=== PATIENT | male | born 1945 | race Caucasian/White ===

== ENCOUNTER 2018-07-07 09:39 | Inpatient (IN) | payer OTHER, BC ==
[2018-07-07] MEDS ORDERED: ACETAMINOPHEN 325 MG TABLET (FP) PO ONE (10:02)
[2018-07-07] MEDS ORDERED: ACETAMINOPHEN 325 MG TABLET (FP) ONE (10:20)
[2018-07-07] MEDS ORDERED: CLINDAMYCIN 600MG PREMIX IVPB 600 MG/50 ML BAG IVPB ONE ×2 (10:22→10:31)
[2018-07-07] MEDS ORDERED: PIPERACILLIN/TAZOB 4.5 GM 4.5 GM in DEXTROSE 5%-WATER 100 ML IVPB ONE (10:22)
[2018-07-07] MEDS ORDERED: morphine CARPU-JECT 4 MG/1 ML DISP.SYRIN IVPUSH ONE (10:22)
[2018-07-07] MEDS ORDERED: VANCOMYCIN 1 GM in D5W (PRE-DOCKED) 1,000 MG/250 ML IVPB ONE (10:22)
--- NOTE | 2018-07-07 10:24 | PDOC ---
Attending Attestation - Resident Resident Name: Cici Mcbride - ED Attending Attestation I have performed the following: I have examined & evaluated the patient, The case was reviewed & discussed with the resident, I agree w/resident's findings & plan - HPI HPI: 07/07/18 10:38 Александрandera 73 YOM with h/o peripheral arterial occlusive disease, Stage 3 CKD secondary to focal segmental glomerulosclerosis, CHF (EF 41%, on spirinolactone) , CAD s/p stents on ASA, HTN, HLD, Type 2 non insulin dependent diabetes mellitus, BPH presenting with progressively worsening left buttock and scrotal pain and swelling since yesterday, which started off as a boil on his buttock, today noted increasing burning pain and bruising to his scrotal sac. +fever and malaise, Tmax >100 in the ED. +constipation and SOB +smoking currently. prior PSH arthroscopy, inguinal hernia repair ~15 years ago and PCI cards: Dr Molina PMD Dr Heard 07/07/18 10:46 07/07/18 10:47 07/07/18 12:20 - Physicial Exam PE: 07/07/18 10:38 General: Ill appearing, moderate distress 2/2 fever. HEENT: NCAT, PERRL, EOMI, clear conjunctiva, anicteric, very dry mucus membranes Neck: neck supple, FROM Resp: poor inspiratory effort, mildly tachypneic CVS: RRR, no murmurs, 2+ peripheral pulses throughout, Abdomen: soft, protuberant, no rebound or guarding. : left buttock, perineum and scrotal erythema, firmness and tenderness; large edematous scrotal sac with +ecchymosis and tenderness along the underside Back: nontender, normal inspection and ROM MSK: no edema, SMALLS x4, ROM intact. No clubbing or cyanosis. normal bulk and tone. Neuro: alert Skin: warm and well perfused, cap refill <2 sec, very dry skin 07/07/18 12:10 - Critical Care Time Total Critical Care Time: 60 (severe sepsis/shock) Critical Care Statement: The care of this patient involved high complexity decision making to prevent further life threatening deterioration of the patient 's condition and/or to evaluate & treat vital organ system(s) failure or risk of failure. - Medical Decision Making 07/07/18 10:43 See HPI for details Vital signs reviewed, +febrile orally, moderate tachypnea 2/2 fevers. hemodynamically appropriate. DDx. nec fasciitis, fournieres gangrene, cellulitis, abscess, intra abdominal infection. Osteomyelitis, acute abdomen. Prior notes reviewed, including admissions, discharges and consultations. ED course: Highly suspicious for nec fasciitis/Fournieres gangrene with medical comorbidities and clinical presentation. Preop labs, TxS - sent Analgesia and antipyretics administered, broad spec abx. Surg cs with Dr Schmidt 1030am for evaluation and operative exploration/ evaluation. IV abx zosyn, vancomycin and clindamycin to cover for GN/GPs, anaerobes, mrsa and toxins if Clostridium, IVF, blood cultures drawn Npo since ~8am, no ASA today, took his usual meds today. - during ED stay, evolving ecchymosis/scrotal discoloration, and increased malodor. BP soft 90s/60s, being given IVF. continued to be monitored, on mainetnance fluids and s/p 2 L NSS for now. given low dose morphine for his weight, low suspicion for contribution to hypotension. 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 - lactic acidosis, likely from tissue ischemia/hypoperfusion and infection - given IVF, will need repeat. - labs and lytes with acidosis, leukocytosis 15K, c/w infection, acute on chronic kidney disease with Cr 1.1 --> 5, and mild K elevation with out acute EKG changes. old LBBB no anemia. lytes otherwise unremarkable. +ESR and CRP elevated as well. bedside limited soft tissue US: A lines diffusely c/w necrotizing fasciitis. not stable for imaging. planning for OR emergently with respective surgery team Dr Schmidt and Dr Olsen with urology ID consulted, broad spec abx administered spoke with cards Dr Slade, prior echo reviewed, requested per request of Dr Molina primary mutuel cashier. resident spoke with Dr Molina, pt's mutuel cashier. PMD noted LBBB in 2013, sent for additional testing. Had stenosis of LAD, prox and mid LAD stents placed. Most recent echo in May 2016 with EF 41% , moderately enlarged LV, mod-severe LV dysfunction, akinesis of septum w/ abnormal motion, moderately dilated b/l atrium, no valvular disease. ICU for higher level of care for septic shock 2/2 [address] CS with Dr Daigle and resident there notified.. admit for continued medical/surgical management. s/o RESIN COATER Ramirez, admitting to Dr Neumann 07/07/18 12:18 07/07/18 12:21 07/07/18 12:32 Heart Score/ECG Review #1 ECG reviewed & interpreted by me at: 10:00 General ECG Interpretation: Sinus Rhythm Compared to previous ECG there are: No significant change 07/07/18 11:57 EKG normal sinus rhythm at 95 bpm, no interval abnormalities, wide QRS, LBBB, ST and T wave segments and morphology normal. Nonspecific T wave abnormalities, LBBB noted similar to prior EKGs and mutuel cashier Procedures - Bedside Ultrasound Bedside Ultrasound: Skin Remarks: 07/07/18 11:39 POCUS soft tissue performed at bedside for perineum/scrotal swelling/erythema, eval for infection. views obtained: TV and sagittal of perineum and scrotal sac. findings include A line shadowing diffusely in all planes, small fluid collection. Impression: soft tissue fluid collection with A line/air artifacts c /w necrotizing fasciitis.
[2018-07-07] MEDS ORDERED: CLINDAMYCIN 900 MG PREMIX IVPB 900 MG/50 ML BAG IVPB ONE (10:28)
--- NOTE | 2018-07-07 10:28 | PDOC ---
History of Present Illness - History of Present Illness Initial Comments: Bam Carroll is a 73yo man with a PMH of DM, CAD s/p stents, HTN, HLD, COPD, RACHELE, PVD, BPH, h/o disk herniation who presents with 3 days of right buttock induration, now with scrotal swelling and discoloration, shortness of breath, constipation, urinary retention, and general malaise. He is most concerned about the constipation and "boil' on his buttock. He reports that he has been feeling very weak, and his notes that he fell 3 days ago and refused to go to the hospital when EMS was called. Since then, he has been unable to bear weight. He also notes constipation during the same time period, with his last BM 3 days ago. He has had a poor appetite and feels dehydrated. His urine has been dark with decreased output and some urgency, and he reports lower abdominal pain. He has had some shortness of breath worsening over the past few days as well. He also reports having a very painful "boil" on his right buttock, starting similar to a pimple, which he has had in the past. Previously, the boils resolved with warm compresses, but the area appears to be getting worse this time. His also reports that she noticed a bruise on his scrotum last night. She is very concerned that he looks generally ill. Neither of them has noted any fever recently. Mr Carroll reports smoking 2 PPD for many years, including the past few days, and drinks 6 beers per night. He takes Percocet 5/ 325 for chronic back pain approximately 3 times per day but this has not been helping with the recent buttock pain. He took all of his medications today other than his ASA. <Cici Mcbride - Last Filed: 07/07/18 19:39> <Hannah Boggs - Last Filed: 07/08/18 18:42> - General Chief Complaint: Weakness Stated Complaint: FEVER, WEAKNESS Time Seen by Provider: 07/07/18 10:22 Past History - Past Medical History Anemia: No Asthma: No Cancer: No Cardiac Disorders: Yes CVA: No COPD: No CHF: No Dementia: No Diabetes: Yes GI Disorders: No Disorders: Yes (uti) HTN: Yes Hypercholesterolemia: No Liver Disease: No Seizures: No Thyroid Disease: No - Surgical History Abdominal Surgery: Yes (hernia) Appendectomy: No Cardiac Surgery: Yes (stent) Cholecystectomy: No Lung Surgery: No Neurologic Surgery: No Orthopedic Surgery: Yes (left shoulder arthroscopy) - Suicide/Smoking/Psychosocial Hx Smoking History: Current every day smoker Have you smoked in the past 12 months: Yes Number of Cigarettes Smoked Daily: 40 If you are a former smoker, when did you quit?: NOVEMBER 2011 Information on smoking cessation initiated: Yes 'Breaking Loose' booklet given: 06/09/15 Hx Alcohol Use: Yes (beer every day) Drug/Substance Use Hx: No Substance Use Type: Alcohol Hx Substance Use Treatment: No <Cici Mcbride - Last Filed: 07/07/18 19:39> <Hannah Boggs - Last Filed: 07/08/18 18:42> - Past Medical History Allergies/Adverse Reactions: Allergies Allergy/AdvReac Type Severity Reaction Status Date / Time No Known Drug Allergies Allergy Verified 07/07/18 09:45 Home Medications: Ambulatory Orders Carvedilol [Coreg -] 25 mg PO BID 06/09/15 Cyanocobalamin (Vitamin B-12) [Vitamin B-12] 1,000 mcg PO DAILY 06/09/15 Folic Acid - 1 mg PO DAILY 06/09/15 Glyburide [Diabeta] 1.25 mg PO HS 06/09/15 Methyl-B12/l-Mefolate/B6 Phos [Metanx Tablet] 1 each PO BID 06/09/15 Multivit-Min/FA/Lycopen/Lutein [Centrum Silver Tablet] 1 each PO DAILY 06/09/15 [place]-3 Fatty Acids [Fish Oil] 1,200 mg PO BID 06/09/15 Rosuvastatin Calcium [Crestor] 40 mg PO DAILY 06/09/15 Silodosin [Rapaflo] 8 mg PO DAILY 06/09/15 Spironolactone [Aldactone] 25 mg PO DAILY 06/09/15 Glyburide [Diabeta -] 2.5 mg PO AM 07/07/18 Review of Systems - Review of Systems Comments:: General: No known fever, +malaise, +poor appetite HEENT: No changes in vision, no changes in hearing, no congestion, no sore throat CV: No chest pain, no palpitation Pulm: +increased SOB GI: No nausea or vomiting, +constipation, no melena : +dark urine, +scrotal swelling and "bruise" - See HPI Musc: +back pain, +BLE weakness (new) Skin: Erythema on R buttock, scrotum Endo: No excessive thirst, no heat/cold intolerance Heme: No unusual bruising or bleeding, no swollen glands Neuro: No syncope, no numbness/tingling, +BLE weakness Vasc: No claudication. h/o PVD Psych: No recent change in mood, no SI or HI <Cici Mcbride - Last Filed: 07/07/18 19:39> *Physical Exam - Vital Signs Last Vital Signs Temp Pulse Resp BP Pulse Ox 100.8 F H 93 H 22 H 119/54 L 97 07/07/18 09:40 07/07/18 09:40 07/07/18 09:40 07/07/18 09:40 07/07/18 09:59 - Physical Exam Comments: General: Appears ill. In moderate distress HEENT: . R eyelid does not open fully, injected sclera. EOMI. Dry mouth and lips. Cards: RRR, no murmur appreciated Pulm: Tachypnic. Loud expiratory wheeze. Abd: Protuberant. TTP in lower abd and suprapubic area /Vitals: Edematous, enlarged scrotum, TTP, indurated, erythematous. Inferior/ posterior scrotum with necrotic tissue visible. R buttock erythematous, indurated, no focal fluctuance or crepitus appreciated. Scrotum and R buttock TTP. Small amount of white crusting at urethral meatus. Ext: Atraumatic. Trace B/L pitting edema. ROM intact. b/l feet with white crusting/flaking between toes, possibly c/w fungal infection Vasc: Extremities WWP Neuro: Awake, oriented, CN grossly intact, normal speech, motor/sensory grossly intact and symmetric Psych: Mood appropriate to situation <Cici Mcbride - Last Filed: 07/07/18 19:39> - Vital Signs Last Vital Signs Temp Pulse Resp BP Pulse Ox 98.7 F 83 24 H 128/50 L 98 07/08/18 18:00 07/08/18 18:00 07/08/18 18:00 07/08/18 18:00 07/08/18 18:39 <Hannah Boggs - Last Filed: 07/08/18 18:42> Moderate Sedation - Procedure Monitoring Vital Signs: Procedure Monitoring Vital Signs Temperature 100.8 F H 07/07/18 09:40 Pulse Rate 93 H 07/07/18 09:40 Respiratory Rate 22 H 07/07/18 09:40 Blood Pressure 119/54 L 07/07/18 09:40 O2 Sat by Pulse Oximetry (%) 97 07/07/18 09:59 <Cici Mcbride - Last Filed: 07/07/18 19:39> - Procedure Monitoring Vital Signs: Procedure Monitoring Vital Signs Temperature 98.7 F 07/08/18 18:00 Pulse Rate 83 07/08/18 18:00 Respiratory Rate 24 H 07/08/18 18:00 Blood Pressure 128/50 L 07/08/18 18:00 O2 Sat by Pulse Oximetry (%) 98 07/08/18 18:39 <Hannah Boggs - Last Filed: 07/08/18 18:42> ED Treatment Course - LABORATORY CBC & Chemistry Diagram: 07/07/18 17:10 07/07/18 17:18 - RADIOLOGY Radiology Studies Ordered: Category Date Time Status CHEST X-RAY PORTABLE* [RAD] Stat Radiology 07/07/18 10:21 Ordered <iCci Mcbride - Last Filed: 07/07/18 19:39> - LABORATORY CBC & Chemistry Diagram: 07/08/18 05:30 07/08/18 05:30 - ADDITIONAL ORDERS Additional order review: 07/07/18 09:30 Blood Culture - Preliminary Blood - Peripheral Venous NO GROWTH OBTAINED AFTER 24 HOURS, INCUBATION TO CONTINUE FOR 4 DAYS. 07/07/18 09:20 Blood Culture - Preliminary Blood - Peripheral Venous NO GROWTH OBTAINED AFTER 24 HOURS, INCUBATION TO CONTINUE FOR 4 DAYS. 07/07/18 07/07/18 10:54 09:30 RBC 4.75 MCV 92.9 MCHC 34.6 RDW 14.4 MPV 9.0 Neutrophils % 89.9 H D Lymphocytes % 3.9 L D Monocytes % 5.8 Eosinophils % 0.1 D Basophils % 0.3 POC Glucometer 280 - Medications Given in the ED: ED Medications Discontinued Medications Generic Name Dose Route Start Last Admin Trade Name Freq PRN Reason Stop Dose Admin Acetaminophen 975 mg 07/07/18 10:02 07/07/18 10:23 Tylenol - PO 07/07/18 10:03 975 mg ONCE ONE Administration Albuterol Sulfate 1 amp 07/08/18 09:02 07/08/18 09:28 Ventolin 0.083% Nebulizer Soln - NEB 07/08/18 09:03 1 amp ONCE ONE Administration Albuterol Sulfate 1 amp 07/08/18 09:02 07/08/18 09:29 Ventolin 0.083% Nebulizer Soln - NEB 07/08/18 09:03 1 amp ONCE STA Administration Albuterol/Ipratropium 1 amp 07/08/18 06:13 07/08/18 07:10 Duoneb - NEB 07/08/18 06:14 1 amp ONCE ONE Administration Fentanyl 50 mcg 07/07/18 16:29 07/07/18 18:40 Sublimaze Injection - IVPUSH 07/08/18 06:00 50 mcg [id number] PRN Administration PAIN-PACU ORDER X 4 DOSES ONLY Heparin Sodium (Porcine) 5,000 unit 07/07/18 14:00 07/07/18 18:31 Heparin - SQ Not Given TID MIMI Clindamycin Phosphate 600 mg in 50 mls @ 100 mls/hr 07/07/18 10:22 07/07/18 11:02 Cleocin 600 Mg Premix Ivpb - IVPB 07/07/18 10:51 Not Given ONCE ONE Piperacillin Sod/Tazobactam 100 mls @ 200 mls/hr 07/07/18 10:22 07/07/18 11: 01 Sod 4.5 gm/ Dextrose IVPB 07/07/18 10:51 200 mls/hr ONCE ONE Administration Protocol Sodium Chloride 1,000 mls @ 150 mls/hr 07/07/18 10:30 07/07/18 11:16 Normal Saline - IV 150 mls/hr ASDIR MIMI Administration Sodium Chloride 1,000 mls @ 1,000 mls/hr 07/07/18 10:29 07/07/18 11:00 Normal Saline - IV 07/07/18 11:28 1,000 mls/hr ASDIR STA Administration Clindamycin Phosphate 900 mg in 50 mls @ 100 mls/hr 07/07/18 10:28 07/07/18 11:02 Cleocin 900 Mg Premix Ivpb - IVPB 07/07/18 10:57 100 mls/hr ONCE ONE Administration Vancomycin HCl 1,500 mg/ 500 mls @ 250 mls/hr 07/07/18 10:30 07/07/18 11:15 Dextrose IVPB 07/07/18 12:29 250 mls/hr ONCE ONE Administration Clindamycin Phosphate 600 mg in 50 mls @ 100 mls/hr 07/07/18 18:00 07/07/18 18:15 Cleocin 600 Mg Premix Ivpb - IVPB 100 mls/hr Q8H-IV MIMI Administration Protocol Sodium Chloride 1,000 mls @ 125 mls/hr 07/07/18 17:13 07/07/18 18:31 Normal Saline - IV 125 mls/hr ASDIR MIMI Administration Sodium Chloride 500 mls @ 500 mls/hr 07/08/18 02:56 07/08/18 04:45 Normal Saline - IV 07/08/18 03:55 500 mls/hr ASDIR STA Administration Lactated Ringer's 1,000 ml in 1,000 mls @ 1,000 mls/hr 07/08/18 11:13 11:20 Lactated Ringers Solution IV 07/08/18 12:12 1,000 mls/hr ONCE STA Administration Morphine Sulfate 4 mg 07/07/18 10:22 07/07/18 11:00 Morphine Injection - IVPUSH 07/07/18 10:23 4 mg ONCE ONE Administration Ondansetron HCl 4 mg 07/08/18 06:13 07/08/18 06:48 Zofran Injection IVPUSH 07/08/18 06:14 4 mg ONCE ONE Administration Sodium Chloride 1,000 ml 07/07/18 11:50 07/07/18 11:58 Normal Saline - IV 07/07/18 11:51 1,000 ml ONCE ONE Administration Sodium Chloride 1,000 ml 07/08/18 13:23 07/08/18 13:40 Normal Saline - IV 07/08/18 13:24 1,000 ml ONCE STA Administration Vancomycin HCl 1,000 mg 07/07/18 10:22 07/07/18 11:02 Vancomycin (Pre-Docked) IVPB 07/07/18 10:23 Not Given ONCE ONE Protocol Hannah Montoyadonato - Last Filed: 07/08/18 18:42> Medical Decision Making - Medical Decision Making 07/07/18 10:23 Bam Carroll is a 73yo man with a PMH of DM, CAD s/p stents, HTN, HLD, COPD, RACHELE, PVD, BPH, h/o disk herniation who presents with 3 days of right buttock induration, now with scrotal swelling and discoloration, shortness of breath, constipation, urinary retention, and general malaise. Infection in buttock, scrotum with necrotic tissue and malodor strongly suggesting raul's gangrene. - Surgery called - Sepsis workup ordered. CBC, CMP, cultures, lactate, trop, EKG, CXR, UA, urine culture. Adding ESR, CRP - 1L NS - Clindamycin, vanc, zosyn for suspected raul's - 4mg IV morphine for pain - Acetaminophen for fever 07/07/18 11:20 - Dr Schmidt to bedside. 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 PMD noted LBBB in 2013, sent for additional testing. Had stenosis of LAD, prox and mid LAD stents placed. Most recent echo in May 2016 with EF 41%, moderately enlarged LV, mod-severe LV dysfunction, akinesis of septum w/ abnormal motion, moderately dilated b/l atrium, no valvular disease. Recommending Dr Jeffery for cardiology consult. - Call placed to Dr Jeffery - Seen by Dr Huston, industrial refrigeration mechanic for Dr Vogel - Waiting for call back from medicine 07/07/18 11:54 - Dr Boggs spoke to admitting team, will come to see Mr Carroll - ICU called for consult - Chemistry resulted. Cr 5.0, most recent in system is 1.1. Potassium over 5 w/ o EKG changes. Lactate pending. - Will continue IV fluids - Bedside US completed w/ Dr Boggs. Indicates air in tissues, suggestive of gas- producing infection 07/07/18 12:14 - Necrotic tissue on scrotum now weeping - BP 90's/30's, continuing IVF - Called ICU a second time, spoke to Dr Boggs and will come to evaluate - Calling OR to see if they are ready for Mr Carroll to be brought up Seen and discussed with Dr Boggs. 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
[2018-07-07] MEDS ORDERED: SODIUM CHLORIDE 1,000 ML IV STA (10:29)
[2018-07-07] MEDS ORDERED: morphine SULFATE 4 MG/ML VIAL ONE (10:29)
[2018-07-07] MEDS ORDERED: VANCOMYCIN HCL 1,500 MG in DEXTROSE 5%-WATER - 500 ML IVPB ONE (10:30)
[2018-07-07] MEDS ORDERED: SODIUM CHLORIDE 1,000 ML IV SCH ×4 (10:30→20:35)
[2018-07-07] MEDS ORDERED: PIPERACILLIN/TAZOB 4.5 GM 4.5 GM/100 ML BAG IVPB ONE (10:30)
[2018-07-07] MEDS ORDERED: VANCOMYCIN 1 GRAM (PRE-DOCKED) 1,000 MG/250 ML BAG IVPB ONE (10:30)
[2018-07-07 11:00] LABS: BASO % 0.3 % (0-2.0); EOS % 0.1 % (0-4.5); HEMATOCRIT 44.1 % (35.4-49); HEMOGLOBIN 15.3 GM/dL (11.7-16.9); LYMPH % 3.9 % (8-40); MCH 32.1 pg (25.7-33.7); MCHC 34.6 g/dl (32.0-35.9); MEAN CELL VOLUME 92.9 fl (80-96); MONO % 5.8 % (3.8-10.2); NEUT % 89.9 % (42.8-82.8); PLATELET COUNT 228 K/MM3 (134-434); RBC 4.75 M/mm3 (4.00-5.60); RDW 14.4 % (11.9-15.9); WHITE BLOOD COUNT 15.5 K/mm3 (4.0-10.0)
[2018-07-07 11:04] LABS: VENOUS PC02 50.2 mmHg (41-51); VENOUS PH 7.22 (7.31-7.41); VENOUS PO2 30.8 mmHg (30-40)
[2018-07-07 11:09] LABS: INR 1.13 (0.83-1.09); PROTHROMBIN TIME (PATIENT) 13.3 SEC (9.7-13.0)
[2018-07-07 11:11] LABS: ACTIVATED PTT 32.2 SECONDS (25.2-36.5)
[2018-07-07 11:43] LABS: ALBUMIN 2.5 g/dl (3.4-5.0); ALK PHOS 91 U/L (45-117); ANION GAP 12 MMOL/L (8-16); BILIRUBIN,TOTAL 0.4 mg/dL (0.2-1); BLOOD UREA NITROGEN 75 mg/dL (7-18); CALCIUM 8.9 mg/dL (8.5-10.1); CHLORIDE 100 mmol/L (98-107); CO2 21 mmol/L (21-32); GLUCOSE,RANDOM 273 mg/dL (74-106); POTASSIUM 5.3 mmol/L (3.5-5.1); SGOT/AST 55 U/L (15-37); SGPT/ALT 53 U/L (13-61); SODIUM 133 mmol/L (136-145); TOT PROT 6.2 g/dl (6.4-8.2)
[2018-07-07] MEDS ORDERED: SODIUM CHLORIDE 0.9% 500 ML INFUS.BAG IV ONE (11:50)
--- NOTE | 2018-07-07 11:52 | CONSULT ---
Consult Consult Specialty:: General Surgery Referred by:: Hannah Boggs Reason for Consultation:: Nika's gangrene - History of Present Illness Chief Complaint: perirectal pain, redness, constipation History of Present Illness: 73yo M with HTN, HLD, CAD, afib, BPH, DM, PVD, CKD s/p bilateral hip replacement , inguinal hernia repair, cardiac stents, presents with perirectal pain for 3-4 days at home and no BM for 3 days (unusual per pt). He had associated sweats and chills but denies fever, has not eaten much in last few days but has not had N/V. He fell from bed to floor Tuesday and EMS was called to help him up, but he refused to go to hospital per sister. He states he only bumped his right leg a little, no sig trauma. He was feeling weak though, per family, legs not holding him up. He took all meds this morning except baby asa, last the day before. Had coffee this am with a little milk, but nothing to eat today. Has not checked sugars at home for a few days. Smokes 2ppd last cig this morning, drinks about a 6pk of beer daily but not for a few days. Denies tremors, shakes , blackouts if not drinking. Takes Percocet 5/325 up to tid at home for chronic back pain. Also on aldactone, had this morning. 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 Labs are partially back showing wbc 15, Hb 15, fingerstick was 280. Clinda, Zosyn and Vanco are being given with saline. Temp was 100.8. BP running a bit low in 90s systolic. He had a dose of morphine 4mg. He admits to some lower abdominal/pelvic pain, related to this complaint. Urology Dr. Huston came to evaluate him with me as well. Pt's doctors include Dr. Feldman, nephrology, Dr. Medeiros, urology, Dr. Molina, cardiology, and a pain management doctor. - History Source History Provided By: Patient, Family Member (sister) Limitations to Obtaining History: No Limitations - Past Medical History Cardio/Vascular: Yes: CAD, HTN, Hyperlipdemia Pulmonary: Yes: Sleep Apnea Renal/: Yes: Renal Inusuff, BPH Musculoskeletal: Yes: Chronic low back pain, Osteoarthritis Endocrine: Yes: Diabetes Mellitus - Past Surgical History Past Surgical History: Yes: Cataract Removal (bilateral), Hernia Repair ( inguinal), Joint Replacement (bilateral hips), Stent (coronary x 3) - Alcohol/Substance Use Hx Alcohol Use: Yes (beer 6pk daily) History of Substance Use: reports: None (no illicits), Prescription (Percocet 5/ 325 up to tid) - Smoking History Smoking history: Current every day smoker Have you smoked in the past 12 months: Yes Aproximately how many cigarettes per day: 40 - Social History ADL: Independent History of Recent Travel: No Home Medications - Allergies Allergies/Adverse Reactions: Allergies Allergy/AdvReac Type Severity Reaction Status Date / Time No Known Drug Allergies Allergy Verified 07/07/18 09:45 - Home Medications Home Medications: Ambulatory Orders Carvedilol [Coreg -] 25 mg PO BID 06/09/15 Cyanocobalamin (Vitamin B-12) [Vitamin B-12] 1,000 mcg PO DAILY 06/09/15 Folic Acid - 1 mg PO DAILY 06/09/15 Glyburide [Diabeta] 1.25 mg PO HS 06/09/15 Methyl-B12/l-Mefolate/B6 Phos [Metanx Tablet] 1 each PO BID 06/09/15 Multivit-Min/FA/Lycopen/Lutein [Centrum Silver Tablet] 1 each PO DAILY 06/09/15 [place]-3 Fatty Acids [Fish Oil] 1,200 mg PO BID 06/09/15 Rosuvastatin Calcium [Crestor] 40 mg PO DAILY 06/09/15 Silodosin [Rapaflo] 8 mg PO DAILY 06/09/15 Spironolactone [Aldactone] 25 mg PO DAILY 06/09/15 Glyburide [Diabeta -] 2.5 mg PO AM 07/07/18 Home Medications (free text): asa 81mg daily - last 2d ago Family Disease History - Family Disease History Family History: Unable to Obtain (noncontributory) Review of Systems - Review of Systems Constitutional: reports: Chills, Diaphoresis, Loss of Appetite. denies: Fever Eyes: denies: Blurred Vision, Recent Change in Vision HENT: denies: Difficult Swallowing, Nasal Congestion, Throat Pain Neck: denies: Swollen Glands, Tenderness Cardiovascular: denies: Chest Pain, Palpitations Respiratory: reports: Wheezing (occasionally). denies: Cough, SOB Gastrointestinal: reports: Abdominal Pain (lower/pelvic), Constipation (with hpi ). denies: Diarrhea, Nausea, Vomiting Genitourinary: reports: Testicular Pain, Testicular Swelling (scrotal swelling) Musculoskeletal: reports: Back Pain. denies: Joint Pain, Muscle Pain Integumentary: reports: Change in Color, Erythema (perirectal/perineal/scrotal) Neurological: denies: Dizziness, Headache Psychiatric: denies: Anxiety, Depression Physical Exam Vital Signs: Vital Signs Temperature 100.8 F H 07/07/18 09:40 Pulse Rate 78 07/07/18 11:05 Respiratory Rate 24 H 07/07/18 11:05 Blood Pressure 90/45 L 07/07/18 11:05 O2 Sat by Pulse Oximetry (%) 94 L 07/07/18 11:05 Constitutional: Yes: Calm, Diaphoresis, Mild Distress (secondary to pain), Obese Eyes: Yes: Conjunctiva Clear, EOM Intact, Ptosis (right eye lids partially closed - pt did not notice) HENT: Yes: Atraumatic, Normocephalic Neck: Yes: Supple, Trachea Midline Cardiovascular: Yes: Regular Rate and Rhythm (distant heart sounds) Respiratory: Yes: Regular, Wheezes (faint expiratory wheezing bilaterally, breath sounds hard to hear posteriorly) Gastrointestinal: Yes: Normal Bowel Sounds, Soft, Abdomen, Obese, Tenderness ( mild low/pelvic no R/G) ...Rectal Exam: Yes: Erythema (right perineum and gluteal fold erythematous, indurated, tender, + gas in tissues on bedside US), Induration, Inflammation, Sphincter Tone Normal, Other (large prostate, little yellow liquid stool on glove tip) Renal/: Yes: Scrotal Edema (with erythema, posterior bruising with expanding area of purple/black skin). No: Urethral Discharge Musculoskeletal: No: Joint Stiffness, Joint Swelling Extremities: No: Cool, Cyanosis Edema: No Peripheral Pulses WNL: Yes (difficult to palpate but present) Integumentary: Yes: Erythema (see above - perineally). No: Jaundice, Rash Neurological: Yes: Alert, Oriented Psychiatric: Yes: Alert, Oriented Labs: CBC, BMP 07/07/18 09:30 CMP Sodium 133 mmol/L (136-145) L 07/07/18 09:30 Potassium 5.3 mmol/L (3.5-5.1) H 07/07/18 09:30 Chloride 100 mmol/L (98-107) 07/07/18 09:30 Carbon Dioxide 21 mmol/L (21-32) 07/07/18 09:30 Anion Gap 12 MMOL/L (8-16) 07/07/18 09:30 BUN 75 mg/dL (7-18) H 07/07/18 09:30 Creatinine 5.0 mg/dL (0.55-1.3) H 07/07/18 09:30 Creat Clearance w eGFR 11.50 (>60) 07/07/18 09:30 POC Glucometer 280 UNITS (80-120) 07/07/18 10:54 Random Glucose 273 mg/dL (74-106) H 07/07/18 09:30 Lactic Acid 3.4 mmol/L (0.4-2.0) H* 07/07/18 09:39 Calcium 8.9 mg/dL (8.5-10.1) 07/07/18 09:30 Total Bilirubin 0.4 mg/dL (0.2-1) 07/07/18 09:30 AST 55 U/L (15-37) H 07/07/18 09:30 ALT 53 U/L (13-61) 07/07/18 09:30 Alkaline Phosphatase 91 U/L (45-117) 07/07/18 09:30 Troponin I 0.04 ng/ml (0.00-0.05) 07/07/18 09:30 C-Reactive Protein 44.6 MG/DL (0.00-0.3) H 07/07/18 09:30 Total Protein 6.2 g/dl (6.4-8.2) L 07/07/18 09:30 Albumin 2.5 g/dl (3.4-5.0) L 07/07/18 09:30 INR, PTT INR 1.13 (0.83-1.09) H 07/07/18 09:30 Imaging - Results Ultrasound: Other (bedside done by ER shows some gas in tissue planes at scrotum and right perineum) Problem List - Problems (1) Nika's gangrene Assessment/Plan: admit to medicine, may need ICU NPO/generous IV hydration - very dry by labs IV antibiotics including Clinda started - ID consultation, Dr. Perry aware seen and discussed with Dr. Huston of Urology - Dr. Olsen to assist in OR cardiology consult Discussed with patient risks, benefits and alternatives of local possible wide debridement of Nika's gangrene, including but not limited to bleeding, infection, injury to adjacent structures, loss of testicle(s), need for further procedures, ; alternatives include antibiotics, delayed or no surgery - risks of this include progression of necrosis, sepsis, need for more extensive debridement/procedures, . Patient desires to proceed with operation - will take to OR emergently with Urology for above. Informed consent signed for same. Anesthesia plans spinal anesthetic possible ICU postop Parson to be placed intraoperatively GI/DVT prophylaxis glucose control This patient is critically ill. Time spent reviewing chart, examining patient, talking with providers and/or family and documentation is 60 minutes. Code(s): N49.3 - NIKA GANGRENE (2) Perineal pain Code(s): R10.2 - PELVIC AND PERINEAL PAIN (3) Scrotal pain Code(s): N50.82 - SCROTAL PAIN (4) CKD (chronic kidney disease) stage 3, GFR 30-59 ml/min Code(s): N18.3 - CHRONIC KIDNEY DISEASE, STAGE 3 (MODERATE) (5) BPH (benign prostatic hyperplasia) Code(s): N40.0 - BENIGN PROSTATIC HYPERPLASIA WITHOUT LOWER URINRY TRACT SYMP Qualifiers: Lower urinary tract symptom presence: unspecified whether lower urinary tract symptoms present Qualified Code(s): N40.0 - Benign prostatic hyperplasia without lower urinary tract symptoms (6) Coronary artery disease Code(s): I25.10 - ATHSCL HEART DISEASE OF [place] CORONARY ARTERY W/O ANG PCTRS Qualifiers: Coronary Disease-Associated Artery/Lesion type: [place] artery [place] vs. transplanted heart: [place] heart Associated angina: without angina Qualified Code(s): I25.10 - Atherosclerotic heart disease of [place] coronary artery without angina pectoris (7) Hyperlipidemia Code(s): E78.5 - HYPERLIPIDEMIA, UNSPECIFIED Qualifiers: Hyperlipidemia type: unspecified Qualified Code(s): E78.5 - Hyperlipidemia , unspecified (8) Hypertension Code(s): I10 - ESSENTIAL (PRIMARY) HYPERTENSION Qualifiers: Hypertension type: essential hypertension Qualified Code(s): I10 - Essential (primary) hypertension (9) Diabetes mellitus type 2 in obese Code(s): E11.69 - TYPE 2 DIABETES MELLITUS WITH OTHER SPECIFIED COMPLICATION; E66.9 - OBESITY, UNSPECIFIED (10) Tobacco dependence due to cigarettes Code(s): F17.210 - NICOTINE DEPENDENCE, CIGARETTES, UNCOMPLICATED
--- NOTE | 2018-07-07 12:13 | HP ---
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 He comes to the ED today with c/o of progressive pain and tenderness of his right scrotal region and left buttock region and swelling that started 4 days ago that worsened yesterday. The wound area started as a boil on this left buttocks yesterday and he noted to gradually decrease in size and today noted some burning pain and bruising and dark wound on his right scrotal sac. He had chills and diaphoresis at home. Did not take his temperature but felt as though he had a fever. He reports constipation and some shortness of breath with physical exertion. He reports poor PO intake and weakness for last few days. He usually drinks 6 pack of beer daily, but has not done so in last 2 days since he has not been feeling well. Did not take ASA this morning, took his Aldactone. In the ER labs revealed: fever of 100.8, leukocytosis 15, dyspnea, PIYUSH and hypotension. He was given Clindamycin, Zosyn and Vancomycin with fluid boluses. Blood cultures drawn. 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 ER course was notable for: (1) severe sepsis, necrotic tissue of right scrotum with weeping and foul odor. given clindamycin, vanco and zosyn. 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 CAD, history of stents Hypertension Hyperlipidemia Type 2 diabetes mellitus BPH PAST SURGICAL HISTORY: SH arthroscopy, inguinal hernia repair ~15 years ago and PCI Social History: Smokin packs per day, everyday Alcohol: 6 pack of beer every day, sometimes less Drugs: on oxycodone for chronic back pain Family History: Allergies No Known Drug Allergies Allergy (Verified 03/22/19 09:45) HOME MEDICATIONS: Home Medications Medication Instructions Recorded Carvedilol [Coreg -] 25 mg PO BID 06/09/15 Cyanocobalamin (Vitamin B-12) 1,000 mcg PO DAILY 06/09/15 [Vitamin B-12] Folic Acid - 1 mg PO DAILY 06/09/15 Glyburide [Diabeta] 1.25 mg PO HS 06/09/15 Methyl-B12/l-Mefolate/B6 Phos 1 each PO BID 06/09/15 [Metanx Tablet] Multivit-Min/FA/Lycopen/Lutein 1 each PO DAILY 06/09/15 [Centrum Silver Tablet] [place]-3 Fatty Acids [Fish Oil] 1,200 mg PO BID 06/09/15 Rosuvastatin Calcium [Crestor] 40 mg PO DAILY 06/09/15 Silodosin [Rapaflo] 8 mg PO DAILY 06/09/15 Spironolactone [Aldactone] 25 mg PO DAILY 06/09/15 Glyburide [Diabeta -] 2.5 mg PO AM 07/07/18 REVIEW OF SYSTEMS CONSTITUTIONAL: PRESENT: fever, chills, diaphoresis, generalized weakness, malaise, loss of appetite HEENT: Absent: rhinorrhea, nasal congestion, throat pain, throat swelling, difficulty swallowing, mouth swelling, ear pain, eye pain, visual changes CARDIOVASCULAR: Absent: chest pain, syncope, palpitations, irregular heart rate, lightheadedness , peripheral edema RESPIRATORY: Absent: cough, shortness of breath, dyspnea with exertion, orthopnea, wheezing, stridor, hemoptysis GASTROINTESTINAL: Absent: abdominal pain, abdominal distension, nausea, vomiting, diarrhea, constipation, melena, hematochezia GENITOURINARY: PRESENT: dysuria, genital pain MUSCULOSKELETAL: Absent: myalgia, arthralgia, joint swelling, back pain, neck pain SKIN: PRESENT: rash, itching HEMATOLOGIC/IMMUNOLOGIC: Absent: easy bleeding, easy bruising, lymphadenopathy, frequent infections ENDOCRINE: Absent: unexplained weight gain, unexplained weight loss, heat intolerance, cold intolerance NEUROLOGIC: Absent: headache, focal weakness or paresthesias, dizziness, unsteady gait, seizure, mental status changes, bladder or bowel incontinence PSYCHIATRIC: Absent: anxiety, depression, suicidal or homicidal ideation, hallucinations. PHYSICAL EXAMINATION Vital Signs - 24 hr 07/07/18 07/07/18 07/07/18 09:40 09:59 10:30 Temperature 100.8 F H Pulse Rate 93 H Pulse Rate [ 81 Apical] Respiratory 22 H 26 H Rate Blood Pressure 119/54 L Blood Pressure 98/47 L [Right Arm] O2 Sat by Pulse 97 97 94 L Oximetry (%) 07/07/18 07/07/18 07/07/18 11:05 11:15 11:30 Temperature Pulse Rate Pulse Rate [ 78 79 77 Apical] Respiratory 24 H 24 H 30 H Rate Blood Pressure Blood Pressure 90/45 L 87/55 L 99/46 L [Right Arm] O2 Sat by Pulse 94 L 92 L 93 L Oximetry (%) 07/07/18 07/07/18 11:45 12:01 Temperature Pulse Rate Pulse Rate [ 75 74 Apical] Respiratory 23 H 24 H Rate Blood Pressure Blood Pressure 88/41 L 99/34 L [Right Arm] O2 Sat by Pulse 93 L 94 L Oximetry (%) GENERAL: Awake, alert, and fully oriented, having pain and tenderness to right scrotum - pallorous and diaphoretic HEAD: Normal with no signs of trauma. EYES: Pupils equal, round and reactive to light, extraocular movements intact, sclera anicteric, conjunctiva clear. No lid lag. EARS, NOSE, THROAT: Ears normal, nares patent, oropharynx clear without exudates. moist mucous membranes. NECK: Normal range of motion, supple without lymphadenopathy, JVD, or masses. LUNGS: wheezing bilaterally HEART: Regular rate and rhythm, hypotensive on monitor ABDOMEN: obese soft abdomen MUSCULOSKELETAL: Normal range of motion at all joints. No bony deformities or tenderness. No CVA tenderness. UPPER EXTREMITIES: No peripheral edema. LOWER EXTREMITIES: trace peripheral edema. NEUROLOGICAL: Normal speech. Normal gait. PSYCHIATRIC: Cooperative. Good eye contact. Appropriate mood and affect. SKIN: left buttock, perineum and scrotal erythema, firmness and tenderness, foul odor, large edematous scrotal sac with +ecchymosis and tenderness along the underside, clear drainage. SKIN: , Laboratory Results - last 24 hr 07/07/18 07/07/18 07/07/18 09:30 09:30 09:30 WBC 15.5 H RBC 4.75 Hgb 15.3 Hct 44.1 MCV 92.9 MCH 32.1 MCHC 34.6 RDW 14.4 Plt Count 228 MPV 9.0 Absolute Neuts (auto) 14.0 H Neutrophils % 89.9 H D Lymphocytes % 3.9 L D Monocytes % 5.8 Eosinophils % 0.1 D Basophils % 0.3 Nucleated RBC % 0 ESR PT with INR 13.30 H INR 1.13 H PTT (Actin FS) 32.2 VBG pH 7.22 L POC VBG pCO2 50.2 POC VBG pO2 30.8 VBG HCO3 19.7 L VBG O2 Sat ([place]) 47.2 L VBG Base Excess -8.1 L Sodium Potassium Chloride Carbon Dioxide Anion Gap BUN Creatinine Creat Clearance w eGFR POC Glucometer Random Glucose Lactic Acid Calcium Total Bilirubin AST ALT Alkaline Phosphatase Troponin I C-Reactive Protein Total Protein Albumin 07/07/18 07/07/18 07/07/18 09:30 09:30 09:30 WBC RBC Hgb Hct MCV MCH MCHC RDW Plt Count MPV Absolute Neuts (auto) Neutrophils % Lymphocytes % Monocytes % Eosinophils % Basophils % Nucleated RBC % ESR 63 H PT with INR INR PTT (Actin FS) VBG pH POC VBG pCO2 POC VBG pO2 VBG HCO3 VBG O2 Sat (Elizabeth) VBG Base Excess Sodium 133 L Potassium 5.3 H Chloride 100 Carbon Dioxide 21 Anion Gap 12 BUN 75 H Creatinine 5.0 H Creat Clearance w eGFR 11.50 POC Glucometer Random Glucose 273 H Lactic Acid Calcium 8.9 Total Bilirubin 0.4 AST 55 H ALT 53 Alkaline Phosphatase 91 Troponin I 0.04 C-Reactive Protein 44.6 H Total Protein 6.2 L Albumin 2.5 L 07/07/18 07/07/18 09:39 10:54 WBC RBC Hgb Hct MCV MCH MCHC RDW Plt Count MPV Absolute Neuts (auto) Neutrophils % Lymphocytes % Monocytes % Eosinophils % Basophils % Nucleated RBC % ESR PT with INR INR PTT (Actin FS) VBG pH POC VBG pCO2 POC VBG pO2 VBG HCO3 VBG O2 Sat (Elizabeth) VBG Base Excess Sodium Potassium Chloride Carbon Dioxide Anion Gap BUN Creatinine Creat Clearance w eGFR POC Glucometer 280 Random Glucose Lactic Acid 3.4 H* Calcium Total Bilirubin AST ALT Alkaline Phosphatase Troponin I C-Reactive Protein Total Protein Albumin ASSESSMENT/PLAN: Patient is a 73 year old male with a significant past medical history of Ischemic right first toe with peripheral arterial occlusive disease, Stage 3 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 He comes to the ED today with c/o of progressive pain and tenderness of his right scrotal region and left buttock region and swelling that started 4 days ago that worsened yesterday. The wound area started as a boil on this left buttocks yesterday and he noted to gradually decrease in size and today noted some burning pain and bruising and dark wound on his right scrotal sac. He had chills and diaphoresis at home. Did not take his temperature but felt as though he had a fever. He reports constipation and some shortness of breath with physical exertion. In the ER labs revealed: fever of 100.8, leukocytosis 15, dyspnea, PIYUSH and hypotension. He was given Clindamycin, Zosyn and Vancomycin with fluid boluses. Blood cultures drawn. 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 ID/: Severe sepsis. 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 severe sepsis secondary to necrotic tissue of right scrotum with weeping and foul odor. given clindamycin, vanco and zosyn. blood cultures pending (wbc, tachycardia, hypotension, dyspena, lactic acidosis) stat to the OR today ekg: NSR LBBB, qtc 485 ID consulted by the ED ICU monitoring Renal Stage 3 CKD, baseline creat 1.1 PIYUSH in the setting of severe sepsis and scrotal abscess/infection Parson to be placed in surgery Monitor output Endocrine: Diabetes/type II DM novolog ss, bgms Card: Hypertension, now hypotensive severe sepsis fluid bolus lactic acid 3.4 repeat lactic acid ICU monitoring CAD, history of stents, Hyperlipidemia continue statin therapy lipid panel in a.m. cardiology following fen npo for or monitor electrolytes prophy full code Visit type - Emergency Visit Emergency Visit: Yes Care time: The patient presented to the Emergency Department on the above date and was hospitalized for further evaluation of their emergent condition. - New Patient This patient is new to me today: Yes Date on this admission: 07/07/18 - Critical Care Critical Care patient: No
[2018-07-07] MEDS ORDERED: BUPIVACAINE HCL/PF 0.5% (5MG/ML) 10 ML VIAL ONE (12:37)
[2018-07-07] MEDS ORDERED: morphine SULFATE 4 MG/ML VIAL IVPUSH PRN ×3 (12:52→20:35)
[2018-07-07] MEDS ORDERED: MIDAZOLAM HCL 2 MG/2 ML SINGLE DOSE VIAL ONE ×2 (13:18→13:19)
--- NOTE | 2018-07-07 13:28 | CONSULT ---
Consult Consult Specialty:: ICU Referred by:: Emergency Med/Surgery Reason for Consultation:: Postop care for fourniere's gangrene - History of Present Illness Chief Complaint: Scrotal swelling x1 week. 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 Pt has had night sweats and chills over the past week intermittently, and today was unable to walk for severe pain. Pt has not used any antibiotic or got any scrotal drainage prior to presentation and in the past, he has had numerous boils in the scrotal area that have resolved spontaneously without drainage or antibiotic use. Patient was septic- with WBC-15.5, BUN/Cr-75/5 VBG-7.22/50.2/30.8 EKG-Vent rate 95bpm, LBBB (unchanged from prior) with afib - History Source History Provided By: Patient, Family Member, Significant Other, Medical Record Limitations to Obtaining History: No Limitations - Past Medical History Cardio/Vascular: Yes: CAD, HTN, Hyperlipdemia Pulmonary: Yes: Sleep Apnea Renal/: Yes: Renal Inusuff, BPH Musculoskeletal: Yes: Chronic low back pain, Osteoarthritis Endocrine: Yes: Diabetes Mellitus - Past Surgical History Past Surgical History: Yes: Cataract Removal (bilateral), Hernia Repair ( inguinal), Joint Replacement (bilateral hips), Stent (coronary x 3) - Alcohol/Substance Use Hx Alcohol Use: Yes (beer every day) History of Substance Use: reports: None (no illicits), Prescription (Percocet 5/ 325 up to tid) - Smoking History Smoking history: Current every day smoker Have you smoked in the past 12 months: Yes Aproximately how many cigarettes per day: 40 If you are a former smoker, when did you quit?: NOVEMBER 2011 - Social History ADL: Independent History of Recent Travel: No Home Medications - Allergies Allergies/Adverse Reactions: Allergies Allergy/AdvReac Type Severity Reaction Status Date / Time No Known Drug Allergies Allergy Verified 07/07/18 09:45 - Home Medications Home Medications: Ambulatory Orders Carvedilol [Coreg -] 25 mg PO BID 06/09/15 Cyanocobalamin (Vitamin B-12) [Vitamin B-12] 1,000 mcg PO DAILY 06/09/15 Folic Acid - 1 mg PO DAILY 06/09/15 Glyburide [Diabeta] 1.25 mg PO HS 06/09/15 Methyl-B12/l-Mefolate/B6 Phos [Metanx Tablet] 1 each PO BID 06/09/15 Multivit-Min/FA/Lycopen/Lutein [Centrum Silver Tablet] 1 each PO DAILY 06/09/15 [place]-3 Fatty Acids [Fish Oil] 1,200 mg PO BID 06/09/15 Rosuvastatin Calcium [Crestor] 40 mg PO DAILY 06/09/15 Silodosin [Rapaflo] 8 mg PO DAILY 06/09/15 Spironolactone [Aldactone] 25 mg PO DAILY 06/09/15 Glyburide [Diabeta -] 2.5 mg PO AM 07/07/18 Review of Systems - Review of Systems Constitutional: reports: Chills, Fever, Malaise, Night Sweats Cardiovascular: denies: Chest Pain, Palpitations, Shortness of Breath Respiratory: denies: Cough Gastrointestinal: denies: Abdominal Pain Genitourinary: reports: Testicular Pain, Testicular Swelling Neurological: denies: Change in LOC, Confusion, Numbness Physical Exam Vital Signs: Vital Signs Temperature 100.8 F H 07/07/18 09:40 Pulse Rate 76 07/07/18 12:30 Respiratory Rate 26 H 07/07/18 12:30 Blood Pressure 106/41 L 07/07/18 12:30 O2 Sat by Pulse Oximetry (%) 95 07/07/18 12:30 Constitutional: Yes: Obese Eyes: Yes: Conjunctiva Clear HENT: Yes: Other (Dry mucous membranes) Neck: Yes: Supple Cardiovascular: Yes: S1, S2 Respiratory: Yes: CTA Bilaterally Gastrointestinal: Yes: Normal Bowel Sounds, Abdomen, Obese ...Rectal Exam: Yes: Deferred Renal/: Yes: Scrotal Edema (Hyperemic and markedly swollen tender bilateral scrotum. With 5x 5cm eschar more over posterior scrotum. No visible pus, markedly tender on mild palpation, firm. R inguinal tenderness, testes present in scrotum b/l.) Edema: No Peripheral Pulses WNL: Yes Neurological: Yes: Alert, Oriented ...Motor Strength: WNL Psychiatric: Yes: Alert, Oriented Labs: CBC, BMP 07/07/18 09:30 07/07/18 09:30 Assessment/Plan Ambulatory Orders Carvedilol [Coreg -] 25 mg PO BID 06/09/15 Cyanocobalamin (Vitamin B-12) [Vitamin B-12] 1,000 mcg PO DAILY 06/09/15 Folic Acid - 1 mg PO DAILY 06/09/15 Glyburide [Diabeta] 1.25 mg PO HS 06/09/15 Methyl-B12/l-Mefolate/B6 Phos [Metanx Tablet] 1 each PO BID 06/09/15 Multivit-Min/FA/Lycopen/Lutein [Centrum Silver Tablet] 1 each PO DAILY 06/09/15 [place]-3 Fatty Acids [Fish Oil] 1,200 mg PO BID 06/09/15 Rosuvastatin Calcium [Crestor] 40 mg PO DAILY 06/09/15 Silodosin [Rapaflo] 8 mg PO DAILY 06/09/15 Spironolactone [Aldactone] 25 mg PO DAILY 06/09/15 Glyburide [Diabeta -] 2.5 mg PO AM 07/07/18 Current Medications Acetaminophen (Tylenol -) 650 mg PO Q6H PRN PRN Reason: Pain Level 4-10 Carvedilol (Coreg -) 25 mg PO BID [facility] Chlorhexidine Gluconate (Hibiclens For Decolonization -) 1 applic TP HS [facility] Fentanyl (Sublimaze Injection -) 50 mcg IVPUSH [id number] PRN PRN Reason: PAIN-PACU ORDER X 4 DOSES ONLY Stop: 07/08/18 06:00 Folic Acid (Folic Acid -) 1 mg PO DAILY [facility] Heparin Sodium (Porcine) (Heparin -) 5,000 unit SQ TID [facility] Clindamycin Phosphate (Cleocin 600 Mg Premix Ivpb -) 600 mg in 50 mls @ 100 mls /hr IVPB Q8H-IV [facility]; Protocol Piperacillin Sod/Tazobactam (Sod 2.25 gm/ Dextrose) 50 mls @ 100 mls/hr IVPB Q6H-IV [facility]; Protocol Lactated Ringer's (Lactated Ringers Solution) 1,000 mls @ 125 mls/hr IV ASDIR [facility] Sodium Chloride (Normal Saline -) 1,000 mls @ 125 mls/hr IV ASDIR [facility] Insulin Aspart (Novolog Vial Sliding Scale -) 1 vial SQ ACHS [facility]; Protocol Morphine Sulfate (Morphine Sulfate) 4 mg IVPUSH Q4H PRN PRN Reason: PAIN 4-6 Mupirocin (Bactroban Ointment (For Decolonization) -) 1 applic NS BID [facility] Stop: 07/12/18 21:59 Nicotine (Nicoderm Patch -) 14 mg TD DAILY [facility] Ondansetron HCl (Zofran Injection) 4 mg IVPUSH Q6H PRN PRN Reason: NAUSEA AND/OR VOMITING Stop: 07/08/18 06:00 Oxycodone HCl (Roxicodone -) 5 mg PO Q6H PRN PRN Reason: Pain Level 7 - 10 BREAKTHROUGH Promethazine HCl (Phenergan Injection -) 12.5 mg IVPUSH Q6H PRN PRN Reason: NAUSEA-FOR RESCUE AFTER 15 MIN Stop: 07/08/18 06:00 Rosuvastatin Calcium (Crestor -) 40 mg PO [facility] Pt is a 73 yo M with a significant PMHx of Ischemic right first toe, PAD, 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 qsofa-2 (RR-23, 88/41, sats 93%)- High risk SOFA score-7 (<33% mortality) Bcx- pending AB- per ID Pt received -1L NS in ED Pt on zosyn -2.25mg Q6H-07/07/18 On clindamycin 600mg Q8H Cont NS @125/hr Bolus as needed to maintain MAP >65 Surgical debridement stat- Dr Medrano case Pain mx-Morphine 4mg Q4H, Oxycodone 5mg Q6H #Endo DM ISS Q6H BGM Q6H #Renal PIYUSH on CKD Likely prerenal in setting of sepsis Cont hydration CMP #Urology Fourniere's gangrene For Emergent surgical debridement #Cardio CAD Previous cardiac and peripheral stents Hypotensive Aggressive hydration, bolus as needed PAD High risk for VTE Hep sq Cont coreg 25mg bid #Resp Was on room air prior to surgery Supplemental O2 as needed to Maintain sats >92 Pt on CPAP at home- reports PSV of 6 Respiratory therapy order in for CPAP at night #FEN NS Monitor Lytes NPO #PPx Hep sq 5000 Q8h #Dispo ICU level care Visit type - Emergency Visit Emergency Visit: Yes ED Registration Date: 07/07/18 Care time: The patient presented to the Emergency Department on the above date and was hospitalized for further evaluation of their emergent condition. - New Patient This patient is new to me today: Yes Date on this admission: 07/07/18 - Critical Care Critical Care patient: Yes Total Critical Care Time (in minutes): 45 Critical Care Statement: The care of this patient involved high complexity decision making to prevent further life threatening deterioration of the patient 's condition and/or to evaluate & treat vital organ system(s) failure or risk of failure.
[2018-07-07] MEDS ORDERED: HEPARIN NA (PORCINE) 5,000 UNITS/ML 1ML VIAL SQ SCH (14:00)
--- NOTE | 2018-07-07 14:52 | CONSULT ---
Consult Consult Specialty:: Nephrology Reason for Consultation:: PIYUSH - History of Present Illness Chief Complaint: left buttock and scrotal pain History of Present Illness: Pt is a 73 year old male with pmhx of CKD, FSGS, PAD, CHF, CAD, cardiac stents, htn, HLD, bph and DM who presents to the ER with left buttock pain and scrotal edema. He has had the symptoms for the last 5 days but he felt they were worse today. He was found to have a fever in the ER. He is going to the OR and I saw him in OR holding. I was called to evaluate him for PIYUSH. He has been making urine but says that his urine was dark this morning. He did take his spironolactone today as well. He received about 3 liters of saline so far. - History Source History Provided By: Patient, Medical Record - Past Medical History Cardio/Vascular: Yes: CAD, HTN, Hyperlipdemia Pulmonary: Yes: Sleep Apnea Renal/: Yes: Renal Inusuff, BPH Musculoskeletal: Yes: Chronic low back pain, Osteoarthritis Endocrine: Yes: Diabetes Mellitus - Past Surgical History Past Surgical History: Yes: Cataract Removal (bilateral), Hernia Repair ( inguinal), Joint Replacement (bilateral hips), Stent (coronary x 3) - Alcohol/Substance Use Hx Alcohol Use: Yes (beer every day) History of Substance Use: reports: None (no illicits), Prescription (Percocet 5/ 325 up to tid) - Smoking History Smoking history: Current every day smoker Have you smoked in the past 12 months: Yes Aproximately how many cigarettes per day: 40 If you are a former smoker, when did you quit?: NOVEMBER 2011 - Social History ADL: Independent History of Recent Travel: No Home Medications - Allergies Allergies/Adverse Reactions: Allergies Allergy/AdvReac Type Severity Reaction Status Date / Time No Known Drug Allergies Allergy Verified 07/07/18 09:45 - Home Medications Home Medications: Ambulatory Orders Carvedilol [Coreg -] 25 mg PO BID 06/09/15 Cyanocobalamin (Vitamin B-12) [Vitamin B-12] 1,000 mcg PO DAILY 06/09/15 Folic Acid - 1 mg PO DAILY 06/09/15 Glyburide [Diabeta] 1.25 mg PO HS 06/09/15 Methyl-B12/l-Mefolate/B6 Phos [Metanx Tablet] 1 each PO BID 06/09/15 Multivit-Min/FA/Lycopen/Lutein [Centrum Silver Tablet] 1 each PO DAILY 06/09/15 [place]-3 Fatty Acids [Fish Oil] 1,200 mg PO BID 06/09/15 Rosuvastatin Calcium [Crestor] 40 mg PO DAILY 06/09/15 Silodosin [Rapaflo] 8 mg PO DAILY 06/09/15 Spironolactone [Aldactone] 25 mg PO DAILY 06/09/15 Glyburide [Diabeta -] 2.5 mg PO AM 07/07/18 Family Disease History - Family Disease History Family History: Denies Review of Systems - Review of Systems Constitutional: reports: Chills, Malaise Eyes: reports: No Symptoms HENT: reports: No Symptoms Neck: reports: No Symptoms Cardiovascular: reports: No Symptoms Respiratory: reports: No Symptoms Gastrointestinal: reports: No Symptoms Genitourinary: reports: Pain, Testicular Pain Musculoskeletal: reports: No Symptoms Integumentary: reports: No Symptoms Neurological: reports: No Symptoms Endocrine: reports: No Symptoms Hematology/Lymphatic: reports: No Symptoms Psychiatric: reports: No Symptoms Physical Exam Vital Signs: Vital Signs Temperature 100.8 F H 07/07/18 09:40 Pulse Rate 76 07/07/18 12:30 Respiratory Rate 26 H 07/07/18 12:30 Blood Pressure 106/41 L 07/07/18 12:30 O2 Sat by Pulse Oximetry (%) 95 07/07/18 12:30 Constitutional: Yes: Calm Eyes: Yes: Conjunctiva Clear HENT: Yes: Atraumatic Neck: Yes: Supple Cardiovascular: Yes: S1, S2 Respiratory: Yes: On Nasal O2 Gastrointestinal: Yes: Soft, Abdomen, Obese Renal/: Yes: Scrotal Edema Musculoskeletal: Yes: WNL Neurological: Yes: Oriented Psychiatric: Yes: Oriented Labs: CBC, BMP 07/07/18 09:30 07/07/18 09:30 Laboratory Tests 06/09/15 07/07/18 07/07/18 12:41 09:30 09:30 WBC 15.5 H Hgb 15.3 Sodium 133 L Potassium 5.3 H Chloride 100 Carbon Dioxide 21 Anion Gap 12 BUN 75 H Creatinine 5.0 H Random Glucose 273 H Lactic Acid Urine Color Yellow Urine Appearance Clear Urine pH 5.0 Ur Specific [place] 1.020 Urine Protein 3+ H Urine Glucose (UA) Negative Urine Ketones Negative Urine Blood Negative Urine Nitrite Negative Urine Bilirubin Negative Urine Urobilinogen Negative Ur Leukocyte Esterase Negative 07/07/18 07/07/18 09:39 11:30 WBC Hgb Sodium Potassium Chloride Carbon Dioxide Anion Gap BUN Creatinine Random Glucose Lactic Acid 3.4 H* 2.0 Urine Color Urine Appearance Urine pH Ur Specific [place] Urine Protein Urine Glucose (UA) Urine Ketones Urine Blood Urine Nitrite Urine Bilirubin Urine Urobilinogen Ur Leukocyte Esterase Imaging - Results Chest X-ray: Report Reviewed Problem List - Problems (1) Acute kidney injury superimposed on CKD Code(s): N17.9 - ACUTE KIDNEY FAILURE, UNSPECIFIED; N18.9 - CHRONIC KIDNEY DISEASE, UNSPECIFIED (2) Diabetes mellitus type 2 in obese Code(s): E11.69 - TYPE 2 DIABETES MELLITUS WITH OTHER SPECIFIED COMPLICATION; E66.9 - OBESITY, UNSPECIFIED (3) Diabetes Code(s): E11.9 - TYPE 2 DIABETES MELLITUS WITHOUT COMPLICATIONS Qualifiers: Diabetes mellitus type: type 2 Diabetes mellitus complication status: with circulatory complication Diabetes mellitus complication detail: with peripheral angiopathy without gangrene Qualified Code(s): E11.51 - Type 2 diabetes mellitus with diabetic peripheral angiopathy without gangrene (4) FSGS (focal segmental glomerulosclerosis) Code(s): N05.1 - UNSP NEPH SYNDROME W FOCAL AND SEGMENTAL GLOMERULAR LESIONS (5) Hypertension Code(s): I10 - ESSENTIAL (PRIMARY) HYPERTENSION Qualifiers: Hypertension type: essential hypertension Qualified Code(s): I10 - Essential (primary) hypertension Assessment/Plan Current Medications Generic Name Dose Route Start Last Admin Trade Name Freq PRN Reason Stop Dose Admin Chlorhexidine Gluconate 1 applic 07/07/18 22:00 Hibiclens For Decolonization - TP HS [facility] Heparin Sodium (Porcine) 5,000 unit 07/07/18 14:00 Heparin - SQ TID [facility] Sodium Chloride 1,000 mls @ 150 mls/hr 07/07/18 10:30 07/07/18 11:16 Normal Saline - IV 150 mls/hr ASDIR [facility] Administration Insulin Aspart 1 vial 07/07/18 16:30 Novolog Vial Sliding Scale - SQ ACHS [facility] Protocol Morphine Sulfate 4 mg 07/07/18 12:52 Morphine Sulfate IVPUSH Q4H PRN PAIN 4-6 Mupirocin 1 applic 07/07/18 22:00 Bactroban Ointment (For Decolonization) - NS 07/12/18 21:59 BID [facility] Impression 1. CKD with hx of FSGS 2. PVD 3. DM 4. HTN 5. hyperlipidemia 6. BPH 7. CAD 8. fourniers gangrene Plan - repeat bmp - check ua and lytes - pt will get whiting in or - check renal ultrasound - follow prelim renal workup - pt going to ICU for post op care - follow repeat potassium - hold spironolactone
--- NOTE | 2018-07-07 16:09 | CON.ID ---
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 He came to the ED today with c/ o of progressive pain and tenderness of his right scrotal region and left buttock region and swelling that started 4 days ago that worsened yesterday. The wound area started as a boil on this left buttocks yesterday and he noted to gradually decrease in size and today noted some burning pain and bruising and dark wound on his right scrotal sac. surgery has seen the patient and patient being taken immediately to the operating room with surgery and urology operated the patient patient septic scrotum was very tender and wound foul smellin patient has undergone extensive debridement of the wound also patient has gone into renal failure with high creatinine patient now in the icu he got vanco zosyn and clinda had to be operated under spinal because of resp issues - History Source History Provided By: Patient, Medical Record Limitations to Obtaining History: Clinical Condition - Past Medical History Cardio/Vascular: Yes: CAD, HTN, Hyperlipdemia Pulmonary: Yes: Sleep Apnea Renal/: Yes: Renal Inusuff, BPH Musculoskeletal: Yes: Chronic low back pain, Osteoarthritis Endocrine: Yes: Diabetes Mellitus - Past Surgical History Past Surgical History: Yes: Cataract Removal (bilateral), Hernia Repair ( inguinal), Joint Replacement (bilateral hips), Stent (coronary x 3) - Alcohol/Substance Use Hx Alcohol Use: Yes (beer every day) History of Substance Use: reports: None (no illicits), Prescription (Percocet 5/ 325 up to tid) - Smoking History Smoking history: Current every day smoker Have you smoked in the past 12 months: Yes Aproximately how many cigarettes per day: 40 If you are a former smoker, when did you quit?: NOVEMBER 2011 - Social History ADL: Independent History of Recent Travel: No Home Medications - Allergies Allergies/Adverse Reactions: Allergies Allergy/AdvReac Type Severity Reaction Status Date / Time No Known Drug Allergies Allergy Verified 07/07/18 09:45 - Home Medications Home Medications: Ambulatory Orders Carvedilol [Coreg -] 25 mg PO BID 06/09/15 Cyanocobalamin (Vitamin B-12) [Vitamin B-12] 1,000 mcg PO DAILY 06/09/15 Folic Acid - 1 mg PO DAILY 06/09/15 Glyburide [Diabeta] 1.25 mg PO HS 06/09/15 Methyl-B12/l-Mefolate/B6 Phos [Metanx Tablet] 1 each PO BID 06/09/15 Multivit-Min/FA/Lycopen/Lutein [Centrum Silver Tablet] 1 each PO DAILY 06/09/15 [place]-3 Fatty Acids [Fish Oil] 1,200 mg PO BID 06/09/15 Rosuvastatin Calcium [Crestor] 40 mg PO DAILY 06/09/15 Silodosin [Rapaflo] 8 mg PO DAILY 06/09/15 Spironolactone [Aldactone] 25 mg PO DAILY 06/09/15 Glyburide [Diabeta -] 2.5 mg PO AM 07/07/18 Review of Systems - Review of Systems Constitutional: reports: Fever Eyes: reports: No Symptoms HENT: reports: No Symptoms Neck: reports: No Symptoms Cardiovascular: reports: No Symptoms Respiratory: reports: SOB Gastrointestinal: reports: Abdominal Pain, Other Genitourinary: reports: Other (discoloration of the scrotal skin with boils) Musculoskeletal: reports: No Symptoms Neurological: reports: No Symptoms Endocrine: reports: No Symptoms Hematology/Lymphatic: reports: No Symptoms Psychiatric: reports: No Symptoms Physical Exam Vital Signs: Vital Signs Temperature 100.8 F H 07/07/18 09:40 Pulse Rate 76 07/07/18 12:30 Respiratory Rate 26 H 07/07/18 12:30 Blood Pressure 106/41 L 07/07/18 12:30 O2 Sat by Pulse Oximetry (%) 95 07/07/18 12:30 Constitutional: Yes: Well Nourished, Moderate Distress, Obese, Poor Hygeine Eyes: Yes: Conjunctiva Clear HENT: Yes: Atraumatic, Normocephalic Neck: Yes: Supple, Trachea Midline Cardiovascular: Yes: Regular Rate and Rhythm Respiratory: Yes: Regular, Poor Air Entry (bases) Gastrointestinal: Yes: Soft, Other (absent bowel sounds) Renal/: Yes: Scrotal Edema, Other (scrotal skin debridement) Musculoskeletal: Yes: Other Extremities: Yes: Other Wound/Incision: Yes: Other (dressing wet) Neurological: Yes: Alert Psychiatric: Yes: Alert Labs: CBC, BMP 07/07/18 09:30 07/07/18 09:30 Imaging - Results Chest X-ray: Report Reviewed, Image Reviewed X-ray: Report Reviewed, Image Reviewed Assessment/Plan Problem List - Problems (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 (2) Perineal pain Code(s): R10.2 - PELVIC AND PERINEAL PAIN (3) Scrotal pain Code(s): N50.82 - SCROTAL PAIN (4) CKD (chronic kidney disease) stage 3, GFR 30-59 ml/min Code(s): N18.3 - CHRONIC KIDNEY DISEASE, STAGE 3 (MODERATE) (5) BPH (benign prostatic hyperplasia) Code(s): N40.0 - BENIGN PROSTATIC HYPERPLASIA WITHOUT LOWER URINRY TRACT SYMP Qualifiers: Lower urinary tract symptom presence: unspecified whether lower urinary tract symptoms present Qualified Code(s): N40.0 - Benign prostatic hyperplasia without lower urinary tract symptoms (6) Coronary artery disease Code(s): I25.10 - ATHSCL HEART DISEASE OF [place] CORONARY ARTERY W/O ANG PCTRS Qualifiers: Coronary Disease-Associated Artery/Lesion type: [place] artery [place] vs. transplanted heart: [place] heart Associated angina: without angina Qualified Code(s): I25.10 - Atherosclerotic heart disease of [place] coronary artery without angina pectoris (7) Hyperlipidemia Code(s): E78.5 - HYPERLIPIDEMIA, UNSPECIFIED Qualifiers: Hyperlipidemia type: unspecified Qualified Code(s): E78.5 - Hyperlipidemia , unspecified (8) Hypertension Code(s): I10 - ESSENTIAL (PRIMARY) HYPERTENSION Qualifiers: Hypertension type: essential hypertension Qualified Code(s): I10 - Essential (primary) hypertension (9) Diabetes mellitus type 2 in obese Code(s): E11.69 - TYPE 2 DIABETES MELLITUS WITH OTHER SPECIFIED COMPLICATION; E66.9 - OBESITY, UNSPECIFIED (10) Tobacco dependence due to cigarettes Assessment/Plan: nicotine patch in use Code(s): F17.210 - NICOTINE DEPENDENCE, CIGARETTES, UNCOMPLICATED plan will continue abx await for cx reports close watch on the patient resp support wound care rest as per surgery cc 45 min
[2018-07-07] MEDS ORDERED: ONDANSETRON 4 MG/2 ML VIAL IVPUSH PRN (16:29)
[2018-07-07] MEDS ORDERED: PROMETHAZINE HCL 25 MG/1 ML VIAL IVPUSH PRN (16:29)
[2018-07-07] MEDS ORDERED: INSULIN SLIDING SCALE (NOVOLOG) 1 VIAL SQ SCH (16:30)
[2018-07-07] MEDS ORDERED: LACTATED RINGERS SOLUTION 1,000 ML IV SCH (16:30)
--- NOTE | 2018-07-07 16:38 | CON.CARD ---
Consult Consult Specialty:: Cardiology Referred by:: ER Reason for Consultation:: preop cardiac evaluation - History of Present Illness Chief Complaint: scrotal gangrene History of Present Illness: 73 year old man past medical history of Ischemic right first toe with peripheral arterial occlusive disease s/p multiple prior peripheral stents, Stage 3 CKD secondary to focal segmental glomerulosclerosis, CAD history of stent prox and mid LAD stents, moderate to severe LV systolic dysfunction on last echo 2017, chronic systolic CHF, Hypertension, Hyperlipidemia, type 2 diabetes mellitus, BPH. came to ER with c/o of progressive pain and tenderness of his right scrotal region and left buttock region and swelling that started 4 days ago that worsened yesterday. 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 Pt seen and examined in PACU in nad. denies any chest pain, sob, palpitations either now or recently prior to admission. denies LE edema. states he does not take Lasix at home. - History Source History Provided By: Patient, Medical Record Limitations to Obtaining History: No Limitations - Past Medical History Cardio/Vascular: Yes: CAD, CHF, HTN, Hyperlipdemia Pulmonary: Yes: Sleep Apnea Renal/: Yes: Renal Inusuff, BPH Musculoskeletal: Yes: Chronic low back pain, Osteoarthritis Endocrine: Yes: Diabetes Mellitus - Past Surgical History Past Surgical History: Yes: Cataract Removal (bilateral), Hernia Repair ( inguinal), Joint Replacement (bilateral hips), Stent (coronary x 3) - Alcohol/Substance Use Hx Alcohol Use: Yes (beer every day) History of Substance Use: reports: None (no illicits), Prescription (Percocet 5/ 325 up to tid) - Smoking History Smoking history: Current every day smoker Have you smoked in the past 12 months: Yes Aproximately how many cigarettes per day: 40 If you are a former smoker, when did you quit?: NOVEMBER 2011 - Social History ADL: Independent History of Recent Travel: No Home Medications - Allergies Allergies/Adverse Reactions: Allergies Allergy/AdvReac Type Severity Reaction Status Date / Time No Known Drug Allergies Allergy Verified 07/07/18 09:45 - Home Medications Home Medications: Ambulatory Orders Carvedilol [Coreg -] 25 mg PO BID 06/09/15 Cyanocobalamin (Vitamin B-12) [Vitamin B-12] 1,000 mcg PO DAILY 06/09/15 Folic Acid - 1 mg PO DAILY 06/09/15 Glyburide [Diabeta] 1.25 mg PO HS 06/09/15 Methyl-B12/l-Mefolate/B6 Phos [Metanx Tablet] 1 each PO BID 06/09/15 Multivit-Min/FA/Lycopen/Lutein [Centrum Silver Tablet] 1 each PO DAILY 06/09/15 [place]-3 Fatty Acids [Fish Oil] 1,200 mg PO BID 06/09/15 Rosuvastatin Calcium [Crestor] 40 mg PO DAILY 06/09/15 Silodosin [Rapaflo] 8 mg PO DAILY 06/09/15 Spironolactone [Aldactone] 25 mg PO DAILY 06/09/15 Glyburide [Diabeta -] 2.5 mg PO AM 07/07/18 Family Disease History - Family Disease History Family History: Denies Review of Systems - Review of Systems Constitutional: reports: Fever, Malaise, Weakness Eyes: denies: No Symptoms, Blind Spots, Blurred Vision, Double Vision, Eye Pain , Floaters, Photophobia, Recent Change in Vision, Other HENT: denies: No Symptoms, Difficult Swallowing, Ear Discharge, Ear Pain, Epistaxis, Gingival Bleeding, Hearing Loss, Mouth Swelling, Nasal Congestion, Ocular Prosthesis, Throat Pain, Toothache, Ringing in Ears, Other Neck: denies: No Symptoms, Decreased ROM, Lumps, Pain on Movement, Stiffness, Swollen Glands, Tenderness, Other Cardiovascular: denies: No Symptoms, Chest Pain, Edema, Palpitations, Shortness of Breath, Other Respiratory: denies: No Symptoms, Cough, Exercise Intolerance, Hemoptysis, Orthopnea, PND, Snoring, SOB, SOB on Exertion, Wheezing, Other Genitourinary: reports: Lesions, Testicular Mass, Testicular Swelling Musculoskeletal: reports: No Symptoms Integumentary: reports: Lesions, Wound Neurological: reports: No Symptoms Endocrine: denies: No Symptoms, Excessive Sweating, Flushing, Increased Hunger, Increased Thirst, Intolerance to Cold, Intolerance to Heat, Unexplained Weight Gain, Unexplained Weight Loss, Other Hematology/Lymphatic: denies: No Symptoms, Easily Bruised, Excessive Bleeding, Swollen Glands, Other Psychiatric: denies: No Symptoms, Altered Sleep Pattern, Anxiety, Depression, Hallucinations, Panic, Paranoia, Suicidal, Other Vital Signs: Vital Signs Temperature 100.8 F H 07/07/18 09:40 Pulse Rate 76 07/07/18 12:30 Respiratory Rate 26 H 07/07/18 12:30 Blood Pressure 106/41 L 07/07/18 12:30 O2 Sat by Pulse Oximetry (%) 95 07/07/18 12:30 Constitutional: Yes: No Distress, Calm, Obese Eyes: Yes: Conjunctiva Clear, EOM Intact, PERRL HENT: Yes: Atraumatic, Normocephalic Neck: Yes: Supple, Trachea Midline Respiratory: Yes: Regular, Diminished, On Nasal O2. No: Rales, Rhonchi, SOB, Wheezes Gastrointestinal: Yes: Normal Bowel Sounds, Soft. No: Distention, Tenderness Cardiovascular: Yes: Regular Rate and Rhythm. No: Bradycardia, Tachycardia, Pulse Irregular, Gallop, Rub, Varicosities JVD: No Carotid Bruit: No PMI: Non-Displaced Heart Sounds: Yes: S1, S2. No: Split S2, S3, S4, Clicks, Gallop, Rub, Bruit Murmur: No: Systolic Murmur, Diastolic Murmur Edema: No Peripheral Pulses WNL: Yes Neurological: Yes: Alert, Oriented Psychiatric: Yes: Alert, Oriented - Other Data Labs, Other Data: CBC, BMP 07/07/18 09:30 07/07/18 09:30 INR, PTT INR 1.13 (0.83-1.09) H 07/07/18 09:30 Troponin, BNP 07/07/18 09:30 Troponin I 0.04 Troponin, BNP 07/07/18 09:30 Troponin I 0.04 nsr 95bpm lbbb Imaging - Results EKG: Report Reviewed Assessment/Plan 73 year old man past medical history of Ischemic right first toe with peripheral arterial occlusive disease s/p multiple prior peripheral stents, Stage 3 CKD secondary to focal segmental glomerulosclerosis, CAD history of stent prox and mid LAD stents, moderate to severe LV systolic dysfunction on last echo 2016, chronic systolic CHF, Hypertension, Hyperlipidemia, type 2 diabetes mellitus, BPH. came to ER with c/o of progressive pain and tenderness of his right scrotal region and left buttock region and swelling that started 4 days ago that worsened yesterday. 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 Perioperative cardiac risk -now s/p emergent surgery tolerated from a cardiac standpoint -history of CAD and stents and ischemic cardiomyopathy with moderate to severe LV systolic dysfunction -no active cardiac issue currently -when tolerates plan to resume bblocker and statin -do not restart home spironolactone in setting of MEENA -fluid resuscitation as needed for sepsis and MEENA -can use IV Lasix prn -when safe to do so would resume ASA 81mg daily -ekg chronic LBBB -pt has multiple cardiac risk factors including known cardiac disease as above. If further extensive surgical procedures are needed it would be reasonable to be done at a tertiary care center. -remainder of care as per surgery, ICU, ID
--- NOTE | 2018-07-07 17:02 | OP ---
Operative Note - Note: Operative Date: 07/07/18 Pre-Operative Diagnosis: Nika's gangrene, sepsis Operation: debridement of Nika's gangrene/necrotizing infection of perineum , right perirectal area, scrotum (with urology) - skin/subcutaneous tissue/ fascia/muscle 600cm2 Findings: extensive necrotic tissue in scrotum, tunicae, though testicles were intact and viable; perineal area, right perirectal area - likely started as perirectal abscess on right with necrotic tracts into ischiorectal fossa; cultures taken of scrotal tissue, perirectal necrotic pockets/fluid; tissue cultures sent from perineal and perirectal/ischiorectal area; see Dr. Olsen's separate note - testicles tucked under remaining scrotal skin which was tacked to hold/cover them; entire wound bed packed with 3 rolls of Kerlix gauze dampened with betadine and saline Post-Operative Diagnosis: Same as Pre-op (of scrotum, perineum, right perirectal area) Surgeon: Tashi [employer] Op: Nikunj Olsen (co-surgeon) Anesthesiologist/AUTOMATIC SCREWMAKER: Dawson Han (w/AAnne Aye) Anesthesia: Spinal Specimens Removed: cultures taken of scrotal tissue, perirectal necrotic pockets /fluid; tissue cultures sent from perineal and perirectal/ischiorectal area; perineal tissue debrided and sent to pathology in multiple pieces Estimated Blood Loss (mls): 100 Instrument used (Debridements only): cautery, forceps, scissors, clamps Drains & Tubes with Location: 18Fr Parson catheter placed by urologist and left in place Drains, Volume Out (mls): 500 (UOP) Fluid Volume Replaced (mls): 2,000 (crystalloid) Operative Report Dictated: Yes
[2018-07-07] MEDS ORDERED: ACETAMINOPHEN 325 MG TABLET (FP) PO PRN ×2 (17:07→20:35)
[2018-07-07] MEDS ORDERED: oxyCODONE HCL 5 MG TABLET PO PRN ×2 (17:08→20:35)
[2018-07-07 17:44] LABS: BASO % 0.3 % (0-2.0); EOS % 0.1 % (0-4.5); HEMATOCRIT 40.2 % (35.4-49); HEMOGLOBIN 13.6 GM/dL (11.7-16.9); LYMPH % 4.6 % (8-40); MCH 31.8 pg (25.7-33.7); MEAN CELL VOLUME 93.7 fl (80-96); MEAN PLT VOLUME 9.1 fl (7.5-11.1); MONO % 4.1 % (3.8-10.2); NEUT % 90.9 % (42.8-82.8); PLATELET COUNT 205 K/MM3 (134-434); RBC 4.28 M/mm3 (4.00-5.60); WHITE BLOOD COUNT 13.9 K/mm3 (4.0-10.0)
[2018-07-07 17:56] LABS: ALBUMIN 2.1 g/dl (3.4-5.0); ALK PHOS 80 U/L (45-117); ANION GAP 10 MMOL/L (8-16); BILIRUBIN,TOTAL 0.2 mg/dL (0.2-1); BLOOD UREA NITROGEN 71 mg/dL (7-18); CALCIUM 8.4 mg/dL (8.5-10.1); CHLORIDE 102 mmol/L (98-107); CO2 20 mmol/L (21-32); CREATININE 4.8 mg/dL (0.55-1.3); GLUCOSE,RANDOM 246 mg/dL (74-106); MAGNESIUM 2.4 mg/dL (1.8-2.4); PHOSPHOROUS 5.8 mg/dL (2.5-4.9); POTASSIUM 5.1 mmol/L (3.5-5.1); SGOT/AST 42 U/L (15-37); SGPT/ALT 42 U/L (13-61); SODIUM 133 mmol/L (136-145); TOT PROT 5.5 g/dl (6.4-8.2)
[2018-07-07] MEDS ORDERED: CLINDAMYCIN 600MG PREMIX IVPB 600 MG/50 ML BAG IVPB SCH (18:00)
[2018-07-07] MEDS ORDERED: CLINDAMYCIN PHOSPHATE 600 MG/4 ML VIAL ONE (18:23)
[2018-07-07 18:54] LABS: PLATELET ESTIMATE ADEQUATE
[2018-07-07] MEDS ORDERED: PIPERACILLIN/TAZOB 2.25 GM 2.25 GM in DEXTROSE 5%-WATER - 50 ML IVPB SCH (21:00)
[2018-07-07] MEDS ORDERED: CHLORHEXIDINE GLUCONATE 4% CLEANSER FOR DECOLONIZATION TP SCH (22:00)
[2018-07-07] MEDS ORDERED: CARVEDILOL 25 MG TABLET (FP) PO SCH (22:00)
[2018-07-07] MEDS ORDERED: MUPIROCIN 2% TOPICAL OINTMENT FOR DECOLONIZATION NS SCH (22:00)
[2018-07-07] MEDS ORDERED: ROSUVASTATIN CA 20 MG TABLET (FP) PO SCH (22:00)
[2018-07-07] MEDS ORDERED: DEXTROSE 5%-WATER - 50 ML IVPB ONE (22:06)
[2018-07-07] MEDS ORDERED: PIPERACILLIN/TAZOBACTAM 2.25 GM VIAL IVPB ONE (22:06)
[2018-07-07] MEDS: PIPERACILLIN/TAZOB 2.25 GM 2.25 GM in DEXTROSE 5%-WATER - 50 ML IVPB SCH (22:10)
[2018-07-07] MEDS: HEPARIN NA (PORCINE) 5,000 UNITS/ML 1ML VIAL SQ SCH (22:10)
[2018-07-08 00:28] LABS: ARTERIAL BLD GAS O2 SATURATION 96.9 % (95-98); ARTERIAL BLOOD GAS BASE EXCESS -11.7 meq/l (-2-2); ARTERIAL BLOOD GAS PCO2 41.5 mmHg (35-45); ARTERIAL BLOOD GAS PO2 111 mmHg (80-105)
--- NOTE | 2018-07-08 02:34 | PN ---
Progress Note (short form) - Note Progress Note: Called to evaluate pt in pacu. Pt had been placed on bedpan and become less responsive and lethargic. Upon arrival pt with low saturation, which had happened throughout afternoon and resolved with pulse oximetry detector adjustment. Attempted to adjust pulse oximetry monitor without improvement of saturation. Pt appeared clammy and lethargic at that time. During evaluation, pt became unresponsive with asystole on the monitor no pulses were felt on femoral or carotid arteries by multiple providers. Code 99 called at 10:24 pm. ACLS protocol followed and ROSC was achieved. Pt self extubated following ROSC, was following all commands and able to converse and answer questioning, requesting to have a drink of water. Please see code sheet for further details. Etiology of arrest unknown at this time however like patient had mucus plug with significant secretions noted and quick recovery Aspiration precautions Post ROSC labs, EKG CXR, ABG Pt transported from PACU to ICU once bed available
[2018-07-08] MEDS ORDERED: SODIUM CHLORIDE 500 ML IV STA (02:56)
--- NOTE | 2018-07-08 02:59 | RAPID ---
Physical Examination Vital Signs: Vital Signs Temperature 98.7 F 07/08/18 02:39 Pulse Rate 95 H 07/08/18 02:39 Respiratory Rate 33 H 07/08/18 02:39 Blood Pressure 113/65 07/08/18 02:39 O2 Sat by Pulse Oximetry (%) 95 07/08/18 01:04 Findings/Remarks: code 99 called 10:24 pm. ACLS protocol initiated and followed. Multiple rounds of epinephrine and chest compressions were performed. Patient was intubated. ROSC was achieved and patient was transferred to the ICU for further management. Please see code sheet for full details. Labs: CBC, BMP 07/07/18 17:10 07/07/18 17:18 Critical Care Total Critical Care Time (in minutes): 70 Critical Care Statement: The care of this patient involved high complexity decision making to prevent further life threatening deterioration of the patient 's condition and/or to evaluate & treat vital organ system(s) failure or risk of failure.
[2018-07-08] MEDS: MUPIROCIN 2% TOPICAL OINTMENT FOR DECOLONIZATION NS SCH ×3 (04:44→22:00)
[2018-07-08] MEDS: ROSUVASTATIN CA 20 MG TABLET (FP) PO SCH ×2 (04:45→21:09)
[2018-07-08] MEDS: CARVEDILOL 25 MG TABLET (FP) PO SCH ×3 (04:45→21:09)
[2018-07-08] MEDS ORDERED: PIPERACILLIN/TAZOBACTAM 2.25 GM VIAL IVPB ONE ×5 (04:48→21:01)
[2018-07-08] MEDS ORDERED: DEXTROSE 5%-WATER - 50 ML IVPB ONE ×5 (04:48→21:01)
[2018-07-08] MEDS: CLINDAMYCIN 600MG PREMIX IVPB 600 MG/50 ML BAG IVPB SCH ×3 (04:50→17:37)
[2018-07-08] MEDS: PIPERACILLIN/TAZOB 2.25 GM 2.25 GM in DEXTROSE 5%-WATER - 50 ML IVPB SCH ×4 (04:51→21:58)
[2018-07-08] MEDS: HEPARIN NA (PORCINE) 5,000 UNITS/ML 1ML VIAL SQ SCH ×3 (04:59→21:59)
[2018-07-08] MEDS: INSULIN SLIDING SCALE (NOVOLOG) 1 VIAL SQ SCH ×5 (05:00→22:14)
[2018-07-08] MEDS ORDERED: ONDANSETRON 4 MG/2 ML VIAL IVPUSH ONE (06:13)
[2018-07-08] MEDS ORDERED: ALBUTEROL SO4 2.5/IPRATROPIUM 0.5 INH SOL 3 ML VIAL.NEB. NEB ONE (06:13)
[2018-07-08 06:39] LABS: BASO % 0.1 % (0-2.0); EOS % 0.3 % (0-4.5); HEMATOCRIT 37.7 % (35.4-49); HEMOGLOBIN 12.7 GM/dL (11.7-16.9); MCH 31.4 pg (25.7-33.7); MCHC 33.7 g/dl (32.0-35.9); MEAN CELL VOLUME 93.3 fl (80-96); MEAN PLT VOLUME 8.9 fl (7.5-11.1); MONO % 4.3 % (3.8-10.2); NEUT % 92.3 % (42.8-82.8); PLATELET COUNT 207 K/MM3 (134-434); RBC 4.04 M/mm3 (4.00-5.60); RDW 14.6 % (11.9-15.9); WHITE BLOOD COUNT 13.2 K/mm3 (4.0-10.0)
[2018-07-08 06:56] LABS: ALBUMIN 1.8 g/dl (3.4-5.0); ALK PHOS 94 U/L (45-117); ANION GAP 13 MMOL/L (8-16); BILIRUBIN,TOTAL 0.3 mg/dL (0.2-1); BLOOD UREA NITROGEN 85 mg/dL (7-18); CALCIUM 7.7 mg/dL (8.5-10.1); CHLORIDE 105 mmol/L (98-107); CO2 18 mmol/L (21-32); CREATININE 5.1 mg/dL (0.55-1.3); GLUCOSE,RANDOM 253 mg/dL (74-106); MAGNESIUM 2.3 mg/dL (1.8-2.4); PHOSPHOROUS 7.2 mg/dL (2.5-4.9); POTASSIUM 5.2 mmol/L (3.5-5.1); SGOT/AST 75 U/L (15-37); SGPT/ALT 69 U/L (13-61); SODIUM 135 mmol/L (136-145); TOT PROT 5.1 g/dl (6.4-8.2)
[2018-07-08 07:07] LABS: ARTERIAL BLD GAS O2 SATURATION 95.9 % (95-98); ARTERIAL BLOOD GAS BASE EXCESS -10.2 meq/l (-2-2); ARTERIAL BLOOD GAS PCO2 41.9 mmHg (35-45); ARTERIAL BLOOD GAS PO2 99.4 mmHg (80-105); ARTERIAL BLOOD GAS pH 7.23 (7.35-7.45)
[2018-07-08 07:10] LABS: ALLENS TEST POSITIVE
[2018-07-08 07:51] LABS: CHOLESTEROL 54 mg/dL (50-200); HDL CHOLESTEROL 8 mg/dL (40-60); TRIGLYCERIDES 172 mg/dL (0-150)
[2018-07-08 08:02] LABS: INR 1.15 (0.83-1.09); PROTHROMBIN TIME (PATIENT) 13.6 SEC (9.7-13.0)
--- NOTE | 2018-07-08 08:41 | CONSULT ---
Consult Consult Specialty:: PULM/CCM Referred by:: Dr. Schmidt Reason for Consultation:: Shock - History of Present Illness Chief Complaint: POD#1 s/p Major surigical debridement of Raul's History of Present Illness: Mr. 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 The pt presents to ED yesterday (07/07) w/ perineal raul's. In the OR : extensive necrotic tissue in the scrotum, tunicae, perineum, & R perirectal area w/ necrotic tracts into the ischiorectal fossa. (The testicles were tucked under the remaining scrotal skin & tacked down). Initially the pt was extubated & brought to the PACU. PACU c/c/b asystolic cardiac arrest. ROSC achieved w/ ACLS. Pt self extubated following ROSC, was following all commands and able to converse and answer questions, thus, pt NOT cooled. Pt is now in the ICU Post- Op Day #1 s/p debridement of raul's w/ resp fail, acidosis, renal failure, and shock. - History Source History Provided By: Patient, Family Member, Medical Record Limitations to Obtaining History: Clinical Condition - Past Medical History Cardio/Vascular: Yes: CAD, HTN, Hyperlipdemia Pulmonary: Yes: Sleep Apnea Renal/: Yes: Renal Inusuff, BPH Musculoskeletal: Yes: Chronic low back pain, Osteoarthritis Endocrine: Yes: Diabetes Mellitus - Past Surgical History Past Surgical History: Yes: Cataract Removal (bilateral), Hernia Repair ( inguinal), Joint Replacement (bilateral hips), Stent (coronary x 3) - Alcohol/Substance Use Hx Alcohol Use: Yes (beer every day) History of Substance Use: reports: None (no illicits), Prescription (Percocet 5/ 325 up to tid) - Smoking History Smoking history: Current every day smoker Have you smoked in the past 12 months: Yes Aproximately how many cigarettes per day: 40 If you are a former smoker, when did you quit?: NOVEMBER 2011 - Social History ADL: Independent History of Recent Travel: No Home Medications - Allergies Allergies/Adverse Reactions: Allergies Allergy/AdvReac Type Severity Reaction Status Date / Time No Known Drug Allergies Allergy Verified 07/07/18 09:45 - Home Medications Home Medications: Ambulatory Orders Carvedilol [Coreg -] 25 mg PO BID 06/09/15 Cyanocobalamin (Vitamin B-12) [Vitamin B-12] 1,000 mcg PO DAILY 06/09/15 Folic Acid - 1 mg PO DAILY 06/09/15 Glyburide [Diabeta] 1.25 mg PO HS 06/09/15 Methyl-B12/l-Mefolate/B6 Phos [Metanx Tablet] 1 each PO BID 06/09/15 Multivit-Min/FA/Lycopen/Lutein [Centrum Silver Tablet] 1 each PO DAILY 06/09/15 Commiskey-3 Fatty Acids [Fish Oil] 1,200 mg PO BID 06/09/15 Rosuvastatin Calcium [Crestor] 40 mg PO DAILY 06/09/15 Silodosin [Rapaflo] 8 mg PO DAILY 06/09/15 Spironolactone [Aldactone] 25 mg PO DAILY 06/09/15 Glyburide [Diabeta -] 2.5 mg PO AM 07/07/18 Family Disease History - Family Disease History Family History: Unable to Obtain (Pt is AMS) Review of Systems Unable to obtain ROS, reason: Pt is AMS Physical Exam Vital Signs: Vital Signs Temperature 97.8 F 07/08/18 06:00 Pulse Rate 79 07/08/18 06:00 Respiratory Rate 22 H 07/08/18 06:00 Blood Pressure 121/67 07/08/18 06:00 O2 Sat by Pulse Oximetry (%) 97 07/08/18 08:24 Intake & Output 07/05/18 07/06/18 07/07/18 07/08/18 23:59 23:59 23:59 23:59 Intake Total 3100 1225 Output Total 1400 250 Balance 1700 975 Weight 133.81 kg 129.727 kg Constitutional: Yes: Ashen, Obese Eyes: Yes: WNL, Conjunctiva Clear, EOM Intact HENT: Yes: WNL, Atraumatic, Normocephalic Neck: Yes: WNL, Supple, Trachea Midline Cardiovascular: Yes: WNL, Regular Rate and Rhythm Respiratory: Yes: Diminished, Wheezes Gastrointestinal: Yes: Soft, Abdomen, Obese, Hypoactive Bowel Sounds ...Rectal Exam: Yes: Deferred Renal/: Yes: Oliguria Breast(s): Yes: WNL Musculoskeletal: Yes: WNL Extremities: Yes: WNL Edema: No Peripheral Pulses WNL: Yes Integumentary: Yes: Venous Stasis Changes Wound/Incision: Yes: Dressing Dry and Intact Neurological: Yes: Lethargy, Weakness ...Motor Strength: WNL Psychiatric: Yes: WNL Labs: ABG Results ABG pH 7.19 (7.35-7.45) L* 07/08/18 11:14 ABG pCO2 at Pt Temp 44.9 mmHg (35-45) 07/08/18 11:14 ABG pO2 at Pt Temp 93.0 mmHg (80-105) 07/08/18 11:14 ABG HCO3 16.5 mmol/L (22-27) L 07/08/18 11:14 ABG O2 Sat (Measured) 94.9 % (95-98) L 07/08/18 11:14 ABG O2 Content 18.0 % vol (15-22) 07/08/18 11:14 ABG Base Excess -11.2 meq/l (-2-2) L 07/08/18 11:14 CBC, BMP 07/08/18 05:30 Laboratory Results - last 24 hr 07/07/18 07/07/18 07/07/18 11:30 17:00 17:10 WBC 13.9 H RBC 4.28 Hgb 13.6 Hct 40.2 MCV 93.7 MCH 31.8 MCHC 34.0 RDW 14.0 Plt Count 205 MPV 9.1 Absolute Neuts (auto) 12.6 H Neutrophils % 90.9 H Neutrophils % (Manual) 60.0 Band Neutrophils % 25.0 Lymphocytes % 4.6 L Lymphocytes % (Manual) 5.0 L Monocytes % 4.1 Monocytes % (Manual) 5 Eosinophils % 0.1 Eosinophils % (Manual) 0.0 Basophils % 0.3 Basophils % (Manual) 0.0 Myelocytes % (Man) Promyelocytes % (Man) Blast Cells % (Manual) Nucleated RBC % 0 Metamyelocytes 4 H Platelet Estimate Adequate PT with INR INR Anticoagulation Therapy Puncture Site ABG pH ABG pCO2 at Pt Temp ABG pO2 at Pt Temp ABG HCO3 ABG O2 Sat (Measured) ABG O2 Content ABG Base Excess Dashawn Test O2 Delivery Device Oxygen Flow Rate Vent Mode Vent Rate Mechanical Rate Pressure Support Vent Sodium Potassium Chloride Carbon Dioxide Anion Gap BUN Creatinine Creat Clearance w eGFR POC Glucometer 224 Random Glucose Hemoglobin A1c % Lactic Acid 2.0 Calcium Phosphorus Magnesium Total Bilirubin AST ALT Alkaline Phosphatase Creatine Kinase Creatine Kinase Index CK-MB (CK-2) Troponin I Total Protein Albumin Triglycerides Cholesterol Total LDL Cholesterol HDL Cholesterol Urine Color Urine Appearance Urine pH Ur Specific [place] Urine Protein Urine Glucose (UA) Urine Ketones Urine Blood Urine Nitrite Urine Bilirubin Urine Urobilinogen Ur Leukocyte Esterase Urine WBC (Auto) Urine RBC (Auto) Urine Casts (Auto) U Epithel Cells (Auto) Urine Bacteria (Auto) 07/07/18 07/07/18 07/07/18 17:18 17:18 22:02 WBC RBC Hgb Hct MCV MCH MCHC RDW Plt Count MPV Absolute Neuts (auto) Neutrophils % Neutrophils % (Manual) Band Neutrophils % Lymphocytes % Lymphocytes % (Manual) Monocytes % Monocytes % (Manual) Eosinophils % Eosinophils % (Manual) Basophils % Basophils % (Manual) Myelocytes % (Man) Promyelocytes % (Man) Blast Cells % (Manual) Nucleated RBC % Metamyelocytes Platelet Estimate PT with INR INR Anticoagulation Therapy Puncture Site ABG pH ABG pCO2 at Pt Temp ABG pO2 at Pt Temp ABG HCO3 ABG O2 Sat (Measured) ABG O2 Content ABG Base Excess Dashawn Test O2 Delivery Device Oxygen Flow Rate Vent Mode Vent Rate Mechanical Rate Pressure Support Vent Sodium 133 L Potassium 5.1 Chloride 102 Carbon Dioxide 20 L Anion Gap 10 BUN 71 H Creatinine 4.8 H Creat Clearance w eGFR 12.05 POC Glucometer 224 Random Glucose 246 H Hemoglobin A1c % Lactic Acid 1.5 Calcium 8.4 L Phosphorus 5.8 H Magnesium 2.4 Total Bilirubin 0.2 AST 42 H ALT 42 Alkaline Phosphatase 80 Creatine Kinase Creatine Kinase Index CK-MB (CK-2) Troponin I Total Protein 5.5 L Albumin 2.1 L Triglycerides Cholesterol Total LDL Cholesterol HDL Cholesterol Urine Color Urine Appearance Urine pH Ur Specific [place] Urine Protein Urine Glucose (UA) Urine Ketones Urine Blood Urine Nitrite Urine Bilirubin Urine Urobilinogen Ur Leukocyte Esterase Urine WBC (Auto) Urine RBC (Auto) Urine Casts (Auto) U Epithel Cells (Auto) Urine Bacteria (Auto) 07/08/18 07/08/18 07/08/18 00:17 05:30 05:30 WBC RBC Hgb Hct MCV MCH MCHC RDW Plt Count MPV Absolute Neuts (auto) Neutrophils % Neutrophils % (Manual) Band Neutrophils % Lymphocytes % Lymphocytes % (Manual) Monocytes % Monocytes % (Manual) Eosinophils % Eosinophils % (Manual) Basophils % Basophils % (Manual) Myelocytes % (Man) Promyelocytes % (Man) Blast Cells % (Manual) Nucleated RBC % Metamyelocytes Platelet Estimate PT with INR INR Anticoagulation Therapy No Result Required. Puncture Site No Result Required. ABG pH 7.20 L ABG pCO2 at Pt Temp 41.5 ABG pO2 at Pt Temp 111 H ABG HCO3 15.6 L ABG O2 Sat (Measured) 96.9 ABG O2 Content 17.2 ABG Base Excess -11.7 L Dashawn Test No Result Required. O2 Delivery Device No Result Required. Oxygen Flow Rate No Result Required. Vent Mode No Result Required. Vent Rate No Result Required. Mechanical Rate No Result Required. Pressure Support Vent No Result Required. Sodium 135 L Potassium 5.2 H Chloride 105 Carbon Dioxide 18 L Anion Gap 13 BUN 85 H Creatinine 5.1 H Creat Clearance w eGFR 11.24 POC Glucometer Random Glucose 253 H Hemoglobin A1c % 8.5 H Lactic Acid Calcium 7.7 L Phosphorus 7.2 H Magnesium 2.3 Total Bilirubin 0.3 AST 75 H ALT 69 H Alkaline Phosphatase 94 Creatine Kinase 447 H Creatine Kinase Index 0.8 CK-MB (CK-2) 3.6 Troponin I 0.13 H Total Protein 5.1 L Albumin 1.8 L Triglycerides Cholesterol Total LDL Cholesterol HDL Cholesterol Urine Color Urine Appearance Urine pH Ur Specific [place] Urine Protein Urine Glucose (UA) Urine Ketones Urine Blood Urine Nitrite Urine Bilirubin Urine Urobilinogen Ur Leukocyte Esterase Urine WBC (Auto) Urine RBC (Auto) Urine Casts (Auto) U Epithel Cells (Auto) Urine Bacteria (Auto) 07/08/18 07/08/18 07/08/18 05:30 05:30 06:00 WBC 13.2 H RBC 4.04 Hgb 12.7 Hct 37.7 MCV 93.3 MCH 31.4 MCHC 33.7 RDW 14.6 Plt Count 207 MPV 8.9 Absolute Neuts (auto) 12.2 H Neutrophils % 92.3 H Neutrophils % (Manual) 90.0 H D Band Neutrophils % 4.0 Lymphocytes % 3.0 L D Lymphocytes % (Manual) 1.0 L D Monocytes % 4.3 Monocytes % (Manual) 3 L Eosinophils % 0.3 D Eosinophils % (Manual) 0.0 Basophils % 0.1 Basophils % (Manual) 0.0 Myelocytes % (Man) 0 Promyelocytes % (Man) 0 Blast Cells % (Manual) 0 Nucleated RBC % 0 Metamyelocytes 0 D Platelet Estimate Normal PT with INR INR Anticoagulation Therapy Puncture Site ABG pH ABG pCO2 at Pt Temp ABG pO2 at Pt Temp ABG HCO3 ABG O2 Sat (Measured) ABG O2 Content ABG Base Excess Dashawn Test O2 Delivery Device Oxygen Flow Rate Vent Mode Vent Rate Mechanical Rate Pressure Support Vent Sodium Potassium Chloride Carbon Dioxide Anion Gap BUN Creatinine Creat Clearance w eGFR POC Glucometer Random Glucose Hemoglobin A1c % Lactic Acid Calcium Phosphorus Magnesium Total Bilirubin AST ALT Alkaline Phosphatase Creatine Kinase Creatine Kinase Index CK-MB (CK-2) Troponin I Total Protein Albumin Triglycerides 172 H Cholesterol 54 Total LDL Cholesterol 16 HDL Cholesterol 8 L Urine Color Yellow Urine Appearance Cloudy Urine pH 5.0 Ur Specific [place] 1.017 Urine Protein 2+ Urine Glucose (UA) Negative Urine Ketones Trace H Urine Blood 3+ Urine Nitrite Negative Urine Bilirubin Negative Urine Urobilinogen 0.2 Ur Leukocyte Esterase Negative Urine WBC (Auto) 7 Urine RBC (Auto) 6 Urine Casts (Auto) 9 U Epithel Cells (Auto) 2.7 Urine Bacteria (Auto) 2.196 07/08/18 07/08/18 07/08/18 06:00 06:04 06:07 WBC RBC Hgb Hct MCV MCH MCHC RDW Plt Count MPV Absolute Neuts (auto) Neutrophils % Neutrophils % (Manual) Band Neutrophils % Lymphocytes % Lymphocytes % (Manual) Monocytes % Monocytes % (Manual) Eosinophils % Eosinophils % (Manual) Basophils % Basophils % (Manual) Myelocytes % (Man) Promyelocytes % (Man) Blast Cells % (Manual) Nucleated RBC % Metamyelocytes Platelet Estimate PT with INR INR Anticoagulation Therapy Puncture Site Right radial ABG pH 7.23 L ABG pCO2 at Pt Temp 41.9 ABG pO2 at Pt Temp 99.4 ABG HCO3 16.7 L ABG O2 Sat (Measured) 95.9 ABG O2 Content 19.4 ABG Base Excess -10.2 L Dashawn Test Positive O2 Delivery Device Vent mask Oxygen Flow Rate Yes Vent Mode Vent Rate Mechanical Rate Pressure Support Vent Sodium Cancelled Potassium Cancelled Chloride Cancelled Carbon Dioxide Cancelled Anion Gap Cancelled BUN Cancelled Creatinine Cancelled Creat Clearance w eGFR Cancelled POC Glucometer 260 Random Glucose Cancelled Hemoglobin A1c % Lactic Acid Calcium Cancelled Phosphorus Cancelled Magnesium Cancelled Total Bilirubin Cancelled AST Cancelled ALT Cancelled Alkaline Phosphatase Cancelled Creatine Kinase Creatine Kinase Index CK-MB (CK-2) Troponin I Total Protein Cancelled Albumin Cancelled Triglycerides Cholesterol Total LDL Cholesterol HDL Cholesterol Urine Color Urine Appearance Urine pH Ur Specific [place] Urine Protein Urine Glucose (UA) Urine Ketones Urine Blood Urine Nitrite Urine Bilirubin Urine Urobilinogen Ur Leukocyte Esterase Urine WBC (Auto) Urine RBC (Auto) Urine Casts (Auto) U Epithel Cells (Auto) Urine Bacteria (Auto) 07/08/18 07/08/18 07/08/18 06:30 11:14 11:40 WBC RBC Hgb Hct MCV MCH MCHC RDW Plt Count MPV Absolute Neuts (auto) Neutrophils % Neutrophils % (Manual) Band Neutrophils % Lymphocytes % Lymphocytes % (Manual) Monocytes % Monocytes % (Manual) Eosinophils % Eosinophils % (Manual) Basophils % Basophils % (Manual) Myelocytes % (Man) Promyelocytes % (Man) Blast Cells % (Manual) Nucleated RBC % Metamyelocytes Platelet Estimate PT with INR 13.60 H INR 1.15 H Anticoagulation Therapy Puncture Site Right radial ABG pH 7.19 L* ABG pCO2 at Pt Temp 44.9 ABG pO2 at Pt Temp 93.0 ABG HCO3 16.5 L ABG O2 Sat (Measured) 94.9 L ABG O2 Content 18.0 ABG Base Excess -11.2 L Dashawn Test Positive O2 Delivery Device Oxygen Flow Rate Yes Vent Mode Vent Rate Mechanical Rate Pressure Support Vent Sodium Potassium Chloride Carbon Dioxide Anion Gap BUN Creatinine Creat Clearance w eGFR POC Glucometer Random Glucose Hemoglobin A1c % Lactic Acid 1.0 Calcium Phosphorus Magnesium Total Bilirubin AST ALT Alkaline Phosphatase Creatine Kinase Creatine Kinase Index CK-MB (CK-2) Troponin I Total Protein Albumin Triglycerides Cholesterol Total LDL Cholesterol HDL Cholesterol Urine Color Urine Appearance Urine pH Ur Specific [place] Urine Protein Urine Glucose (UA) Urine Ketones Urine Blood Urine Nitrite Urine Bilirubin Urine Urobilinogen Ur Leukocyte Esterase Urine WBC (Auto) Urine RBC (Auto) Urine Casts (Auto) U Epithel Cells (Auto) Urine Bacteria (Auto) Microbiology 07/07/18 09:30 Blood - Peripheral Venous Blood Culture - Preliminary NO GROWTH OBTAINED AFTER 24 HOURS, INCUBATION TO CONTINUE FOR 4 DAYS. 07/07/18 09:20 Blood - Peripheral Venous Blood Culture - Preliminary NO GROWTH OBTAINED AFTER 24 HOURS, INCUBATION TO CONTINUE FOR 4 DAYS. Imaging - Results Chest X-ray: Report Reviewed (07/08: Since the prior study of 07/07/2018, left jugular line has been inserted and the tip is in the left innominate heading towards the SVC. Again noted is a large heart, unfolded aorta and there are some prominent left perihilar markings. Correlation recommended.) Cat Scan: Report Reviewed ([facility] 06/13/2015: Diffuse aortoiliac, femoro- popliteal and infrapopliteal atherosclerotic disease, as described above. - Occluded left LUKE with reconstitution of the left MEDICAL INTERN which in turns demonstrate 50-70% stenosis. Three-vessel runoff seen to the left foot. - Severe atherosclerotic disease with stenosis reaching at least 70-90% in the right LUKE and MEDICAL INTERN in addition to at least 50% stenosis in the right SFA and popliteal artery associated with occluded right CADY and 2 vessel runoff to the right foot provided by the [employer] and PA. Bilateral adrenal hypertrophy hyperplasia. Moderate bilateral perirenal fat stranding is nonspecific and can be seen in the setting of medical renal disease. Small urinary bladder diverticulum. Adequate evaluation of the pelvis including bladder and prostate is limited due to streak artifacts from hip prosthesis. Mild descending and sigmoid colon diverticulosis. 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 transplanted heart: [place] heart Associated angina: without angina Qualified Code(s): I25.10 - Atherosclerotic heart disease of [place] coronary artery without angina pectoris (6) Peripheral arterial occlusive disease Code(s): I77.9 - DISORDER OF ARTERIES AND ARTERIOLES, UNSPECIFIED (7) Tobacco dependence due to cigarettes Code(s): F17.210 - NICOTINE DEPENDENCE, CIGARETTES, UNCOMPLICATED Assessment/Plan ASSESSMENT/PLAN: This is a 73 y/o man w/ MO, DM, HTN, HL, CAD, CHF, CKD, peripheral arterial occlusive dz, & BPH. The pt is now in the ICU Post-Op Day # 1 s/p debridement of raul's w/ resp fail, acidosis, renal failure, and shock. PULM: Hyper Cap Resp Fail Supp FiO2 Nebs Bi-Level prn Low threshold to re-intubate ID/: s/p debridement of extensive [place] Abx F/u Clxrs Wound care a/p Surgery Consider a diversion colostomy while the wound cools off CARDS: Shock m/l Septic Relative hypotension D/c All anti-HTN Meds CVC A-Line IVFs for a CVP of 12 Press for a MAP of 65 Agressive IVFs Trend LA RENAL: A on C renal Fail in the setting of severe sepsis Strict I's & O's Monitor whiting output. Trend BUN/Cr Replete e-lytes prn HCO3 gtt ENDO: Diabetes/type II DM FS SSI F/E/N: Protein Calorie Nutrient Deficient NPO PPX: SQH SCD PPI FULL CODE DGL, ACNP-BC [facility] PULM/CCM [id number] Critical Care Total Critical Care Time (in minutes): 60 Critical Care Statement: The care of this patient involved high complexity decision making to prevent further life threatening deterioration of the patient 's condition and/or to evaluate & treat vital organ system(s) failure or risk of failure.
--- NOTE | 2018-07-08 08:57 | PN ---
Physical Exam: SUBJECTIVE: Patient seen and examined in the icu. 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 on a venti mask. HEAD: Normal with no signs of trauma. EYES: Pupils equal, round and reactive to light, extraocular movements intact, sclera anicteric, conjunctiva clear. No lid lag. EARS, NOSE, THROAT: Ears normal, nares patent, oropharynx clear without exudates. moist mucous membranes. NECK: Normal range of motion, supple without lymphadenopathy, JVD, or masses. LUNGS: mild wheezing bilaterally HEART: Regular rate and rhythm, hypotensive on monitor ABDOMEN: obese soft abdomen MUSCULOSKELETAL: Normal range of motion at all joints. No bony deformities or tenderness. No CVA tenderness. UPPER EXTREMITIES: No peripheral edema. LOWER EXTREMITIES: trace peripheral edema. NEUROLOGICAL: Normal speech PSYCHIATRIC: lethargic SKIN:s/p debridement of scrotal necrotic wound - dressing intact. some sero sang. Laboratory Results - last 24 hr 07/07/18 07/07/18 07/07/18 09:30 09:30 09:30 WBC 15.5 H RBC 4.75 Hgb 15.3 Hct 44.1 MCV 92.9 MCH 32.1 MCHC 34.6 RDW 14.4 Plt Count 228 MPV 9.0 Absolute Neuts (auto) 14.0 H Neutrophils % 89.9 H D Neutrophils % (Manual) Band Neutrophils % Lymphocytes % 3.9 L D Lymphocytes % (Manual) Monocytes % 5.8 Monocytes % (Manual) Eosinophils % 0.1 D Eosinophils % (Manual) Basophils % 0.3 Basophils % (Manual) Nucleated RBC % 0 Metamyelocytes Platelet Estimate ESR PT with INR 13.30 H INR 1.13 H PTT (Actin FS) 32.2 Anticoagulation Therapy Puncture Site ABG pH ABG pCO2 at Pt Temp ABG pO2 at Pt Temp ABG HCO3 ABG O2 Sat (Measured) ABG O2 Content ABG Base Excess Dashawn Test VBG pH 7.22 L POC VBG pCO2 50.2 POC VBG pO2 30.8 VBG HCO3 19.7 L VBG O2 Sat (Elizabeth) 47.2 L VBG Base Excess -8.1 L O2 Delivery Device Oxygen Flow Rate Vent Mode Vent Rate Mechanical Rate Pressure Support Vent Sodium Potassium Chloride Carbon Dioxide Anion Gap BUN Creatinine Creat Clearance w eGFR POC Glucometer Random Glucose Hemoglobin A1c % Lactic Acid Calcium Phosphorus Magnesium Total Bilirubin AST ALT Alkaline Phosphatase Creatine Kinase Creatine Kinase Index CK-MB (CK-2) Troponin I C-Reactive Protein Total Protein Albumin Triglycerides Cholesterol Total LDL Cholesterol HDL Cholesterol Blood Type Antibody Screen 07/07/18 07/07/18 07/07/18 09:30 09:30 09:30 WBC RBC Hgb Hct MCV MCH MCHC RDW Plt Count MPV Absolute Neuts (auto) Neutrophils % Neutrophils % (Manual) Band Neutrophils % Lymphocytes % Lymphocytes % (Manual) Monocytes % Monocytes % (Manual) Eosinophils % Eosinophils % (Manual) Basophils % Basophils % (Manual) Nucleated RBC % Metamyelocytes Platelet Estimate ESR 63 H PT with INR INR PTT (Actin FS) Anticoagulation Therapy Puncture Site ABG pH ABG pCO2 at Pt Temp ABG pO2 at Pt Temp ABG HCO3 ABG O2 Sat (Measured) ABG O2 Content ABG Base Excess Dashawn Test VBG pH POC VBG pCO2 POC VBG pO2 VBG HCO3 VBG O2 Sat (Elizabeth) VBG Base Excess O2 Delivery Device Oxygen Flow Rate Vent Mode Vent Rate Mechanical Rate Pressure Support Vent Sodium 133 L Potassium 5.3 H Chloride 100 Carbon Dioxide 21 Anion Gap 12 BUN 75 H Creatinine 5.0 H Creat Clearance w eGFR 11.50 POC Glucometer Random Glucose 273 H Hemoglobin A1c % Lactic Acid Calcium 8.9 Phosphorus Magnesium Total Bilirubin 0.4 AST 55 H ALT 53 Alkaline Phosphatase 91 Creatine Kinase Creatine Kinase Index CK-MB (CK-2) Troponin I 0.04 C-Reactive Protein 44.6 H Total Protein 6.2 L Albumin 2.5 L Triglycerides Cholesterol Total LDL Cholesterol HDL Cholesterol Blood Type Antibody Screen 07/07/18 07/07/18 07/07/18 09:30 09:39 10:54 WBC RBC Hgb Hct MCV MCH MCHC RDW Plt Count MPV Absolute Neuts (auto) Neutrophils % Neutrophils % (Manual) Band Neutrophils % Lymphocytes % Lymphocytes % (Manual) Monocytes % Monocytes % (Manual) Eosinophils % Eosinophils % (Manual) Basophils % Basophils % (Manual) Nucleated RBC % Metamyelocytes Platelet Estimate ESR PT with INR INR PTT (Actin FS) Anticoagulation Therapy Puncture Site ABG pH ABG pCO2 at Pt Temp ABG pO2 at Pt Temp ABG HCO3 ABG O2 Sat (Measured) ABG O2 Content ABG Base Excess Dashawn Test VBG pH POC VBG pCO2 POC VBG pO2 VBG HCO3 VBG O2 Sat (Elizabeth) VBG Base Excess O2 Delivery Device Oxygen Flow Rate Vent Mode Vent Rate Mechanical Rate Pressure Support Vent Sodium Potassium Chloride Carbon Dioxide Anion Gap BUN Creatinine Creat Clearance w eGFR POC Glucometer 280 Random Glucose Hemoglobin A1c % Lactic Acid 3.4 H* Calcium Phosphorus Magnesium Total Bilirubin AST ALT Alkaline Phosphatase Creatine Kinase Creatine Kinase Index CK-MB (CK-2) Troponin I C-Reactive Protein Total Protein Albumin Triglycerides Cholesterol Total LDL Cholesterol HDL Cholesterol Blood Type O POSITIVE Antibody Screen Negative 07/07/18 07/07/18 07/07/18 11:30 17:00 17:10 WBC 13.9 H RBC 4.28 Hgb 13.6 Hct 40.2 MCV 93.7 MCH 31.8 MCHC 34.0 RDW 14.0 Plt Count 205 MPV 9.1 Absolute Neuts (auto) 12.6 H Neutrophils % 90.9 H Neutrophils % (Manual) 60.0 Band Neutrophils % 25.0 Lymphocytes % 4.6 L Lymphocytes % (Manual) 5.0 L Monocytes % 4.1 Monocytes % (Manual) 5 Eosinophils % 0.1 Eosinophils % (Manual) 0.0 Basophils % 0.3 Basophils % (Manual) 0.0 Nucleated RBC % 0 Metamyelocytes 4 H Platelet Estimate Adequate ESR PT with INR INR PTT (Actin FS) Anticoagulation Therapy Puncture Site ABG pH ABG pCO2 at Pt Temp ABG pO2 at Pt Temp ABG HCO3 ABG O2 Sat (Measured) ABG O2 Content ABG Base Excess Dashawn Test VBG pH POC VBG pCO2 POC VBG pO2 VBG HCO3 VBG O2 Sat (Elizabeth) VBG Base Excess O2 Delivery Device Oxygen Flow Rate Vent Mode Vent Rate Mechanical Rate Pressure Support Vent Sodium Potassium Chloride Carbon Dioxide Anion Gap BUN Creatinine Creat Clearance w eGFR POC Glucometer 224 Random Glucose Hemoglobin A1c % Lactic Acid 2.0 Calcium Phosphorus Magnesium Total Bilirubin AST ALT Alkaline Phosphatase Creatine Kinase Creatine Kinase Index CK-MB (CK-2) Troponin I C-Reactive Protein Total Protein Albumin Triglycerides Cholesterol Total LDL Cholesterol HDL Cholesterol Blood Type Antibody Screen 03/07/07/18 07/07/18 17:18 17:18 22:02 WBC RBC Hgb Hct MCV MCH MCHC RDW Plt Count MPV Absolute Neuts (auto) Neutrophils % Neutrophils % (Manual) Band Neutrophils % Lymphocytes % Lymphocytes % (Manual) Monocytes % Monocytes % (Manual) Eosinophils % Eosinophils % (Manual) Basophils % Basophils % (Manual) Nucleated RBC % Metamyelocytes Platelet Estimate ESR PT with INR INR PTT (Actin FS) Anticoagulation Therapy Puncture Site ABG pH ABG pCO2 at Pt Temp ABG pO2 at Pt Temp ABG HCO3 ABG O2 Sat (Measured) ABG O2 Content ABG Base Excess Dashawn Test VBG pH POC VBG pCO2 POC VBG pO2 VBG HCO3 VBG O2 Sat (Elizabeth) VBG Base Excess O2 Delivery Device Oxygen Flow Rate Vent Mode Vent Rate Mechanical Rate Pressure Support Vent Sodium 133 L Potassium 5.1 Chloride 102 Carbon Dioxide 20 L Anion Gap 10 BUN 71 H Creatinine 4.8 H Creat Clearance w eGFR 12.05 POC Glucometer 224 Random Glucose 246 H Hemoglobin A1c % Lactic Acid 1.5 Calcium 8.4 L Phosphorus 5.8 H Magnesium 2.4 Total Bilirubin 0.2 AST 42 H ALT 42 Alkaline Phosphatase 80 Creatine Kinase Creatine Kinase Index CK-MB (CK-2) Troponin I C-Reactive Protein Total Protein 5.5 L Albumin 2.1 L Triglycerides Cholesterol Total LDL Cholesterol HDL Cholesterol Blood Type Antibody Screen 07/08/18 07/08/18 07/08/18 00:17 05:30 05:30 WBC RBC Hgb Hct MCV MCH MCHC RDW Plt Count MPV Absolute Neuts (auto) Neutrophils % Neutrophils % (Manual) Band Neutrophils % Lymphocytes % Lymphocytes % (Manual) Monocytes % Monocytes % (Manual) Eosinophils % Eosinophils % (Manual) Basophils % Basophils % (Manual) Nucleated RBC % Metamyelocytes Platelet Estimate ESR PT with INR INR PTT (Actin FS) Anticoagulation Therapy No Result Required. Puncture Site No Result Required. ABG pH 7.20 L ABG pCO2 at Pt Temp 41.5 ABG pO2 at Pt Temp 111 H ABG HCO3 15.6 L ABG O2 Sat (Measured) 96.9 ABG O2 Content 17.2 ABG Base Excess -11.7 L Dashawn Test No Result Required. VBG pH POC VBG pCO2 POC VBG pO2 VBG HCO3 VBG O2 Sat (Elizabeth) VBG Base Excess O2 Delivery Device No Result Required. Oxygen Flow Rate No Result Required. Vent Mode No Result Required. Vent Rate No Result Required. Mechanical Rate No Result Required. Pressure Support Vent No Result Required. Sodium 135 L Potassium 5.2 H Chloride 105 Carbon Dioxide 18 L Anion Gap 13 BUN 85 H Creatinine 5.1 H Creat Clearance w eGFR 11.24 POC Glucometer Random Glucose 253 H Hemoglobin A1c % 8.5 H Lactic Acid Calcium 7.7 L Phosphorus 7.2 H Magnesium 2.3 Total Bilirubin 0.3 AST 75 H ALT 69 H Alkaline Phosphatase 94 Creatine Kinase 447 H Creatine Kinase Index 0.8 CK-MB (CK-2) 3.6 Troponin I 0.13 H C-Reactive Protein Total Protein 5.1 L Albumin 1.8 L Triglycerides Cholesterol Total LDL Cholesterol HDL Cholesterol Blood Type Antibody Screen 07/08/18 07/08/18 07/08/18 05:30 05:30 06:00 WBC 13.2 H RBC 4.04 Hgb 12.7 Hct 37.7 MCV 93.3 MCH 31.4 MCHC 33.7 RDW 14.6 Plt Count 207 MPV 8.9 Absolute Neuts (auto) 12.2 H Neutrophils % 92.3 H Neutrophils % (Manual) Band Neutrophils % Lymphocytes % 3.0 L D Lymphocytes % (Manual) Monocytes % 4.3 Monocytes % (Manual) Eosinophils % 0.3 D Eosinophils % (Manual) Basophils % 0.1 Basophils % (Manual) Nucleated RBC % 0 Metamyelocytes Platelet Estimate ESR PT with INR INR PTT (Actin FS) Anticoagulation Therapy Puncture Site Right radial ABG pH 7.23 L ABG pCO2 at Pt Temp 41.9 ABG pO2 at Pt Temp 99.4 ABG HCO3 16.7 L ABG O2 Sat (Measured) 95.9 ABG O2 Content 19.4 ABG Base Excess -10.2 L Dashawn Test Positive VBG pH POC VBG pCO2 POC VBG pO2 VBG HCO3 VBG O2 Sat (Elizabeth) VBG Base Excess O2 Delivery Device Vent mask Oxygen Flow Rate Yes Vent Mode Vent Rate Mechanical Rate Pressure Support Vent Sodium Potassium Chloride Carbon Dioxide Anion Gap BUN Creatinine Creat Clearance w eGFR POC Glucometer Random Glucose Hemoglobin A1c % Lactic Acid Calcium Phosphorus Magnesium Total Bilirubin AST ALT Alkaline Phosphatase Creatine Kinase Creatine Kinase Index CK-MB (CK-2) Troponin I C-Reactive Protein Total Protein Albumin Triglycerides 172 H Cholesterol 54 Total LDL Cholesterol 16 HDL Cholesterol 8 L Blood Type Antibody Screen 07/08/18 07/08/18 07/08/18 06:04 06:07 06:30 WBC RBC Hgb Hct MCV MCH MCHC RDW Plt Count MPV Absolute Neuts (auto) Neutrophils % Neutrophils % (Manual) Band Neutrophils % Lymphocytes % Lymphocytes % (Manual) Monocytes % Monocytes % (Manual) Eosinophils % Eosinophils % (Manual) Basophils % Basophils % (Manual) Nucleated RBC % Metamyelocytes Platelet Estimate ESR PT with INR 13.60 H INR 1.15 H PTT (Actin FS) Anticoagulation Therapy Puncture Site ABG pH ABG pCO2 at Pt Temp ABG pO2 at Pt Temp ABG HCO3 ABG O2 Sat (Measured) ABG O2 Content ABG Base Excess Dashawn Test VBG pH POC VBG pCO2 POC VBG pO2 VBG HCO3 VBG O2 Sat (Elizabeth) VBG Base Excess O2 Delivery Device Oxygen Flow Rate Vent Mode Vent Rate Mechanical Rate Pressure Support Vent Sodium Cancelled Potassium Cancelled Chloride Cancelled Carbon Dioxide Cancelled Anion Gap Cancelled BUN Cancelled Creatinine Cancelled Creat Clearance w eGFR Cancelled POC Glucometer 260 Random Glucose Cancelled Hemoglobin A1c % Lactic Acid Calcium Cancelled Phosphorus Cancelled Magnesium Cancelled Total Bilirubin Cancelled AST Cancelled ALT Cancelled Alkaline Phosphatase Cancelled Creatine Kinase Creatine Kinase Index CK-MB (CK-2) Troponin I C-Reactive Protein Total Protein Cancelled Albumin Cancelled Triglycerides Cholesterol Total LDL Cholesterol HDL Cholesterol Blood Type Antibody Screen Active Medications Generic Name Dose Route Start Last Admin Trade Name Freq PRN Reason Stop Dose Admin Acetaminophen 650 mg 07/07/18 20:35 Tylenol - PO Q6H PRN Pain Level 4-10 Albuterol/Ipratropium 1 amp 07/08/18 08:54 Duoneb - NEB Q4H PRN SHORTNESS OF BREATH Carvedilol 25 mg 07/07/18 22:00 07/08/18 04:45 Coreg - PO Not Given BID MIMI Chlorhexidine Gluconate 1 applic 07/07/18 22:00 07/08/18 00:00 Hibiclens For Decolonization - TP 1 applic HS MIMI Administration Fentanyl 50 mcg 07/07/18 18:54 Sublimaze Injection - IVPUSH Q5M PRN PAIN-PACU ORDER X 4 DOSES ONLY Folic Acid 1 mg 07/08/18 10:00 Folic Acid - PO DAILY [facility] Heparin Sodium (Porcine) 5,000 unit 07/07/18 22:00 07/08/18 04:59 Heparin - SQ 5,000 unit TID MIMI Administration Clindamycin Phosphate 600 mg in 50 mls @ 100 mls/hr 07/08/18 02:00 07/08/18 04:50 Cleocin 600 Mg Premix Ivpb - IVPB 100 mls/hr Q8H-IV MIMI Administration Protocol Sodium Chloride 1,000 mls @ 125 mls/hr 07/07/18 20:35 07/08/18 00:28 Normal Saline - IV 125 mls/hr ASDIR MIMI Administration Piperacillin Sod/Tazobactam 50 mls @ 100 mls/hr 07/07/18 21:00 07/08/18 04:51 Sod 2.25 gm/ Dextrose IVPB 100 mls/hr Q6H-IV MIMI Administration Protocol Insulin Aspart 1 vial 07/07/18 22:00 07/08/18 06:15 Novolog Vial Sliding Scale - SQ 6 unit ACHS MIMI Administration Protocol Morphine Sulfate 4 mg 07/07/18 20:35 Morphine Sulfate IVPUSH Q4H PRN Pain Level 7 - 10 BREAKTHROUGH Mupirocin 1 applic 07/07/18 22:00 07/08/18 04:44 Bactroban Ointment (For Decolonization) - NS 07/12/18 21:59 Not Given BID [facility] Nicotine 14 mg 07/08/18 10:00 Nicoderm Patch - TD DAILY [facility] Oxycodone HCl 5 mg 07/07/18 20:35 Roxicodone - PO Q6H PRN Pain Level 7 - 10 BREAKTHROUGH Rosuvastatin Calcium 40 mg 07/07/18 22:00 07/08/18 04:45 Crestor - PO Not Given HS [facility] Thiamine HCl 100 mg 07/08/18 10:00 Vitamin B1 - PO DAILY [facility] ASSESSMENT/PLAN: Patient is a 73 year old male with a significant past medical history of Ischemic right first toe with peripheral arterial occlusive disease, Stage 3 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 He comes to the ED 07/07/18 with c/o of progressive pain and tenderness of his right scrotal region and left buttock region and swelling that started 4 days ago that worsened yesterday. The wound area started as a boil on this left buttocks yesterday and he noted to gradually decrease in size and today noted some burning pain and bruising and dark wound on his right scrotal sac. He had chills and diaphoresis at home. In the ER labs revealed: fever of 100.8, leukocytosis 15, dyspnea, PIYUSH and hypotension. He was given Clindamycin, Zosyn and Vancomycin with fluid boluses. Blood cultures drawn. 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 s/p debridement of [place] gangrene and necrotizing infection of perineum, scrotom BP low stable severe sepsis secondary to necrotic tissue of right scrotum with weeping and foul odor. given clindamycin, vanco and zosyn. in the ED. Now on Zosyn and clindamycin. blood cultures pending. tissue and wound cultured. ID following Monitor urine output, has 18 f whiting catheter Renal Stage 3 CKD, baseline creat 1.1, currently bun/creat 85/5.1 PIYUSH in the setting of severe sepsis and scrotal abscess/infection NS @ 125. Monitor whiting output. renal following Endocrine: Diabetes/type II DM novolog ss, bgms Card: Hypertension, now hypotensive severe sepsis fluid bolus lactic acid 3.4 repeat lactic acid ICU monitoring hold cardiac meds if systolic <100, heart rate <60 CAD, history of stents, Hyperlipidemia continue statin therapy lipid panel reviewed cardiology following fen npo monitor electrolytes prophy full code Visit type - Emergency Visit Emergency Visit: Yes ED Registration Date: 07/07/18 Care time: The patient presented to the Emergency Department on the above date and was hospitalized for further evaluation of their emergent condition. - New Patient This patient is new to me today: No - Critical Care Critical Care patient: Yes Total Critical Care Time (in minutes): 55 Critical Care Statement: The care of this patient involved high complexity decision making to prevent further life threatening deterioration of the patient 's condition and/or to evaluate & treat vital organ system(s) failure or risk of failure.
[2018-07-08] MEDS ORDERED: ALBUTEROL SO4 0.083% IH SOL 2.5 MG/3 ML VIAL.NEB. NEB ONE (09:02)
[2018-07-08] MEDS ORDERED: ALBUTEROL SO4 0.083% IH SOL 2.5 MG/3 ML VIAL.NEB. NEB STA (09:02)
[2018-07-08 09:25] LABS: EPI CELLS 2.7 /HPF (0-5); URINE APPEARANCE CLOUDY; URINE BACTERIA 2.196 /hpf (NEGATIVE); URINE BILIRUBIN NEGATIVE (<2.0 mg/dL); URINE CASTS 9 /hpf (0-8); URINE COLOR YELLOW; URINE GLUCOSE (UA) NEGATIVE (NEGATIVE); URINE KETONE TRACE (NEGATIVE); URINE LEUK ESTERASE NEGATIVE (NEGATIVE); URINE NITRITE NEGATIVE (NEGATIVE); URINE PROTEIN 2+ (NEGATIVE); URINE RBC 6 /hpf (0-4); URINE UROBILINOGEN 0.2 mg/dL (0.2-1.0); URINE WBC 7 /hpf (0-5)
--- NOTE | 2018-07-08 09:51 | PN ---
Progress Note (short form) - Note Progress Note: Post op day#1.S/P I&D with debredment of testes and perirectal abscess under spinal anesthesia uneventfful.Patient was coded in PACU but is doing well now and has self extubated.P85,BP118/52 and Spo2 97% on O2 4L NC.Will f/u tomorrow.
[2018-07-08] MEDS ORDERED: THIAMINE HCL 100 MG TABLET (FP) PO SCH (10:00)
[2018-07-08] MEDS ORDERED: NICOTINE 14 MG/24 HOURS TOPICAL PATCH TD SCH (10:00)
[2018-07-08] MEDS ORDERED: FOLIC ACID 1 MG TABLET (FP) PO SCH (10:00)
--- NOTE | 2018-07-08 10:41 | PROC ---
Central Line Insertion Indication: CVP Monitoring, Sepsis, Vasopressor Risks and Benefits Explained: Yes Consent on Chart: Yes Central Line: Triple Lumen Catheter Anesthesia: 1% Lidocaine Sterile Technique: Yes Ultrasound Guided Assistance: Yes Position: Left Internal Jugular Post Insertion: Yes: Bilateral Breath Sounds, Bilateral Chest Expansion, Chest X-Ray Ordered Sterile Dressing Applied: Yes
[2018-07-08] MEDS ORDERED: LACTATED RINGERS SOLUTION 1,000 ML/1,000 ML INFUS.BAG IV STA (11:13)
--- NOTE | 2018-07-08 11:13 | PROC ---
Procedure Note Procedure: [facility] ICU A-LINE INSERT NOTE: INDICATION: Imminent hemodynamic instability in the setting of Severe Sepsis & required frequent ABGs. CONSENT: Consent was obtained from the patient, signed, documented, & placed in the chart. PROCEDURE: I did US the pt's R radial artery & I did appreciate the artery to be pulsating, healthy, patent, & intact. I did US the pt's R ulnar artery & I did appreciate that artery to be pulsating, healthy, patent, & intact. I performed an Dashawn Test and after > 3min of complete R Radial artery occlusion the pt remained w/ good Cap-refill in all 5 R hand digits. The R wrist was secured in position, prepped, & draped in the usual sterile fashion. STOP TIME OUT I did perform a Time Out w/ the pt's nurse at the bedside. The site was anesthetized w/ 3cc of 1% Lidocaine. A 20G needle was inserted into the R radial artery on the first attempt w/ pulsating bright red blood return. I then threaded a wire through the needle into the pt's R radial artery and I removed the needle. A 20G catheter was inserted over the wire & into the artery via the Seldinger technique. I then removed the wire and appreciated the wire to be intact & whole. The arterial line was connected & transduced. I did appreciate a good tracing & an arterial waveform w/ a dicrotic notch was confirmed. The catheter was secured in place w/ 2.0 Nylon sutures X2. I did apply a Bio-patch to the site where the catheter breeches through the pt's skin. I did apply a sterile dressing to the entire site. Post procedure re-eval confirmed a pink warm R hand cap-refill < 2sec in all 5 R hand digits. EBL < 5cc. Pt tolerated the procedure well. I have no complications to report. Armando Salas, ACNP-BC [id number] [facility] PUL[facility] / CCM
[2018-07-08 11:21] LABS: ARTERIAL BLD GAS O2 SATURATION 94.9 % (95-98); ARTERIAL BLOOD GAS BASE EXCESS -11.2 meq/l (-2-2); ARTERIAL BLOOD GAS PCO2 44.9 mmHg (35-45)
[2018-07-08 11:26] LABS: ALLENS TEST POSITIVE
[2018-07-08 11:28] LABS: ARTERIAL BLOOD GAS pH 7.19 (7.35-7.45)
[2018-07-08 11:36] VITALS: BMI 37.7
[2018-07-08] MEDS: FOLIC ACID 1 MG TABLET (FP) PO SCH (11:41)
[2018-07-08] MEDS: THIAMINE HCL 100 MG TABLET (FP) PO SCH (11:41)
[2018-07-08] MEDS ORDERED: FLU VACCINE QUAD 60 MCG/0.5 ML (MDV 18-19) IM ONE (12:00)
[2018-07-08] MEDS: NICOTINE 14 MG/24 HOURS TOPICAL PATCH TD SCH (12:07)
[2018-07-08 12:51] LABS: PLATELET ESTIMATE NORMAL
[2018-07-08] MEDS ORDERED: SODIUM CHLORIDE 0.9% 500 ML INFUS.BAG IV STA (13:23)
[2018-07-08 14:22] LABS: ARTERIAL BLD GAS O2 SATURATION 97.7 % (95-98); ARTERIAL BLOOD GAS BASE EXCESS -10.3 meq/l (-2-2); ARTERIAL BLOOD GAS PCO2 38.5 mmHg (35-45); ARTERIAL BLOOD GAS PO2 126 mmHg (80-105); ARTERIAL BLOOD GAS pH 7.24 (7.35-7.45)
[2018-07-08 14:24] LABS: ALLENS TEST POSITIVE
--- NOTE | 2018-07-08 14:51 | PN ---
Progress Note, Physician History of Present Illness: Pt seen and examined at bedside. He is in the ICU. He had a cardiac arrest yesterday. He is awake and does respond. - Current Medication List Current Medications: Active Medications Acetaminophen (Tylenol -) 650 mg PO Q6H PRN PRN Reason: Pain Level 4-10 Albuterol/Ipratropium (Duoneb -) 1 amp NEB Q4H PRN PRN Reason: SHORTNESS OF BREATH Carvedilol (Coreg -) 25 mg PO BID [facility] Last Admin: 07/08/18 11:40 Dose: Not Given Chlorhexidine Gluconate (Hibiclens For Decolonization -) 1 applic TP HS [facility] Last Admin: 07/08/18 00:00 Dose: 1 applic Folic Acid (Folic Acid -) 1 mg PO DAILY [facility] Last Admin: 07/08/18 11:41 Dose: Not Given Heparin Sodium (Porcine) (Heparin -) 5,000 unit SQ TID [facility] Last Admin: 07/08/18 13:58 Dose: 5,000 unit Clindamycin Phosphate (Cleocin 600 Mg Premix Ivpb -) 600 mg in 50 mls @ 100 mls /hr IVPB Q8H-IV [facility]; Protocol Last Admin: 07/08/18 09:52 Dose: 100 mls/hr Sodium Chloride (Normal Saline -) 1,000 mls @ 125 mls/hr IV ASDIR [facility] Last Admin: 07/08/18 00:28 Dose: 125 mls/hr Piperacillin Sod/Tazobactam (Sod 2.25 gm/ Dextrose) 50 mls @ 100 mls/hr IVPB Q6H-IV [facility]; Protocol Last Admin: 07/08/18 09:52 Dose: 100 mls/hr Sodium Bicarbonate 150 meq/ (Dextrose) 1,150 mls @ 100 mls/hr IV Q11H [facility] Stop: 07/09/18 13:59 Insulin Aspart (Novolog Vial Sliding Scale -) 1 vial SQ ACHS [facility]; Protocol Last Admin: 07/08/18 11:56 Dose: 4 unit Morphine Sulfate (Morphine Sulfate) 4 mg IVPUSH Q4H PRN PRN Reason: Pain Level 7 - 10 BREAKTHROUGH Mupirocin (Bactroban Ointment (For Decolonization) -) 1 applic NS BID [facility] Stop: 07/12/18 21:59 Last Admin: 07/08/18 04:44 Dose: Not Given Nicotine (Nicoderm Patch -) 14 mg TD DAILY [facility] Last Admin: 07/08/18 12:07 Dose: 14 mg Oxycodone HCl (Roxicodone -) 5 mg PO Q6H PRN PRN Reason: Pain Level 7 - 10 BREAKTHROUGH Rosuvastatin Calcium (Crestor -) 40 mg PO HS [facility] Last Admin: 07/08/18 04:45 Dose: Not Given Thiamine HCl (Vitamin B1 -) 100 mg PO DAILY [facility] Last Admin: 07/08/18 11:41 Dose: Not Given - Objective Vital Signs: Vital Signs Temperature 98.8 F 07/08/18 11:17 Pulse Rate 74 07/08/18 13:00 Respiratory Rate 24 H 07/08/18 13:00 Blood Pressure 107/57 L 07/08/18 13:00 O2 Sat by Pulse Oximetry (%) 100 07/08/18 13:45 Constitutional: Yes: Calm Eyes: Yes: Conjunctiva Clear HENT: Yes: Atraumatic Cardiovascular: Yes: S1, S2 Respiratory: Yes: On BiPap Gastrointestinal: Yes: Normal Bowel Sounds, Soft Genitourinary: Yes: Parson Present, Oliguria Musculoskeletal: Yes: WNL Edema: LUE: 1+, RUE: 1+, LLE: Trace, RLE: Trace Wound/Incision: Yes: Dressing Dry and Intact Neurological: Yes: Oriented Labs: CBC, BMP 07/08/18 05:30 07/08/18 06:04 INR, PTT INR 1.15 (0.83-1.09) H 07/08/18 06:30 - ....Imaging Chest X-ray: Report Reviewed Problem List - Problems (1) Acute kidney injury superimposed on CKD Code(s): N17.9 - ACUTE KIDNEY FAILURE, UNSPECIFIED; N18.9 - CHRONIC KIDNEY DISEASE, UNSPECIFIED (2) Diabetes mellitus type 2 in obese Code(s): E11.69 - TYPE 2 DIABETES MELLITUS WITH OTHER SPECIFIED COMPLICATION; E66.9 - OBESITY, UNSPECIFIED (3) Diabetes Code(s): E11.9 - TYPE 2 DIABETES MELLITUS WITHOUT COMPLICATIONS Qualifiers: Diabetes mellitus type: type 2 Diabetes mellitus complication status: with circulatory complication Diabetes mellitus complication detail: with peripheral angiopathy without gangrene Qualified Code(s): E11.51 - Type 2 diabetes mellitus with diabetic peripheral angiopathy without gangrene (4) FSGS (focal segmental glomerulosclerosis) Code(s): N05.1 - UNSP NEPH SYNDROME W FOCAL AND SEGMENTAL GLOMERULAR LESIONS (5) Hypertension Code(s): I10 - ESSENTIAL (PRIMARY) HYPERTENSION Qualifiers: Hypertension type: essential hypertension Qualified Code(s): I10 - Essential (primary) hypertension Assessment/Plan Current Medications Generic Name Dose Route Start Last Admin Trade Name Freq PRN Reason Stop Dose Admin Acetaminophen 650 mg 07/07/18 20:35 Tylenol - PO Q6H PRN Pain Level 4-10 Albuterol/Ipratropium 1 amp 07/08/18 08:54 Duoneb - NEB Q4H PRN SHORTNESS OF BREATH Carvedilol 25 mg 07/07/18 22:00 07/08/18 11:40 Coreg - PO Not Given BID [facility] Chlorhexidine Gluconate 1 applic 07/07/18 22:00 07/08/18 00:00 Hibiclens For Decolonization - TP 1 applic HS [facility] Administration Folic Acid 1 mg 07/08/18 10:00 07/08/18 11:41 Folic Acid - PO Not Given DAILY [facility] Heparin Sodium (Porcine) 5,000 unit 07/07/18 22:00 07/08/18 13:58 Heparin - SQ 5,000 unit TID [facility] Administration Clindamycin Phosphate 600 mg in 50 mls @ 100 mls/hr 07/08/18 02:00 07/08/18 09:52 Cleocin 600 Mg Premix Ivpb - IVPB 100 mls/hr Q8H-IV [facility] Administration Protocol Sodium Chloride 1,000 mls @ 125 mls/hr 07/07/18 20:35 07/08/18 00:28 Normal Saline - IV 125 mls/hr ASDIR [facility] Administration Piperacillin Sod/Tazobactam 50 mls @ 100 mls/hr 07/07/18 21:00 07/08/18 09:52 Sod 2.25 gm/ Dextrose IVPB 100 mls/hr Q6H-IV [facility] Administration Protocol Sodium Bicarbonate 150 meq/ 1,150 mls @ 100 mls/hr 07/08/18 14:00 Dextrose IV 07/09/18 13:59 Q11H [facility] Insulin Aspart 1 vial 07/07/18 22:00 07/08/18 11:56 Novolog Vial Sliding Scale - SQ 4 unit ACHS [facility] Administration Protocol Morphine Sulfate 4 mg 07/07/18 20:35 Morphine Sulfate IVPUSH Q4H PRN Pain Level 7 - 10 BREAKTHROUGH Mupirocin 1 applic 07/07/18 22:00 07/08/18 04:44 Bactroban Ointment (For Decolonization) - NS 07/12/18 21:59 Not Given BID [facility] Nicotine 14 mg 07/08/18 10:00 07/08/18 12:07 Nicoderm Patch - TD 14 mg DAILY [facility] Administration Oxycodone HCl 5 mg 07/07/18 20:35 Roxicodone - PO Q6H PRN Pain Level 7 - 10 BREAKTHROUGH Rosuvastatin Calcium 40 mg 07/07/18 22:00 07/08/18 04:45 Crestor - PO Not Given HS [facility] Thiamine HCl 100 mg 07/08/18 10:00 07/08/18 11:41 Vitamin B1 - PO Not Given DAILY [facility] Impression 1. CKD with hx of FSGS 2. PVD 3. DM 4. HTN 5. hyperlipidemia 6. BPH 7. CAD 8. fourniers gangrene 9. [place] Plan - renal function has not improved - cont fluids, can give bicarb drip for now - monitor lytes closely - discussed with ICU team - monitor urine output - d/c LR as it has potassium in im - bipap as needed - discussed with family - monitor abg and bicarb levels - hold spironolactone
[2018-07-08] MEDS: SODIUM BICARBONATE 8.4% - 150 MEQ in DEXTROSE 5%-WATER - 1,000 ML IV SCH (16:00)
[2018-07-08] MEDS ORDERED: PT OWN MED DRAWER 7, Y5N ONE (16:12)
--- NOTE | 2018-07-08 16:30 | PN ---
Progress Note, Physician History of Present Illness: events noted patient went into cardiac arrest because of resp issues was reviewed and placed on bipap wbc trending down - Current Medication List Current Medications: Active Medications Acetaminophen (Tylenol -) 650 mg PO Q6H PRN PRN Reason: Pain Level 4-10 Albuterol/Ipratropium (Duoneb -) 1 amp NEB Q4H PRN PRN Reason: SHORTNESS OF BREATH Carvedilol (Coreg -) 25 mg PO BID [facility] Last Admin: 07/08/18 11:40 Dose: Not Given Chlorhexidine Gluconate (Hibiclens For Decolonization -) 1 applic TP HS [facility] Last Admin: 07/08/18 00:00 Dose: 1 applic Folic Acid (Folic Acid -) 1 mg PO DAILY [facility] Last Admin: 07/08/18 11:41 Dose: Not Given Heparin Sodium (Porcine) (Heparin -) 5,000 unit SQ TID [facility] Last Admin: 07/08/18 13:58 Dose: 5,000 unit Clindamycin Phosphate (Cleocin 600 Mg Premix Ivpb -) 600 mg in 50 mls @ 100 mls /hr IVPB Q8H-IV [facility]; Protocol Last Admin: 07/08/18 09:52 Dose: 100 mls/hr Sodium Chloride (Normal Saline -) 1,000 mls @ 125 mls/hr IV ASDIR [facility] Last Admin: 07/08/18 00:28 Dose: 125 mls/hr Piperacillin Sod/Tazobactam (Sod 2.25 gm/ Dextrose) 50 mls @ 100 mls/hr IVPB Q6H-IV [facility]; Protocol Last Admin: 07/08/18 09:52 Dose: 100 mls/hr Sodium Bicarbonate 150 meq/ (Dextrose) 1,150 mls @ 100 mls/hr IV Q11H [facility] Stop: 07/09/18 13:59 Last Admin: 07/08/18 16:00 Dose: 100 mls/hr Insulin Aspart (Novolog Vial Sliding Scale -) 1 vial SQ ACHS [facility]; Protocol Last Admin: 07/08/18 11:56 Dose: 4 unit Morphine Sulfate (Morphine Sulfate) 4 mg IVPUSH Q4H PRN PRN Reason: Pain Level 7 - 10 BREAKTHROUGH Mupirocin (Bactroban Ointment (For Decolonization) -) 1 applic NS BID [facility] Stop: 07/12/18 21:59 Last Admin: 07/08/18 11:00 Dose: 1 applic Nicotine (Nicoderm Patch -) 14 mg TD DAILY [facility] Last Admin: 07/08/18 12:07 Dose: 14 mg Oxycodone HCl (Roxicodone -) 5 mg PO Q6H PRN PRN Reason: Pain Level 7 - 10 BREAKTHROUGH Rosuvastatin Calcium (Crestor -) 40 mg PO HS [facility] Last Admin: 07/08/18 04:45 Dose: Not Given Thiamine HCl (Vitamin B1 -) 100 mg PO DAILY [facility] Last Admin: 07/08/18 11:41 Dose: Not Given - Objective Vital Signs: Vital Signs Temperature 98.8 F 07/08/18 11:17 Pulse Rate 74 07/08/18 13:00 Respiratory Rate 24 H 07/08/18 13:00 Blood Pressure 107/57 L 07/08/18 13:00 O2 Sat by Pulse Oximetry (%) 100 07/08/18 16:23 Constitutional: Yes: Obese Cardiovascular: Yes: Regular Rate and Rhythm Respiratory: Yes: On BiPap, Poor Air Entry Gastrointestinal: Yes: Soft, Other (absent bowel sounds) Musculoskeletal: Yes: Other Extremities: Yes: Other Neurological: Yes: Lethargy, Other Psychiatric: Yes: Other Labs: CBC, BMP 07/08/18 05:30 07/08/18 06:04 INR, PTT INR 1.15 (0.83-1.09) H 07/08/18 06:30 - ....Imaging Chest X-ray: Report Reviewed, Image Reviewed Assessment/Plan Problem List - Problems (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 (2) Perineal pain Code(s): R10.2 - PELVIC AND PERINEAL PAIN (3) Scrotal pain Code(s): N50.82 - SCROTAL PAIN (4) CKD (chronic kidney disease) stage 3, GFR 30-59 ml/min Code(s): N18.3 - CHRONIC KIDNEY DISEASE, STAGE 3 (MODERATE) (5) BPH (benign prostatic hyperplasia) Code(s): N40.0 - BENIGN PROSTATIC HYPERPLASIA WITHOUT LOWER URINRY TRACT SYMP Qualifiers: Lower urinary tract symptom presence: unspecified whether lower urinary tract symptoms present Qualified Code(s): N40.0 - Benign prostatic hyperplasia without lower urinary tract symptoms (6) Coronary artery disease Code(s): I25.10 - ATHSCL HEART DISEASE OF [place] CORONARY ARTERY W/O ANG PCTRS Qualifiers: Coronary Disease-Associated Artery/Lesion type: [place] artery [place] vs. transplanted heart: [place] heart Associated angina: without angina Qualified Code(s): I25.10 - Atherosclerotic heart disease of [place] coronary artery without angina pectoris (7) Hyperlipidemia Code(s): E78.5 - HYPERLIPIDEMIA, UNSPECIFIED Qualifiers: Hyperlipidemia type: unspecified Qualified Code(s): E78.5 - Hyperlipidemia , unspecified (8) Hypertension Code(s): I10 - ESSENTIAL (PRIMARY) HYPERTENSION Qualifiers: Hypertension type: essential hypertension Qualified Code(s): I10 - Essential (primary) hypertension (9) Diabetes mellitus type 2 in obese Code(s): E11.69 - TYPE 2 DIABETES MELLITUS WITH OTHER SPECIFIED COMPLICATION; E66.9 - OBESITY, UNSPECIFIED (10) Tobacco dependence due to cigarettes Assessment/Plan: nicotine patch in use Code(s): F17.210 - NICOTINE DEPENDENCE, CIGARETTES, UNCOMPLICATED 11 cardiac arrest plan will continue abx await for cx reports close watch on the patient resp support wound care rest as per surgery cc 45 min
--- NOTE | 2018-07-08 17:13 | EKG ---
Test Reason : Blood Pressure : / mmHG Vent. Rate : 095 BPM Atrial Rate : 095 BPM P-R Int : 206 ms QRS Dur : 158 ms QT Int : 386 ms P-R-T Axes : 000 014 113 degrees QTc Int : 485 ms POOR DATA QUALITY, INTERPRETATION MAY BE ADVERSELY AFFECTED NORMAL SINUS RHYTHM LEFT BUNDLE BRANCH BLOCK ABNORMAL ECG WHEN COMPARED WITH ECG OF 09-JUN-2015 10:26, NO SIGNIFICANT CHANGE WAS FOUND Confirmed by VERITO BECERRA MD ([id number]) on 07/08/2018 5:12:42 PM Referred By: Confirmed By:VERITO BECERRA MD
[2018-07-08 19:57] LABS: ARTERIAL BLD GAS O2 SATURATION 97.6 % (95-98); ARTERIAL BLOOD GAS BASE EXCESS -8.5 meq/l (-2-2); ARTERIAL BLOOD GAS PCO2 36.5 mmHg (35-45); ARTERIAL BLOOD GAS PO2 118 mmHg (80-105); ARTERIAL BLOOD GAS pH 7.29 (7.35-7.45)
[2018-07-08 19:58] LABS: ALLENS TEST POSITIVE
[2018-07-08] MEDS: CHLORHEXIDINE GLUCONATE 4% CLEANSER FOR DECOLONIZATION TP SCH ×2 (21:59)
--- NOTE | 2018-07-08 22:41 | PN ---
Progress Note, Physician History of Present Illness: Pt with Nika's gangrene s/p wide debridement of scrotum, perineum and right perirectal area yesterday with urology. Seen and examined in ICU. Postop events noted - he coded in PACU, thought to be possible primary respiratory event, and had ROSC after rounds of ACLS and attempted intubation with self-extubation, and has been subsequently awake and aware. BiPAP used overnight and resumed tonight (pt on CPAP at home). Pt states having some pain but somewhat better overall. Parson in place with light/clear yellow urine in bag. Dressing has been reinforced by nursing for seepage/drainage soaking through. No BM yet or urge to go. ICU placed CVC and a-line earlier today. Creatinine still in 5 range, seen by nephrology; also seen by cardio and ID. - Current Medication List Current Medications: Active Medications Acetaminophen (Tylenol -) 650 mg PO Q6H PRN PRN Reason: Pain Level 4-10 Albuterol/Ipratropium (Duoneb -) 1 amp NEB Q4H PRN PRN Reason: SHORTNESS OF BREATH Carvedilol (Coreg -) 25 mg PO BID [facility] Last Admin: 07/08/18 21:09 Dose: Not Given Chlorhexidine Gluconate (Hibiclens For Decolonization -) 1 applic TP HS [facility] Last Admin: 07/08/18 21:59 Dose: 1 applic Folic Acid (Folic Acid -) 1 mg PO DAILY [facility] Last Admin: 07/08/18 11:41 Dose: Not Given Heparin Sodium (Porcine) (Heparin -) 5,000 unit SQ TID [facility] Last Admin: 07/08/18 21:59 Dose: 5,000 unit Clindamycin Phosphate (Cleocin 600 Mg Premix Ivpb -) 600 mg in 50 mls @ 100 mls /hr IVPB Q8H-IV [facility]; Protocol Last Admin: 07/08/18 17:37 Dose: 100 mls/hr Sodium Chloride (Normal Saline -) 1,000 mls @ 125 mls/hr IV ASDIR [facility] Last Admin: 07/08/18 00:28 Dose: 125 mls/hr Piperacillin Sod/Tazobactam (Sod 2.25 gm/ Dextrose) 50 mls @ 100 mls/hr IVPB Q6H-IV [facility]; Protocol Last Admin: 07/08/18 21:58 Dose: 100 mls/hr Sodium Bicarbonate 150 meq/ (Dextrose) 1,150 mls @ 100 mls/hr IV Q11H [facility] Stop: 07/09/18 13:59 Last Admin: 07/08/18 16:00 Dose: 100 mls/hr Insulin Aspart (Novolog Vial Sliding Scale -) 1 vial SQ ACHS [facility]; Protocol Last Admin: 07/08/18 22:14 Dose: 2 unit Morphine Sulfate (Morphine Sulfate) 4 mg IVPUSH Q4H PRN PRN Reason: Pain Level 7 - 10 BREAKTHROUGH Mupirocin (Bactroban Ointment (For Decolonization) -) 1 applic NS BID [facility] Stop: 07/12/18 21:59 Last Admin: 07/08/18 22:00 Dose: 1 applic Nicotine (Nicoderm Patch -) 14 mg TD DAILY [facility] Last Admin: 07/08/18 12:07 Dose: 14 mg Oxycodone HCl (Roxicodone -) 5 mg PO Q6H PRN PRN Reason: Pain Level 7 - 10 BREAKTHROUGH Rosuvastatin Calcium (Crestor -) 40 mg PO HS [facility] Last Admin: 07/08/18 21:09 Dose: Not Given Thiamine HCl (Vitamin B1 -) 100 mg PO DAILY [facility] Last Admin: 07/08/18 11:41 Dose: Not Given - Objective Vital Signs: Vital Signs Temperature 98.7 F 07/08/18 18:00 Pulse Rate 83 07/08/18 18:00 Respiratory Rate 24 H 07/08/18 18:00 Blood Pressure 128/50 L 07/08/18 18:00 O2 Sat by Pulse Oximetry (%) 98 07/08/18 21:00 Vital Signs Period Temp Pulse Resp BP Sys/Ramos Pulse Ox Last 24 Hr 97.5 F-98.8 F 74-118 22-33 89-145/47-84 95-100 Constitutional: Yes: No Distress, Calm, Obese Eyes: Yes: Conjunctiva Clear, EOM Intact HENT: Yes: Atraumatic, Normocephalic Respiratory: Yes: On BiPap. No: SOB Gastrointestinal: Yes: Soft, Abdomen, Obese, Tenderness (mild lower abd tenderness, no R/G) ...Rectal Exam: Yes: Deferred Genitourinary: Yes: Parson Present. No: Hematuria Extremities: No: Cool, Cyanosis Integumentary: Yes: Incision (perineal - dressed). No: Jaundice, Rash Wound/Incision: Yes: Dressing Dry and Intact, Draining (serosang staining per nursing - dressing appears intact with some additional absorbent padding - pt not rolled or positioned to inspect or remove entire site at this time; not currently soaked through). No: Dressing Removed Neurological: Yes: Alert, Oriented Labs: CBC, BMP 07/08/18 05:30 07/08/18 06:04 INR, PTT INR 1.15 (0.83-1.09) H 07/08/18 06:30 Problem List - Problems (1) Nika's gangrene Assessment/Plan: POD1 s/p wide local debridement of skin/subcu/fascia/muscle from scrotum/ perineum/right perirectal area (~600cm2) with packing, testes tucked into scrotal skin pocket loosely created by urology, Parson placed and left NPO/generous IV hydration - nephrology on board IV antibiotics Clinda and Zosyn per ID pain meds prn will plan to change dressing tomorrow f/u cultures pending Given his underlying comorbidities as well as code last night, patient would likely benefit from transfer to tertiary center while stable, as he most likely will need diversion of colon/intestine to allow healing of wound site, as well as complex wound care and reconstructive options from plastic surgery and urology. This has been discussed with urology, cardiology and medicine/ICU, all of whom concur. Presuming he is stable in the am, and wound site looks clean, will pursue possible transfer to [facility] where pt is known from his previous cardiac stents. Discussed with Armando Salas in ICU. This patient is critically ill. Time spent reviewing chart, examining patient, talking with providers and/or family and documentation is 50 minutes. Code(s): N49.3 - NIKA GANGRENE (2) Perineal pain Code(s): R10.2 - PELVIC AND PERINEAL PAIN (3) Scrotal pain Code(s): N50.82 - SCROTAL PAIN (4) CKD (chronic kidney disease) stage 3, GFR 30-59 ml/min Code(s): N18.3 - CHRONIC KIDNEY DISEASE, STAGE 3 (MODERATE) (5) BPH (benign prostatic hyperplasia) Code(s): N40.0 - BENIGN PROSTATIC HYPERPLASIA WITHOUT LOWER URINRY TRACT SYMP Qualifiers: Lower urinary tract symptom presence: unspecified whether lower urinary tract symptoms present Qualified Code(s): N40.0 - Benign prostatic hyperplasia without lower urinary tract symptoms (6) Coronary artery disease Code(s): I25.10 - ATHSCL HEART DISEASE OF [place] CORONARY ARTERY W/O ANG PCTRS Qualifiers: Coronary Disease-Associated Artery/Lesion type: [place] artery [place] vs. transplanted heart: [place] heart Associated angina: without angina Qualified Code(s): I25.10 - Atherosclerotic heart disease of [place] coronary artery without angina pectoris (7) Hyperlipidemia Code(s): E78.5 - HYPERLIPIDEMIA, UNSPECIFIED Qualifiers: Hyperlipidemia type: unspecified Qualified Code(s): E78.5 - Hyperlipidemia , unspecified (8) Hypertension Code(s): I10 - ESSENTIAL (PRIMARY) HYPERTENSION Qualifiers: Hypertension type: essential hypertension Qualified Code(s): I10 - Essential (primary) hypertension (9) Diabetes mellitus type 2 in obese Code(s): E11.69 - TYPE 2 DIABETES MELLITUS WITH OTHER SPECIFIED COMPLICATION; E66.9 - OBESITY, UNSPECIFIED (10) Tobacco dependence due to cigarettes Assessment/Plan: nicotine patch in use Code(s): F17.210 - NICOTINE DEPENDENCE, CIGARETTES, UNCOMPLICATED
[2018-07-09] MEDS ORDERED: DEXTROSE 5%-WATER - 50 ML IVPB ONE ×4 (02:40→21:36)
[2018-07-09] MEDS ORDERED: PIPERACILLIN/TAZOBACTAM 2.25 GM VIAL IVPB ONE ×4 (02:40→21:36)
[2018-07-09] MEDS: CLINDAMYCIN 600MG PREMIX IVPB 600 MG/50 ML BAG IVPB SCH ×3 (02:43→17:30)
[2018-07-09] MEDS: PIPERACILLIN/TAZOB 2.25 GM 2.25 GM in DEXTROSE 5%-WATER - 50 ML IVPB SCH ×4 (02:43→21:43)
[2018-07-09] MEDS: SODIUM BICARBONATE 8.4% - 150 MEQ in DEXTROSE 5%-WATER - 1,000 ML IV SCH ×3 (02:43→17:32)
[2018-07-09] MEDS: HEPARIN NA (PORCINE) 5,000 UNITS/ML 1ML VIAL SQ SCH ×3 (06:00→21:42)
[2018-07-09] MEDS: INSULIN SLIDING SCALE (NOVOLOG) 1 VIAL SQ SCH ×4 (06:00→21:48)
[2018-07-09 06:23] LABS: BASO % 0.2 % (0-2.0); EOS % 0.6 % (0-4.5); HEMATOCRIT 34.2 % (35.4-49); HEMOGLOBIN 11.6 GM/dL (11.7-16.9); LYMPH % 4.2 % (8-40); MCH 31.2 pg (25.7-33.7); MCHC 34.1 g/dl (32.0-35.9); MEAN CELL VOLUME 91.7 fl (80-96); MONO % 4.2 % (3.8-10.2); NEUT % 90.8 % (42.8-82.8); PLATELET COUNT 228 K/MM3 (134-434); RBC 3.73 M/mm3 (4.00-5.60); RDW 14.4 % (11.9-15.9); WHITE BLOOD COUNT 12.5 K/mm3 (4.0-10.0)
[2018-07-09 06:46] LABS: ALBUMIN 1.6 g/dl (3.4-5.0); ALK PHOS 108 U/L (45-117); ANION GAP 10 MMOL/L (8-16); BILIRUBIN,TOTAL 0.2 mg/dL (0.2-1); BLOOD UREA NITROGEN 94 mg/dL (7-18); CALCIUM 7.8 mg/dL (8.5-10.1); CHLORIDE 108 mmol/L (98-107); CO2 21 mmol/L (21-32); CREATININE 5.2 mg/dL (0.55-1.3); GLUCOSE,RANDOM 190 mg/dL (74-106); MAGNESIUM 2.4 mg/dL (1.8-2.4); POTASSIUM 4.5 mmol/L (3.5-5.1); SGOT/AST 150 U/L (15-37); SGPT/ALT 132 U/L (13-61); SODIUM 139 mmol/L (136-145); TOT PROT 4.8 g/dl (6.4-8.2)
[2018-07-09] MEDS: ALBUTEROL SO4 2.5/IPRATROPIUM 0.5 INH SOL 3 ML VIAL.NEB. NEB PRN ×2 (07:25→15:19)
--- NOTE | 2018-07-09 09:10 | PN ---
Progress Note (short form) - Note Progress Note: PULM/CCM Pt Seen & Examined in the ICU, much more awake s/p Bi-Level O/N, ABG has normalized, no pressors, IVFs continue. Active Medications Acetaminophen (Tylenol -) 650 mg PO Q6H PRN PRN Reason: Pain Level 4-10 Albuterol/Ipratropium (Duoneb -) 1 amp NEB Q4H PRN PRN Reason: SHORTNESS OF BREATH Last Admin: 07/09/18 15:19 Dose: 1 amp Carvedilol (Coreg -) 25 mg PO BID [facility] Last Admin: 07/09/18 10:33 Dose: 25 mg Chlorhexidine Gluconate (Hibiclens For Decolonization -) 1 applic TP HS [facility] Last Admin: 07/08/18 21:59 Dose: 1 applic Folic Acid (Folic Acid -) 1 mg PO DAILY [facility] Last Admin: 07/09/18 10:32 Dose: 1 mg Heparin Sodium (Porcine) (Heparin -) 5,000 unit SQ TID [facility] Last Admin: 07/09/18 13:34 Dose: 5,000 unit Clindamycin Phosphate (Cleocin 600 Mg Premix Ivpb -) 600 mg in 50 mls @ 100 mls /hr IVPB Q8H-IV [facility]; Protocol Last Admin: 07/09/18 10:08 Dose: 100 mls/hr Piperacillin Sod/Tazobactam (Sod 2.25 gm/ Dextrose) 50 mls @ 100 mls/hr IVPB Q6H-IV [facility]; Protocol Last Admin: 07/09/18 14:30 Dose: 100 mls/hr Insulin Aspart (Novolog Vial Sliding Scale -) 1 vial SQ ACHS [facility]; Protocol Last Admin: 07/09/18 12:00 Dose: 4 unit Morphine Sulfate (Morphine Sulfate) 4 mg IVPUSH Q4H PRN PRN Reason: Pain Level 7 - 10 BREAKTHROUGH Last Admin: 07/09/18 14:30 Dose: 4 mg Mupirocin (Bactroban Ointment (For Decolonization) -) 1 applic NS BID [facility] Stop: 07/12/18 21:59 Last Admin: 07/09/18 10:09 Dose: 1 applic Nicotine (Nicoderm Patch -) 14 mg TD DAILY [facility] Last Admin: 07/09/18 10:31 Dose: 14 mg Oxycodone HCl (Roxicodone -) 5 mg PO Q6H PRN PRN Reason: Pain Level 7 - 10 BREAKTHROUGH Rosuvastatin Calcium (Crestor -) 40 mg PO HS [facility] Last Admin: 07/08/18 21:09 Dose: Not Given Thiamine HCl (Vitamin B1 -) 100 mg PO DAILY [facility] Last Admin: 07/09/18 10:32 Dose: 100 mg V/S Period Temp Pulse Resp BP Sys/Ramos Pulse Ox Last 24 Hr 97.4 F-98.7 F 81-88 22-26 102-130/47-62 98-100 Intake & Output 07/06/18 07/07/18 07/08/18 07/09/18 23:59 23:59 23:59 23:59 Intake Total 3100 4475 1300 Output Total 1400 1070 1220 Balance 1700 3405 80 Weight 133.81 kg 129.727 kg 129.727 kg CBC, BMP 07/09/18 05:30 07/09/18 05:30 Microbiology 07/07/18 09:30 Blood - Peripheral Venous Blood Culture - Preliminary NO GROWTH OBTAINED AFTER 48 HOURS, INCUBATION TO CONTINUE FOR 3 DAYS. 07/07/18 09:20 Blood - Peripheral Venous Blood Culture - Preliminary NO GROWTH OBTAINED AFTER 48 HOURS, INCUBATION TO CONTINUE FOR 3 DAYS. 07/07/18 16:35 Tissue-Other Gram Stain - Final 07/07/18 16:35 Tissue-Other Tissue Culture - Preliminary Non Lactose Fermenting Gnb Group D Strep Or Entero Coccus 07/07/18 16:32 Wound Gram Stain - Final 07/07/18 16:32 Wound Wound Culture - Preliminary Non Lactose Fermenting Gnb Group D Strep Or Entero Coccus Alpha Hemolytic Streptococcus Chest X-ray: Report Reviewed (07/08: Since the prior study of 07/07/2018, left jugular line has been inserted and the tip is in the left innominate heading towards the SVC. Again noted is a large heart, unfolded aorta and there are some prominent left perihilar markings. Correlation recommended.) Cat Scan: Report Reviewed (CTAP 06/13/2015: Diffuse aortoiliac, femoro- popliteal and infrapopliteal atherosclerotic disease, as described above. - Occluded left LUKE with reconstitution of the left STAFF MECHANICAL ENGINEER which in turns demonstrate 50-70% stenosis. Three-vessel runoff seen to the left foot. - Severe atherosclerotic disease with stenosis reaching at least 70-90% in the right LUKE and STAFF MECHANICAL ENGINEER in addition to at least 50% stenosis in the right SFA and popliteal artery associated with occluded right CADY and 2 vessel runoff to the right foot provided by the CORPORATE COMMUNICATIONS SPECIALIST and PA. Bilateral adrenal hypertrophy hyperplasia. Moderate bilateral perirenal fat stranding is nonspecific and can be seen in the setting of medical renal disease. Small urinary bladder diverticulum. Adequate evaluation of the pelvis including bladder and prostate is limited due to streak artifacts from hip prosthesis. Mild descending and sigmoid colon diverticulosis. Status post bilateral hip replacements.) EKG: Image Reviewed (07/07 12-LEAD: RSR in the 80's w/o ectopy, L BBB, QTc = 485ms, no acute process (My Read).) ASSESSMENT/PLAN: This is a 73 y/o man w/ MO, DM, HTN, HL, CAD, CHF, CKD, peripheral arterial occlusive dz, & BPH. The pt is now in the ICU Post-Op Day # 2 s/p debridement of raul's w/ resolving resp fail, acidosis, renal failure , and shock. PULM: Hyper Cap Resp Fail Supp FiO2 Nebs Bi-Level prn Standing nocturnal Bi-Level ID/: s/p debridement of extensive Raul's Abx F/u Clxrs Change packing today Transfer to [facility] for diversion colostomy and plastics CARDS: Shock m/l Septic Relative hypotension D/c All anti-HTN Meds IVFs for a CVP of 12 Press for a MAP of 65 Agressive IVFs Trend LA RENAL: A on C renal Fail in the setting of severe sepsis Strict I's & O's Monitor whiting output. 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 transplanted heart: [place] heart Associated angina: without angina Qualified Code(s): I25.10 - Atherosclerotic heart disease of [place] coronary artery without angina pectoris (6) Peripheral arterial occlusive disease Code(s): I77.9 - DISORDER OF ARTERIES AND ARTERIOLES, UNSPECIFIED (7) Tobacco dependence due to cigarettes Code(s): F17.210 - NICOTINE DEPENDENCE, CIGARETTES, UNCOMPLICATED
--- NOTE | 2018-07-09 09:42 | PN ---
Physical Exam: SUBJECTIVE: Patient seen and examined in the icu. on bipap denies chest pain, some pain at surgery site, but relieved with pain medications. OBJECTIVE: creat 5.2 elevated ast/alt discussed poc, events of hospitalization with pt. urine cloudy/hazy yellow blood cultures russ negative tissue culture pending wound changed by dr. vogel. Vital Signs Period Temp Pulse Resp BP Sys/Ramos Pulse Ox Last 24 Hr 97.4 F-98.8 F 74-89 22-26 102-130/47-62 98-100 GENERAL: awake, alert in no acute distress. alert to person, place time HEAD: Normal with no signs of trauma. EYES: Pupils equal, round and reactive to light, extraocular movements intact, sclera anicteric, conjunctiva clear. No lid lag. EARS, NOSE, THROAT: Ears normal, nares patent, oropharynx clear without exudates. moist mucous membranes. NECK: Normal range of motion, supple without lymphadenopathy, JVD, or masses. LUNGS: on bipap. wheezing anteriorly. oxygen sats in the 90s on bipap. mentation at baseline. not confused. abg 07/08/18 shows metabolic acidosis with concurrent respiratory acidosis. HEART: Regular rate and rhythm, bp improved ABDOMEN: obese soft abdomen - no pain MUSCULOSKELETAL: Normal range of motion at all joints. No bony deformities or tenderness. No CVA tenderness. UPPER EXTREMITIES: No peripheral edema. LOWER EXTREMITIES: trace peripheral edema. NEUROLOGICAL: Normal speech PSYCHIATRIC: awake, alert, calm, cooperative SKIN:s/p debridement of scrotal necrotic wound - dressing intact Laboratory Results - last 24 hr 07/08/18 07/08/18 07/08/18 05:30 11:14 11:40 WBC RBC Hgb Hct MCV MCH MCHC RDW Plt Count MPV Absolute Neuts (auto) Neutrophils % Neutrophils % (Manual) 90.0 H D Band Neutrophils % 4.0 Lymphocytes % Lymphocytes % (Manual) 1.0 L D Monocytes % Monocytes % (Manual) 3 L Eosinophils % Eosinophils % (Manual) 0.0 Basophils % Basophils % (Manual) 0.0 Myelocytes % (Man) 0 Promyelocytes % (Man) 0 Blast Cells % (Manual) 0 Nucleated RBC % 0 Metamyelocytes 0 D Platelet Estimate Normal Puncture Site Right radial ABG pH 7.19 L* ABG pCO2 at Pt Temp 44.9 ABG pO2 at Pt Temp 93.0 ABG HCO3 16.5 L ABG O2 Sat (Measured) 94.9 L ABG O2 Content 18.0 ABG Base Excess -11.2 L Dashawn Test Positive Oxygen Flow Rate Yes Vent Mode Pressure Support Vent Sodium Potassium Chloride Carbon Dioxide Anion Gap BUN Creatinine Creat Clearance w eGFR POC Glucometer Random Glucose Lactic Acid 1.0 Calcium Magnesium Total Bilirubin AST ALT Alkaline Phosphatase Total Protein Albumin 07/08/18 07/08/18 07/08/18 14:05 17:23 19:34 WBC RBC Hgb Hct MCV MCH MCHC RDW Plt Count MPV Absolute Neuts (auto) Neutrophils % Neutrophils % (Manual) Band Neutrophils % Lymphocytes % Lymphocytes % (Manual) Monocytes % Monocytes % (Manual) Eosinophils % Eosinophils % (Manual) Basophils % Basophils % (Manual) Myelocytes % (Man) Promyelocytes % (Man) Blast Cells % (Manual) Nucleated RBC % Metamyelocytes Platelet Estimate Puncture Site Right radial No Result Required. ABG pH 7.24 L 7.29 L ABG pCO2 at Pt Temp 38.5 36.5 ABG pO2 at Pt Temp 126 H 118 H ABG HCO3 15.9 L 16.9 L ABG O2 Sat (Measured) 97.7 97.6 ABG O2 Content 14.7 L 15.6 ABG Base Excess -10.3 L -8.5 L Dashawn Test Positive Positive Oxygen Flow Rate Yes No Result Required. Vent Mode S/t Pressure Support Vent 18/8 Sodium Potassium Chloride Carbon Dioxide Anion Gap BUN Creatinine Creat Clearance w eGFR POC Glucometer 214 Random Glucose Lactic Acid Calcium Magnesium Total Bilirubin AST ALT Alkaline Phosphatase Total Protein Albumin 07/08/18 07/09/18 07/09/18 22:13 05:30 05:30 WBC 12.5 H RBC 3.73 L Hgb 11.6 L Hct 34.2 L MCV 91.7 MCH 31.2 MCHC 34.1 RDW 14.4 Plt Count 228 MPV 9.0 Absolute Neuts (auto) 11.4 H Neutrophils % 90.8 H Neutrophils % (Manual) Band Neutrophils % Lymphocytes % 4.2 L D Lymphocytes % (Manual) Monocytes % 4.2 Monocytes % (Manual) Eosinophils % 0.6 D Eosinophils % (Manual) Basophils % 0.2 Basophils % (Manual) Myelocytes % (Man) Promyelocytes % (Man) Blast Cells % (Manual) Nucleated RBC % 0 Metamyelocytes Platelet Estimate Puncture Site ABG pH ABG pCO2 at Pt Temp ABG pO2 at Pt Temp ABG HCO3 ABG O2 Sat (Measured) ABG O2 Content ABG Base Excess Dashawn Test Oxygen Flow Rate Vent Mode Pressure Support Vent Sodium 139 Potassium 4.5 Chloride 108 H Carbon Dioxide 21 Anion Gap 10 BUN 94 H Creatinine 5.2 H Creat Clearance w eGFR 10.99 POC Glucometer 184 Random Glucose 190 H Lactic Acid Calcium 7.8 L Magnesium 2.4 Total Bilirubin 0.2 AST 150 H ALT 132 H Alkaline Phosphatase 108 Total Protein 4.8 L Albumin 1.6 L 07/09/18 05:58 WBC RBC Hgb Hct MCV MCH MCHC RDW Plt Count MPV Absolute Neuts (auto) Neutrophils % Neutrophils % (Manual) Band Neutrophils % Lymphocytes % Lymphocytes % (Manual) Monocytes % Monocytes % (Manual) Eosinophils % Eosinophils % (Manual) Basophils % Basophils % (Manual) Myelocytes % (Man) Promyelocytes % (Man) Blast Cells % (Manual) Nucleated RBC % Metamyelocytes Platelet Estimate Puncture Site ABG pH ABG pCO2 at Pt Temp ABG pO2 at Pt Temp ABG HCO3 ABG O2 Sat (Measured) ABG O2 Content ABG Base Excess Dashawn Test Oxygen Flow Rate Vent Mode Pressure Support Vent Sodium Potassium Chloride Carbon Dioxide Anion Gap BUN Creatinine Creat Clearance w eGFR POC Glucometer 202 Random Glucose Lactic Acid Calcium Magnesium Total Bilirubin AST ALT Alkaline Phosphatase Total Protein Albumin Active Medications Generic Name Dose Route Start Last Admin Trade Name Freq PRN Reason Stop Dose Admin Acetaminophen 650 mg 07/07/18 20:35 Tylenol - PO Q6H PRN Pain Level 4-10 Albuterol/Ipratropium 1 amp 07/08/18 08:54 07/09/18 07:25 Duoneb - NEB 1 amp Q4H PRN Administration SHORTNESS OF BREATH Carvedilol 25 mg 07/07/18 22:00 07/08/18 21:09 Coreg - PO Not Given BID [facility] Chlorhexidine Gluconate 1 applic 07/07/18 22:00 07/08/18 21:59 Hibiclens For Decolonization - TP 1 applic HS [facility] Administration Folic Acid 1 mg 07/08/18 10:00 07/08/18 11:41 Folic Acid - PO Not Given DAILY [facility] Heparin Sodium (Porcine) 5,000 unit 07/07/18 22:00 07/09/18 06:00 Heparin - SQ 5,000 unit TID [facility] Administration Clindamycin Phosphate 600 mg in 50 mls @ 100 mls/hr 07/08/18 02:00 07/09/18 02:43 Cleocin 600 Mg Premix Ivpb - IVPB 100 mls/hr Q8H-IV [facility] Administration Protocol Piperacillin Sod/Tazobactam 50 mls @ 100 mls/hr 07/07/18 21:00 07/09/18 08:47 Sod 2.25 gm/ Dextrose IVPB 100 mls/hr Q6H-IV [facility] Administration Protocol Sodium Bicarbonate 150 meq/ 1,150 mls @ 100 mls/hr 07/08/18 14:00 07/09/18 02 :43 Dextrose IV 07/09/18 13:59 100 mls/hr Q11H [facility] Administration Insulin Aspart 1 vial 07/07/18 22:00 07/09/18 06:00 Novolog Vial Sliding Scale - SQ 4 unit ACHS [facility] Administration Protocol Morphine Sulfate 4 mg 07/07/18 20:35 Morphine Sulfate IVPUSH Q4H PRN Pain Level 7 - 10 BREAKTHROUGH Mupirocin 1 applic 07/07/18 22:00 07/08/18 22:00 Bactroban Ointment (For Decolonization) - NS 07/12/18 21:59 1 applic BID [facility] Administration Nicotine 14 mg 07/08/18 10:00 07/08/18 12:07 Nicoderm Patch - TD 14 mg DAILY [facility] Administration Oxycodone HCl 5 mg 07/07/18 20:35 Roxicodone - PO Q6H PRN Pain Level 7 - 10 BREAKTHROUGH Rosuvastatin Calcium 40 mg 07/07/18 22:00 07/08/18 21:09 Crestor - PO Not Given HS [facility] Thiamine HCl 100 mg 07/08/18 10:00 07/08/18 11:41 Vitamin B1 - PO Not Given DAILY [facility] ASSESSMENT/PLAN: Patient is a 73 year old male with a significant past medical history of ischemic right first toe with peripheral arterial occlusive disease, 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 He comes to the ED 07/07/18 with c/o of progressive pain and tenderness of his right scrotal region and left buttock region and swelling that started 4 days prior to admission and continued to worsen prompting an ED visit. The wound area started as a boil on this left buttocks and gradually increased in size and caused burning pain and bruising and dark wound on his right scrotal sac. He had chills and diaphoresis at home. In the ER labs revealed: fever of 100.8, leukocytosis 15, dyspnea, PIYUSH and hypotension. He was given Clindamycin, Zosyn and Vancomycin with fluid boluses. Blood cultures drawn. He was emergently taken to the OR and is s/p debridement of raul's gangrene and necrotizing infection of perineum, right perirectal area and scrotum. ID/: severe sepsis secondary to necrotic tissue of right scrotum with weeping and foul odor. given clindamycin, vanco and zosyn. in the ED. Now on Zosyn and clindamycin per id. s/p debridement of [place] gangrene and necrotizing infection of perineum, scrotom POD 2 BP stable, not on pressors. blood cultures pending. tissue and wound cultured and pending. Monitor labs, vitals and airway After surgery he became a code 99 and was taken to ICU. He was initially intubated, but patient self extubated when he became responsive. He is currently on supplemental oxygen with noctural bipap. Monitor urine output Manage pain with dilaudid prn Renal Stage 3 CKD, baseline creat 1.1, currently bun/creat 94/5.2 PIYUSH in the setting of severe sepsis and scrotal abscess/infection on sodium bicar/d5 @ 100cc/hr Monitor whiting output. renal following, noted reviewed. Endocrine: Diabetes/type II DM novolog ss, bgms Card: Hypertension, with episodes of hypotension hold cardiac meds if systolic <100, heart rate <60 CAD, history of stents, Hyperlipidemia continue statin therapy lipid panel reviewed cardiology following fen npo monitor electrolytes prophy heparin tid Visit type - Emergency Visit Emergency Visit: Yes ED Registration Date: 07/07/18 Care time: The patient presented to the Emergency Department on the above date and was hospitalized for further evaluation of their emergent condition. - New Patient This patient is new to me today: No - Critical Care Critical Care patient: Yes Total Critical Care Time (in minutes): 50 Critical Care Statement: The care of this patient involved high complexity decision making to prevent further life threatening deterioration of the patient 's condition and/or to evaluate & treat vital organ system(s) failure or risk of failure. - Discharge Referral Referred to [facility] No
[2018-07-09] MEDS: MUPIROCIN 2% TOPICAL OINTMENT FOR DECOLONIZATION NS SCH ×2 (10:09→21:43)
[2018-07-09] MEDS ORDERED: PT OWN MED DRAWER 7, Y5N ONE ×2 (10:30→22:20)
[2018-07-09] MEDS: NICOTINE 14 MG/24 HOURS TOPICAL PATCH TD SCH (10:31)
[2018-07-09] MEDS: FOLIC ACID 1 MG TABLET (FP) PO SCH (10:32)
[2018-07-09] MEDS: THIAMINE HCL 100 MG TABLET (FP) PO SCH (10:32)
[2018-07-09] MEDS: CARVEDILOL 25 MG TABLET (FP) PO SCH ×2 (10:33→21:42)
--- NOTE | 2018-07-09 12:45 | PN ---
Progress Note (short form) - Note Progress Note: Anesthesiology Post Pt seen, remains in ICU s/p spinal 07/07/18 for debridement scrotal infection; code. Pt resting comfortably with RACHELE appliance. No pressors 100/46 100% 69HR. Pt continues to improve. Jacoby Valdovinos M.D.
[2018-07-09 14:26] LABS: ARTERIAL BLOOD GAS BASE EXCESS -2.9 meq/l (-2-2); ARTERIAL BLOOD GAS PCO2 37.3 mmHg (35-45); ARTERIAL BLOOD GAS PO2 105 mmHg (80-105); ARTERIAL BLOOD GAS pH 7.37 (7.35-7.45)
--- NOTE | 2018-07-09 14:36 | PN ---
Progress Note, Physician History of Present Illness: comfortable on nasal canula awaiting for wound care change - Current Medication List Current Medications: Active Medications Acetaminophen (Tylenol -) 650 mg PO Q6H PRN PRN Reason: Pain Level 4-10 Albuterol/Ipratropium (Duoneb -) 1 amp NEB Q4H PRN PRN Reason: SHORTNESS OF BREATH Last Admin: 07/09/18 07:25 Dose: 1 amp Carvedilol (Coreg -) 25 mg PO BID [facility] Last Admin: 07/09/18 10:33 Dose: 25 mg Chlorhexidine Gluconate (Hibiclens For Decolonization -) 1 applic TP HS [facility] Last Admin: 07/08/18 21:59 Dose: 1 applic Folic Acid (Folic Acid -) 1 mg PO DAILY [facility] Last Admin: 07/09/18 10:32 Dose: 1 mg Heparin Sodium (Porcine) (Heparin -) 5,000 unit SQ TID [facility] Last Admin: 07/09/18 13:34 Dose: 5,000 unit Clindamycin Phosphate (Cleocin 600 Mg Premix Ivpb -) 600 mg in 50 mls @ 100 mls /hr IVPB Q8H-IV [facility]; Protocol Last Admin: 07/09/18 10:08 Dose: 100 mls/hr Piperacillin Sod/Tazobactam (Sod 2.25 gm/ Dextrose) 50 mls @ 100 mls/hr IVPB Q6H-IV [facility]; Protocol Last Admin: 07/09/18 14:30 Dose: 100 mls/hr Insulin Aspart (Novolog Vial Sliding Scale -) 1 vial SQ ACHS [facility]; Protocol Last Admin: 07/09/18 12:00 Dose: 4 unit Morphine Sulfate (Morphine Sulfate) 4 mg IVPUSH Q4H PRN PRN Reason: Pain Level 7 - 10 BREAKTHROUGH Last Admin: 07/09/18 14:30 Dose: 4 mg Mupirocin (Bactroban Ointment (For Decolonization) -) 1 applic NS BID [facility] Stop: 07/12/18 21:59 Last Admin: 07/09/18 10:09 Dose: 1 applic Nicotine (Nicoderm Patch -) 14 mg TD DAILY [facility] Last Admin: 07/09/18 10:31 Dose: 14 mg Oxycodone HCl (Roxicodone -) 5 mg PO Q6H PRN PRN Reason: Pain Level 7 - 10 BREAKTHROUGH Rosuvastatin Calcium (Crestor -) 40 mg PO HS [facility] Last Admin: 07/08/18 21:09 Dose: Not Given Thiamine HCl (Vitamin B1 -) 100 mg PO DAILY [facility] Last Admin: 07/09/18 10:32 Dose: 100 mg - Objective Vital Signs: Vital Signs Temperature 97.6 F 07/09/18 06:00 Pulse Rate 82 07/09/18 08:34 Respiratory Rate 25 H 07/09/18 06:00 Blood Pressure 130/54 L 07/09/18 06:00 O2 Sat by Pulse Oximetry (%) 99 07/09/18 09:00 Constitutional: Yes: No Distress, Calm Cardiovascular: Yes: Regular Rate and Rhythm Respiratory: Yes: Regular, CTA Bilaterally Gastrointestinal: Yes: Soft, Hypoactive Bowel Sounds Musculoskeletal: Yes: WNL Extremities: Yes: Other Wound/Incision: Yes: Other (dressing present) Neurological: Yes: Alert, Oriented Psychiatric: Yes: Alert, Oriented Labs: CBC, BMP 07/09/18 05:30 07/09/18 05:30 INR, PTT INR 1.15 (0.83-1.09) H 07/08/18 06:30 Assessment/Plan Problem List - Problems (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 (2) Perineal pain Code(s): R10.2 - PELVIC AND PERINEAL PAIN (3) Scrotal pain Code(s): N50.82 - SCROTAL PAIN (4) CKD (chronic kidney disease) stage 3, GFR 30-59 ml/min Code(s): N18.3 - CHRONIC KIDNEY DISEASE, STAGE 3 (MODERATE) (5) BPH (benign prostatic hyperplasia) Code(s): N40.0 - BENIGN PROSTATIC HYPERPLASIA WITHOUT LOWER URINRY TRACT SYMP Qualifiers: Lower urinary tract symptom presence: unspecified whether lower urinary tract symptoms present Qualified Code(s): N40.0 - Benign prostatic hyperplasia without lower urinary tract symptoms (6) Coronary artery disease Code(s): I25.10 - ATHSCL HEART DISEASE OF [place] CORONARY ARTERY W/O ANG PCTRS Qualifiers: Coronary Disease-Associated Artery/Lesion type: [place] artery [place] vs. transplanted heart: [place] heart Associated angina: without angina Qualified Code(s): I25.10 - Atherosclerotic heart disease of [place] coronary artery without angina pectoris (7) Hyperlipidemia Code(s): E78.5 - HYPERLIPIDEMIA, UNSPECIFIED Qualifiers: Hyperlipidemia type: unspecified Qualified Code(s): E78.5 - Hyperlipidemia , unspecified (8) Hypertension Code(s): I10 - ESSENTIAL (PRIMARY) HYPERTENSION Qualifiers: Hypertension type: essential hypertension Qualified Code(s): I10 - Essential (primary) hypertension (9) Diabetes mellitus type 2 in obese Code(s): E11.69 - TYPE 2 DIABETES MELLITUS WITH OTHER SPECIFIED COMPLICATION; E66.9 - OBESITY, UNSPECIFIED (10) Tobacco dependence due to cigarettes Assessment/Plan: nicotine patch in use Code(s): F17.210 - NICOTINE DEPENDENCE, CIGARETTES, UNCOMPLICATED 11 cardiac arrest plan will continue abx cx reports noted still awaiting other organisms and sensitivites close watch on the patient resp support wound care rest as per surgery cc 40 min
[2018-07-09 14:55] LABS: ALLENS TEST POSITIVE
[2018-07-09] MEDS ORDERED: HYDROmorphone HCl 2 MG/ML VIAL IVPUSH ONE (15:14)
--- NOTE | 2018-07-09 17:01 | PN ---
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 Seen and examined in ICU, family present. s/p code in PACU, thought to be possible primary respiratory event, and had ROSC after rounds of ACLS and attempted intubation with self-extubation, and has been subsequently awake and aware. Using BiPAP overnight and daytime when needed ; family brought in CPAP from home. Pt states having some pain but somewhat better overall. Parson in place with light/clear yellow urine in bag. Pt still feeling dry of mouth, thirsty, taking sparing ice chips. Dressing had been reinforced by nursing for seepage/drainage soaking through. No BM yet or urge to go. ICU placed CVC and a-line. Creatinine still in 5 range, seen by nephrology; also seen by cardio and ID. - Current Medication List Current Medications: Active Medications Acetaminophen (Tylenol -) 650 mg PO Q6H PRN PRN Reason: Pain Level 4-10 Albuterol/Ipratropium (Duoneb -) 1 amp NEB Q4H PRN PRN Reason: SHORTNESS OF BREATH Last Admin: 07/09/18 15:19 Dose: 1 amp Carvedilol (Coreg -) 25 mg PO BID [facility] Last Admin: 07/09/18 10:33 Dose: 25 mg Chlorhexidine Gluconate (Hibiclens For Decolonization -) 1 applic TP HS [facility] Last Admin: 07/08/18 21:59 Dose: 1 applic Folic Acid (Folic Acid -) 1 mg PO DAILY [facility] Last Admin: 07/09/18 10:32 Dose: 1 mg Heparin Sodium (Porcine) (Heparin -) 5,000 unit SQ TID [facility] Last Admin: 07/09/18 13:34 Dose: 5,000 unit Hydromorphone HCl (Dilaudid -) 4 mg PO Q4H PRN PRN Reason: PAIN LEVEL 7 - 10 Clindamycin Phosphate (Cleocin 600 Mg Premix Ivpb -) 600 mg in 50 mls @ 100 mls /hr IVPB Q8H-IV [facility]; Protocol Last Admin: 07/09/18 10:08 Dose: 100 mls/hr Piperacillin Sod/Tazobactam (Sod 2.25 gm/ Dextrose) 50 mls @ 100 mls/hr IVPB Q6H-IV [facility]; Protocol Last Admin: 07/09/18 14:30 Dose: 100 mls/hr Sodium Bicarbonate 150 meq/ (Dextrose) 1,150 mls @ 100 mls/hr IV Q11H [facility] Stop: 07/12/18 15:44 Insulin Aspart (Novolog Vial Sliding Scale -) 1 vial SQ ACHS [facility]; Protocol Last Admin: 07/09/18 12:00 Dose: 4 unit Morphine Sulfate (Morphine Sulfate) 4 mg IVPUSH Q4H PRN PRN Reason: Pain Level 7 - 10 BREAKTHROUGH Last Admin: 07/09/18 14:30 Dose: 4 mg Mupirocin (Bactroban Ointment (For Decolonization) -) 1 applic NS BID [facility] Stop: 07/12/18 21:59 Last Admin: 07/09/18 10:09 Dose: 1 applic Nicotine (Nicoderm Patch -) 14 mg TD DAILY [facility] Last Admin: 07/09/18 10:31 Dose: 14 mg Oxycodone HCl (Roxicodone -) 5 mg PO Q6H PRN PRN Reason: Pain Level 7 - 10 BREAKTHROUGH Rosuvastatin Calcium (Crestor -) 40 mg PO HS [facility] Last Admin: 07/08/18 21:09 Dose: Not Given Thiamine HCl (Vitamin B1 -) 100 mg PO DAILY [facility] Last Admin: 07/09/18 10:32 Dose: 100 mg - Objective Vital Signs: Vital Signs Temperature 98.5 F 07/09/18 15:48 Pulse Rate 82 07/09/18 15:48 Respiratory Rate 22 H 07/09/18 15:48 Blood Pressure 107/61 07/09/18 15:48 O2 Sat by Pulse Oximetry (%) 99 07/09/18 09:00 Vital Signs Period Temp Pulse Resp BP Sys/Ramos Pulse Ox Last 24 Hr 97.4 F-98.7 F 75-88 22-26 96-130/46-62 98-100 CVP ranging 6-11 recently Constitutional: Yes: No Distress, Calm, Obese Eyes: Yes: Conjunctiva Clear, EOM Intact, Ptosis (bilat) HENT: Yes: Atraumatic, Normocephalic Respiratory: Yes: On Nasal O2 (but mostly mouth-breathing) Gastrointestinal: Yes: Soft, Abdomen, Obese. No: Tenderness (except low near operative area) Genitourinary: Yes: Parson Present. No: Hematuria Extremities: No: Cool, Cyanosis Integumentary: Yes: Incision (perineal wound dressed). No: Jaundice, Rash Wound/Incision: Yes: Sutures Intact (holding together scrotal pocket for testes) , Dressing Dry and Intact (intact/reinforced but inner pads wet), Dressing Removed, Draining (weeping/pads wet with serous fluid, some serosang drainage on deepest kerlix packing in perirectal area), Unapproximated (large perineal and right perirectal wound; residual scrotal skin tacked into pocket for preservation of testicles, one spot at left side open enough to see white tissue /tunica? through/between tissues - saline-damp gauze tucked into this site and tissue tucked farther in behind skin edges; wound packing all removed - most of wound base is clean and weeping serous fluid; areas of skin margin at posterior right perirectal pocket and a few other edges appear dusky, but most surrounding skin is now clean; no significant redness or induration around wound ; perianal area is somewhat pink/reddened and moist/macerated, but no stool present; deep in right perirectal area there is still some brown/dark stringy tissue, but no jonah purulence or necrosis; saline-damp Kerlix rolls x2 packed into all areas of wound and tucked up behind into end of scrotal pocket - covered with ABD pads and secured with 3" silk tape) Neurological: Yes: Alert, Oriented Labs: CBC, BMP 07/09/18 05:30 07/09/18 05:30 CMP Sodium 139 mmol/L (136-145) 07/09/18 05:30 Potassium 4.5 mmol/L (3.5-5.1) 07/09/18 05:30 Chloride 108 mmol/L (98-107) H 07/09/18 05:30 Carbon Dioxide 21 mmol/L (21-32) 07/09/18 05:30 Anion Gap 10 MMOL/L (8-16) 07/09/18 05:30 BUN 94 mg/dL (7-18) H 07/09/18 05:30 Creatinine 5.2 mg/dL (0.55-1.3) H 07/09/18 05:30 Creat Clearance w eGFR 10.99 (>60) 07/09/18 05:30 POC Glucometer 199 UNITS (80-120) 07/09/18 17:12 Random Glucose 190 mg/dL (74-106) H 07/09/18 05:30 Hemoglobin A1c % 8.5 % (4.2-6.3) H 07/08/18 05:30 Lactic Acid 1.0 mmol/L (0.4-2.0) 07/08/18 11:40 Calcium 7.8 mg/dL (8.5-10.1) L 07/09/18 05:30 Phosphorus 7.2 mg/dL (2.5-4.9) H 07/08/18 05:30 Magnesium 2.4 mg/dL (1.8-2.4) 07/09/18 05:30 Total Bilirubin 0.2 mg/dL (0.2-1) 07/09/18 05:30 AST 150 U/L (15-37) H 07/09/18 05:30 ALT 132 U/L (13-61) H 07/09/18 05:30 Alkaline Phosphatase 108 U/L (45-117) 07/09/18 05:30 Creatine Kinase 447 U/L (26-308) H 07/08/18 05:30 Creatine Kinase Index 0.8 % (0.0-5.0) 07/08/18 05:30 CK-MB (CK-2) 3.6 ng/mL (0.5-3.6) 07/08/18 05:30 Troponin I 0.13 ng/ml (0.00-0.05) H 07/08/18 05:30 C-Reactive Protein 44.6 MG/DL (0.00-0.3) H 07/07/18 09:30 Total Protein 4.8 g/dl (6.4-8.2) L 07/09/18 05:30 Albumin 1.6 g/dl (3.4-5.0) L 07/09/18 05:30 Triglycerides 172 mg/dL (0-150) H 07/08/18 05:30 Cholesterol 54 mg/dL (50-200) 07/08/18 05:30 Total LDL Cholesterol 16 mg/dL (5-100) 03/23/19 05:30 HDL Cholesterol 8 mg/dL (40-60) L 07/08/18 05:30 Microbiology 07/07/18 09:30 Blood Culture - Preliminary Blood - Peripheral Venous NO GROWTH OBTAINED AFTER 48 HOURS, INCUBATION TO CONTINUE FOR 3 DAYS. 07/07/18 09:20 Blood Culture - Preliminary Blood - Peripheral Venous NO GROWTH OBTAINED AFTER 48 HOURS, INCUBATION TO CONTINUE FOR 3 DAYS. 07/07/18 16:35 Gram Stain - Final Tissue-Other Tissue Culture - Preliminary Non Lactose Fermenting Gnb Group D Strep Or Entero Coccus 07/07/18 16:32 Gram Stain - Final Wound Wound Culture - Preliminary Non Lactose Fermenting Gnb Group D Strep Or Entero Coccus Alpha Hemolytic Streptococcus Problem List - Problems (1) Nika's gangrene Assessment/Plan: POD2 s/p wide local debridement of skin/subcu/fascia/muscle from scrotum/ perineum/right perirectal area (~600cm2) with packing, testes tucked into scrotal skin pocket loosely created by urology, Parson placed and left NPO/generous IV hydration - nephrology on board on bicarb drip but no maintenance fluids more insensible losses than may be apparent - pt still thirsty, dry mouth, weeping from open wound recommend increasing IV fluid intake IV antibiotics Clinda and Zosyn per ID pain meds prn f/u cultures pending dressing changed with Davi Guzmán HAIR AND MAKEUP DESIGNER of primary team, nursing and a family member - wound overall fairly clean, no purulence or jonah necrosis noted, though there are still a few dusky areas of skin flaps and a little dark deep tissue in right perirectal area will ask urology about slight open area of scrotal pocket where white tissue is visible - ?if needs extra stitch or just gauze packing to keep testes up in pocket no stool/BMs yet, but expect he will eventually resume bowel function CPAP brought from home - have checked by biomed and recommend allowing pt to use his own mask for therapy (he uses it regularly at home) Given his underlying comorbidities as well as postop arrest, patient would likely benefit from transfer to tertiary center while stable, as he most likely will need diversion of colon/intestine to allow healing of wound site, as well as complex wound care and reconstructive options from plastic surgery and urology. Will pursue possible transfer to [place] where pt is known from his previous cardiac stents and inguinal hernia surgery in the past. Seen and discussed with Davi Guzmán. This patient is critically ill. Time spent reviewing chart, examining patient, talking with providers and/or family and documentation is 60 minutes. Code(s): N49.3 - NIKA GANGRENE (2) Perineal pain Code(s): R10.2 - PELVIC AND PERINEAL PAIN (3) Scrotal pain Code(s): N50.82 - SCROTAL PAIN (4) CKD (chronic kidney disease) stage 3, GFR 30-59 ml/min Code(s): N18.3 - CHRONIC KIDNEY DISEASE, STAGE 3 (MODERATE) (5) BPH (benign prostatic hyperplasia) Code(s): N40.0 - BENIGN PROSTATIC HYPERPLASIA WITHOUT LOWER URINRY TRACT SYMP Qualifiers: Lower urinary tract symptom presence: unspecified whether lower urinary tract symptoms present Qualified Code(s): N40.0 - Benign prostatic hyperplasia without lower urinary tract symptoms (6) Coronary artery disease Code(s): I25.10 - ATHSCL HEART DISEASE OF [place] CORONARY ARTERY W/O ANG PCTRS Qualifiers: Coronary Disease-Associated Artery/Lesion type: [place] artery [place] vs. transplanted heart: [place] heart Associated angina: without angina Qualified Code(s): I25.10 - Atherosclerotic heart disease of [place] coronary artery without angina pectoris (7) Hyperlipidemia Code(s): E78.5 - HYPERLIPIDEMIA, UNSPECIFIED Qualifiers: Hyperlipidemia type: unspecified Qualified Code(s): E78.5 - Hyperlipidemia , unspecified (8) Hypertension Code(s): I10 - ESSENTIAL (PRIMARY) HYPERTENSION Qualifiers: Hypertension type: essential hypertension Qualified Code(s): I10 - Essential (primary) hypertension (9) Diabetes mellitus type 2 in obese Code(s): E11.69 - TYPE 2 DIABETES MELLITUS WITH OTHER SPECIFIED COMPLICATION; E66.9 - OBESITY, UNSPECIFIED (10) Tobacco dependence due to cigarettes Code(s): F17.210 - NICOTINE DEPENDENCE, CIGARETTES, UNCOMPLICATED
--- NOTE | 2018-07-09 17:11 | PN ---
Progress Note, Physician History of Present Illness: Pt seen and examined at bedside. He is more awake and responsive today. He remain on bipap. - Current Medication List Current Medications: Active Medications Acetaminophen (Tylenol -) 650 mg PO Q6H PRN PRN Reason: Pain Level 4-10 Albuterol/Ipratropium (Duoneb -) 1 amp NEB Q4H PRN PRN Reason: SHORTNESS OF BREATH Last Admin: 07/09/18 15:19 Dose: 1 amp Carvedilol (Coreg -) 25 mg PO BID [facility] Last Admin: 07/09/18 10:33 Dose: 25 mg Chlorhexidine Gluconate (Hibiclens For Decolonization -) 1 applic TP HS [facility] Last Admin: 07/08/18 21:59 Dose: 1 applic Folic Acid (Folic Acid -) 1 mg PO DAILY [facility] Last Admin: 07/09/18 10:32 Dose: 1 mg Heparin Sodium (Porcine) (Heparin -) 5,000 unit SQ TID [facility] Last Admin: 07/09/18 13:34 Dose: 5,000 unit Hydromorphone HCl (Dilaudid -) 4 mg PO Q4H PRN PRN Reason: PAIN LEVEL 7 - 10 Clindamycin Phosphate (Cleocin 600 Mg Premix Ivpb -) 600 mg in 50 mls @ 100 mls /hr IVPB Q8H-IV [facility]; Protocol Last Admin: 07/09/18 10:08 Dose: 100 mls/hr Piperacillin Sod/Tazobactam (Sod 2.25 gm/ Dextrose) 50 mls @ 100 mls/hr IVPB Q6H-IV [facility]; Protocol Last Admin: 07/09/18 14:30 Dose: 100 mls/hr Sodium Bicarbonate 150 meq/ (Dextrose) 1,150 mls @ 100 mls/hr IV Q11H [facility] Stop: 07/12/18 15:44 Insulin Aspart (Novolog Vial Sliding Scale -) 1 vial SQ ACHS [facility]; Protocol Last Admin: 07/09/18 12:00 Dose: 4 unit Morphine Sulfate (Morphine Sulfate) 4 mg IVPUSH Q4H PRN PRN Reason: Pain Level 7 - 10 BREAKTHROUGH Last Admin: 07/09/18 14:30 Dose: 4 mg Mupirocin (Bactroban Ointment (For Decolonization) -) 1 applic NS BID [facility] Stop: 07/12/18 21:59 Last Admin: 07/09/18 10:09 Dose: 1 applic Nicotine (Nicoderm Patch -) 14 mg TD DAILY [facility] Last Admin: 07/09/18 10:31 Dose: 14 mg Oxycodone HCl (Roxicodone -) 5 mg PO Q6H PRN PRN Reason: Pain Level 7 - 10 BREAKTHROUGH Rosuvastatin Calcium (Crestor -) 40 mg PO HS [facility] Last Admin: 07/08/18 21:09 Dose: Not Given Thiamine HCl (Vitamin B1 -) 100 mg PO DAILY [facility] Last Admin: 07/09/18 10:32 Dose: 100 mg - Objective Vital Signs: Vital Signs Temperature 98.5 F 07/09/18 15:48 Pulse Rate 82 07/09/18 15:48 Respiratory Rate 22 H 07/09/18 15:48 Blood Pressure 107/61 07/09/18 15:48 O2 Sat by Pulse Oximetry (%) 99 07/09/18 09:00 Constitutional: Yes: Calm Eyes: Yes: Conjunctiva Clear HENT: Yes: Atraumatic Cardiovascular: Yes: S1, S2 Respiratory: Yes: On BiPap Gastrointestinal: Yes: Soft, Abdomen, Obese Genitourinary: Yes: Parson Present Musculoskeletal: Yes: WNL Edema: Yes Edema: LLE: Trace, RLE: Trace Neurological: Yes: Oriented Psychiatric: Yes: Oriented Labs: CBC, BMP 07/09/18 05:30 07/09/18 05:30 INR, PTT INR 1.15 (0.83-1.09) H 07/08/18 06:30 Problem List - Problems (1) Acute kidney injury superimposed on CKD Code(s): N17.9 - ACUTE KIDNEY FAILURE, UNSPECIFIED; N18.9 - CHRONIC KIDNEY DISEASE, UNSPECIFIED (2) Diabetes mellitus type 2 in obese Code(s): E11.69 - TYPE 2 DIABETES MELLITUS WITH OTHER SPECIFIED COMPLICATION; E66.9 - OBESITY, UNSPECIFIED (3) Diabetes Code(s): E11.9 - TYPE 2 DIABETES MELLITUS WITHOUT COMPLICATIONS Qualifiers: Diabetes mellitus type: type 2 Diabetes mellitus complication status: with circulatory complication Diabetes mellitus complication detail: with peripheral angiopathy without gangrene Qualified Code(s): E11.51 - Type 2 diabetes mellitus with diabetic peripheral angiopathy without gangrene (4) FSGS (focal segmental glomerulosclerosis) Code(s): N05.1 - UNSP NEPH SYNDROME W FOCAL AND SEGMENTAL GLOMERULAR LESIONS (5) Hypertension Code(s): I10 - ESSENTIAL (PRIMARY) HYPERTENSION Qualifiers: Hypertension type: essential hypertension Qualified Code(s): I10 - Essential (primary) hypertension Assessment/Plan Current Medications Generic Name Dose Route Start Last Admin Trade Name Freq PRN Reason Stop Dose Admin Acetaminophen 650 mg 07/07/18 20:35 Tylenol - PO Q6H PRN Pain Level 4-10 Albuterol/Ipratropium 1 amp 07/08/18 08:54 07/09/18 15:19 Duoneb - NEB 1 amp Q4H PRN Administration SHORTNESS OF BREATH Carvedilol 25 mg 07/07/18 22:00 07/09/18 10:33 Coreg - PO 25 mg BID [facility] Administration Chlorhexidine Gluconate 1 applic 07/07/18 22:00 07/08/18 21:59 Hibiclens For Decolonization - TP 1 applic HS [facility] Administration Folic Acid 1 mg 07/08/18 10:00 07/09/18 10:32 Folic Acid - PO 1 mg DAILY [facility] Administration Heparin Sodium (Porcine) 5,000 unit 07/07/18 22:00 07/09/18 13:34 Heparin - SQ 5,000 unit TID [facility] Administration Hydromorphone HCl 4 mg 07/09/18 16:09 Dilaudid - PO Q4H PRN PAIN LEVEL 7 - 10 Clindamycin Phosphate 600 mg in 50 mls @ 100 mls/hr 07/08/18 02:00 07/09/18 10:08 Cleocin 600 Mg Premix Ivpb - IVPB 100 mls/hr Q8H-IV [facility] Administration Protocol Piperacillin Sod/Tazobactam 50 mls @ 100 mls/hr 07/07/18 21:00 07/09/18 14:30 Sod 2.25 gm/ Dextrose IVPB 100 mls/hr Q6H-IV [facility] Administration Protocol Sodium Bicarbonate 150 meq/ 1,150 mls @ 100 mls/hr 07/09/18 15:45 Dextrose IV 07/12/18 15:44 Q11H [facility] Insulin Aspart 1 vial 07/07/18 22:00 07/09/18 12:00 Novolog Vial Sliding Scale - SQ 4 unit ACHS [facility] Administration Protocol Morphine Sulfate 4 mg 07/07/18 20:35 07/09/18 14:30 Morphine Sulfate IVPUSH 4 mg Q4H PRN Administration Pain Level 7 - 10 BREAKTHROUGH Mupirocin 1 applic 07/07/18 22:00 07/09/18 10:09 Bactroban Ointment (For Decolonization) - NS 07/12/18 21:59 1 applic BID [facility] Administration Nicotine 14 mg 07/08/18 10:00 07/09/18 10:31 Nicoderm Patch - TD 14 mg DAILY [facility] Administration Oxycodone HCl 5 mg 07/07/18 20:35 Roxicodone - PO Q6H PRN Pain Level 7 - 10 BREAKTHROUGH Rosuvastatin Calcium 40 mg 07/07/18 22:00 07/08/18 21:09 Crestor - PO Not Given HS [facility] Thiamine HCl 100 mg 07/08/18 10:00 07/09/18 10:32 Vitamin B1 - PO 100 mg DAILY [facility] Administration Impression 1. CKD with hx of FSGS 2. PVD 3. DM 4. HTN 5. hyperlipidemia 6. BPH 7. CAD 8. fourniers gangrene 9. PIYUSH 10. cardiac arrest Plan - cont to monitor renal function - cont fluids - cont bipap as needed - surgery follow up - discussed with ICU - hold diuretics for now - discussed with family
[2018-07-09] MEDS: CHLORHEXIDINE GLUCONATE 4% CLEANSER FOR DECOLONIZATION TP SCH (21:43)
[2018-07-09] MEDS: ROSUVASTATIN CA 20 MG TABLET (FP) PO SCH (22:21)
--- NOTE | 2018-07-09 23:52 | EKG ---
Test Reason : Blood Pressure : / mmHG Vent. Rate : 111 BPM Atrial Rate : 111 BPM P-R Int : 000 ms QRS Dur : 162 ms QT Int : 394 ms P-R-T Axes : 000 040 059 degrees QTc Int : 535 ms SINUS TACHYCARDIA LEFT BUNDLE BRANCH BLOCK ABNORMAL ECG WHEN COMPARED WITH ECG OF 07-JUL-2018 09:46, HEART RATE HAS INCREASED BY 16 BPM Confirmed by VERITO BECERRA MD ([id number]) on 07/09/2018 11:52:02 PM Referred By: Confirmed By:VERITO BECERRA MD
[2018-07-10] MEDS ORDERED: DEXTROSE 5%-WATER - 50 ML IVPB ONE ×2 (02:23→08:39)
[2018-07-10] MEDS ORDERED: PIPERACILLIN/TAZOBACTAM 2.25 GM VIAL IVPB ONE ×2 (02:23→08:39)
[2018-07-10] MEDS: CLINDAMYCIN 600MG PREMIX IVPB 600 MG/50 ML BAG IVPB SCH ×2 (02:26→09:15)
[2018-07-10] MEDS: PIPERACILLIN/TAZOB 2.25 GM 2.25 GM in DEXTROSE 5%-WATER - 50 ML IVPB SCH ×2 (02:26→09:15)
[2018-07-10] MEDS: SODIUM BICARBONATE 8.4% - 150 MEQ in DEXTROSE 5%-WATER - 1,000 ML IV SCH (05:43)
[2018-07-10] MEDS: HEPARIN NA (PORCINE) 5,000 UNITS/ML 1ML VIAL SQ SCH (05:52)
[2018-07-10] MEDS: INSULIN SLIDING SCALE (NOVOLOG) 1 VIAL SQ SCH ×2 (05:53→10:54)
[2018-07-10 06:38] LABS: ALBUMIN 1.5 g/dl (3.4-5.0); ALK PHOS 112 U/L (45-117); ANION GAP 7 MMOL/L (8-16); BILIRUBIN,TOTAL 0.3 mg/dL (0.2-1); BLOOD UREA NITROGEN 90 mg/dL (7-18); CALCIUM 8.1 mg/dL (8.5-10.1); CHLORIDE 106 mmol/L (98-107); CO2 27 mmol/L (21-32); CREATININE 4.6 mg/dL (0.55-1.3); GLUCOSE,RANDOM 195 mg/dL (74-106); MAGNESIUM 2.6 mg/dL (1.8-2.4); PHOSPHOROUS 6.7 mg/dL (2.5-4.9); POTASSIUM 4.6 mmol/L (3.5-5.1); SGOT/AST 87 U/L (15-37); SGPT/ALT 143 U/L (13-61); SODIUM 140 mmol/L (136-145); TOT PROT 4.9 g/dl (6.4-8.2)
[2018-07-10 06:40] LABS: BASO % 0.2 % (0-2.0); EOS % 2.9 % (0-4.5); HEMATOCRIT 34.6 % (35.4-49); HEMOGLOBIN 11.9 GM/dL (11.7-16.9); LYMPH % 5.8 % (8-40); MCHC 34.5 g/dl (32.0-35.9); MEAN CELL VOLUME 92.7 fl (80-96); MEAN PLT VOLUME 9.2 fl (7.5-11.1); MONO % 4.8 % (3.8-10.2); NEUT % 86.3 % (42.8-82.8); PLATELET COUNT 249 K/MM3 (134-434); RBC 3.73 M/mm3 (4.00-5.60); RDW 14.7 % (11.9-15.9); WHITE BLOOD COUNT 12.3 K/mm3 (4.0-10.0)
[2018-07-10] MEDS: ALBUTEROL SO4 2.5/IPRATROPIUM 0.5 INH SOL 3 ML VIAL.NEB. NEB PRN (07:30)
--- NOTE | 2018-07-10 07:30 | PN ---
Physical Exam: SUBJECTIVE: Patient seen and examined. Reported mild pain. OBJECTIVE: Vital Signs Period Temp Pulse Resp BP Sys/Ramos Pulse Ox Last 24 Hr 97.5 F-98.6 F 75-87 20-24 91-129/46-62 99-99 GENERAL: The patient is awake, alert, and fully oriented, in no acute distress. HEAD: Normal with no signs of trauma. EYES: PERRL, extraocular movements intact, sclera anicteric, conjunctiva clear. No ptosis. ENT: Ears normal, nares patent, oropharynx clear without exudates, moist mucous membranes. NECK: Trachea midline, full range of motion, supple. LUNGS: Breath sounds equal, clear to auscultation bilaterally, no wheezes, no crackles, no accessory muscle use. HEART: Regular rate and rhythm, S1, S2 without murmur, rub or gallop. ABDOMEN: Soft, nontender, nondistended, normoactive bowel sounds, no guarding, no rebound, no hepatosplenomegaly, no masses. EXTREMITIES: 2+ pulses, warm, well-perfused, no edema. NEUROLOGICAL: Cranial nerves II through XII grossly intact. Normal speech, gait not observed. PSYCH: Normal mood, normal affect. SKIN: Warm, dry. left heel ulcer. : deferred. Laboratory Results - last 24 hr 07/09/18 07/09/18 07/09/18 11:58 14:14 17:12 Anticoagulation Therapy No Result Required. Puncture Site Right radial ABG pH 7.37 ABG pCO2 at Pt Temp 37.3 ABG pO2 at Pt Temp 105 ABG HCO3 21.3 L ABG O2 Sat (Measured) 97.0 ABG O2 Content 22.7 H ABG Base Excess -2.9 L Dashawn Test Positive O2 Delivery Device No Result Required. Oxygen Flow Rate Yes Vent Mode S/t Vent Rate No Result Required. Mechanical Rate No Result Required. Pressure Support Vent 18/8 Sodium Potassium Chloride Carbon Dioxide Anion Gap BUN Creatinine Creat Clearance w eGFR POC Glucometer 217 199 Random Glucose Calcium Phosphorus Magnesium Total Bilirubin AST ALT Alkaline Phosphatase Total Protein Albumin 07/09/18 07/10/18 07/10/18 21:41 05:30 05:46 Anticoagulation Therapy Puncture Site ABG pH ABG pCO2 at Pt Temp ABG pO2 at Pt Temp ABG HCO3 ABG O2 Sat (Measured) ABG O2 Content ABG Base Excess Dashawn Test O2 Delivery Device Oxygen Flow Rate Vent Mode Vent Rate Mechanical Rate Pressure Support Vent Sodium 140 Potassium 4.6 Chloride 106 Carbon Dioxide 27 Anion Gap 7 L BUN 90 H Creatinine 4.6 H Creat Clearance w eGFR 12.66 POC Glucometer 179 174 Random Glucose 195 H Calcium 8.1 L Phosphorus 6.7 H Magnesium 2.6 H Total Bilirubin 0.3 AST 87 H ALT 143 H Alkaline Phosphatase 112 Total Protein 4.9 L Albumin 1.5 L Active Medications Generic Name Dose Route Start Last Admin Trade Name Freq PRN Reason Stop Dose Admin Acetaminophen 650 mg 07/07/18 20:35 Tylenol - PO Q6H PRN Pain Level 4-10 Albuterol/Ipratropium 1 amp 07/08/18 08:54 07/09/18 15:19 Duoneb - NEB 1 amp Q4H PRN Administration SHORTNESS OF BREATH Carvedilol 25 mg 07/07/18 22:00 07/09/18 21:42 Coreg - PO 25 mg BID [facility] Administration Chlorhexidine Gluconate 1 applic 07/07/18 22:00 07/09/18 21:43 Hibiclens For Decolonization - TP 1 applic HS [facility] Administration Folic Acid 1 mg 07/08/18 10:00 07/09/18 10:32 Folic Acid - PO 1 mg DAILY [facility] Administration Heparin Sodium (Porcine) 5,000 unit 07/07/18 22:00 07/10/18 05:52 Heparin - SQ 5,000 unit TID [facility] Administration Hydromorphone HCl 4 mg 07/09/18 16:09 07/10/18 03:08 Dilaudid - PO 4 mg Q4H PRN Administration PAIN LEVEL 7 - 10 Clindamycin Phosphate 600 mg in 50 mls @ 100 mls/hr 07/08/18 02:00 07/10/18 02:26 Cleocin 600 Mg Premix Ivpb - IVPB 100 mls/hr Q8H-IV [facility] Administration Protocol Piperacillin Sod/Tazobactam 50 mls @ 100 mls/hr 07/07/18 21:00 07/10/18 02:26 Sod 2.25 gm/ Dextrose IVPB 100 mls/hr Q6H-IV [facility] Administration Protocol Sodium Bicarbonate 150 meq/ 1,150 mls @ 100 mls/hr 07/09/18 15:45 07/10/18 05 :43 Dextrose IV 07/12/18 15:44 100 mls/hr Q11H [facility] Administration Insulin Aspart 1 vial 07/07/18 22:00 07/10/18 05:53 Novolog Vial Sliding Scale - SQ 2 unit ACHS [facility] Administration Protocol Morphine Sulfate 4 mg 07/07/18 20:35 07/09/18 14:30 Morphine Sulfate IVPUSH 4 mg Q4H PRN Administration Pain Level 7 - 10 BREAKTHROUGH Mupirocin 1 applic 07/07/18 22:00 07/09/18 21:43 Bactroban Ointment (For Decolonization) - NS 07/12/18 21:59 1 applic BID [facility] Administration Nicotine 14 mg 07/08/18 10:00 07/09/18 10:31 Nicoderm Patch - TD 14 mg DAILY [facility] Administration Oxycodone HCl 5 mg 07/07/18 20:35 Roxicodone - PO Q6H PRN Pain Level 7 - 10 BREAKTHROUGH Rosuvastatin Calcium 40 mg 07/07/18 22:00 07/09/18 22:21 Crestor - PO 40 mg HS [facility] Administration Thiamine HCl 100 mg 07/08/18 10:00 07/09/18 10:32 Vitamin B1 - PO 100 mg DAILY [facility] Administration ASSESSMENT/PLAN: NEURO -No AMS, continue to monitor CARDIOVASCULAR #HX HTN/HLD -On home Carvedilol 25 mg PO BID -On home Crestor 40 mg PO HS #PAD -L heel ulcer -Bactroban per Dr. Desir ENDO #HX DIABETES -Sliding scale ID #NEC/FASC FOURNIERS GANGRENE -S/P debridement 07/07 - Post op Day 3 -Zosyn per ID day 5 -Clindamycin per ID day 5 -Morphine 2 mg IV Q4H PRN Pain -Acetaminophen 650 mg PO Q6H PRN Pain -Acidemia -Bicarb drip PPX -Heparin 5000U SQ TID -No GI PPX FEN -Monitor electrolytes -NPO DISPO Transfer to [facility] Visit type - Emergency Visit Emergency Visit: Yes ED Registration Date: 07/07/18 Care time: The patient presented to the Emergency Department on the above date and was hospitalized for further evaluation of their emergent condition. - New Patient This patient is new to me today: Yes Date on this admission: 03/25/19 - Critical Care Critical Care patient: Yes Total Critical Care Time (in minutes): 35 Critical Care Statement: The care of this patient involved high complexity decision making to prevent further life threatening deterioration of the patient 's condition and/or to evaluate & treat vital organ system(s) failure or risk of failure. - Discharge Referral Referred to [id number] No
[2018-07-10 07:43] VITALS: PULSE 84
[2018-07-10] MEDS ORDERED: PT OWN MED DRAWER 7, Y5N ONE (09:21)
[2018-07-10] MEDS: CARVEDILOL 25 MG TABLET (FP) PO SCH (09:23)
[2018-07-10] MEDS: MUPIROCIN 2% TOPICAL OINTMENT FOR DECOLONIZATION NS SCH (09:23)
[2018-07-10] MEDS: FOLIC ACID 1 MG TABLET (FP) PO SCH (09:23)
[2018-07-10] MEDS: NICOTINE 14 MG/24 HOURS TOPICAL PATCH TD SCH (09:26)
[2018-07-10] MEDS: THIAMINE HCL 100 MG TABLET (FP) PO SCH (09:26)
--- NOTE | 2018-07-10 09:29 | OP ---
DATE OF OPERATION: 07/07/2018 DATE OF DICTATION: 07/07/2018 PRE-OP DIAGNOSIS Nika`s Gangrene, Sepsis. POST-OP DIAGNOSIS Nika`s Gangrene, Sepsis. SURGEONS PROCEDURE: Debridement of Nika`s Gangrene/Necrotizing Infection of perineum, crotum, right perirectal area; skin/ subcu/ fascia/ muscle tissue 600cm2 including debridement of scrotum and testicles by urology. Surgeon: Tashi Schmidt Assisting: Nikunj Olsen Anesthesiologist: Dea Griffiths Michael M. Assist / ASSISTANT MEDIA BUYER: Dawson Han. Patient is a 73-year-old male admitted via the emergency room with fever, chills and scrotal cellulitis with gangrene of base of the scrotum, perineum and the perianal area. 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 PROCEDURE: Urology performed the radical scrotal debridement and bilateral orchiopexies. General Surgery did the perineal and perirectal debridement. This will be dictated separately. Under general anesthesia patient is prepped and draped in the usual sterile manner. He is placed in an exaggerated dorsal lithotomy position. The base of the scrotum which appeared to be avascular with gangrenous patches at the base was excised hemiradically. A small strip of anterior tissue was left which had bleeding edges. Both testicles were isolated. The tunica vaginalis which appeared to be involved in the infection was excised from the right and left sides and left open. Tissue surrounding the corpora spongiosum and the urethra was excised. Deloculation was performed digitally into the right and left inguinal canals. The wound was copiously irrigated. General Surgery then performed the 2nd part of the debridement and packing. Prior to commencing the procedure a 16-[place] Parson was inserted and connected to a drainage bag. The testes were then pexied to the right upper inguinal region at the level of the external ring. The skin flaps of superficial scrotal tissue are approximated. An Iodoform-soaked packing with bacitracin was introduced into the scrotal area and this was continued into the perianal and perigluteal areas. The wound in the scrotum was secured with several stitches of 2-0 silk sutures for skin approximation and not closure. The patient tolerated the procedure well. After the surgical procedure he was sent to the ICU in stable condition. Arthur [id number]
--- NOTE | 2018-07-10 09:38 | PN ---
Physical Exam: SUBJECTIVE: Patient seen and examined OBJECTIVE: Vital Signs Period Temp Pulse Resp BP Sys/Ramos Pulse Ox Last 24 Hr 97.5 F-98.6 F 75-87 20-24 91-134/46-62 97-97 GENERAL: The patient is awake, alert, and fully oriented, in no acute distress. HEAD: Normal with no signs of trauma. EYES: PERRL, extraocular movements intact, sclera anicteric, conjunctiva clear. No ptosis. ENT: Ears normal, nares patent, oropharynx clear without exudates, moist mucous membranes. NECK: Trachea midline, full range of motion, supple. LUNGS: Breath sounds equal, clear to auscultation bilaterally, no wheezes, no crackles, no accessory muscle use. HEART: Regular rate and rhythm, S1, S2 without murmur, rub or gallop. ABDOMEN: Soft, nontender, nondistended, normoactive bowel sounds, no guarding, no rebound, no hepatosplenomegaly, no masses. EXTREMITIES: 2+ pulses, warm, well-perfused, no edema. NEUROLOGICAL: Cranial nerves II through XII grossly intact. Normal speech, gait not observed. PSYCH: Normal mood, normal affect. SKIN: Warm, dry, normal turgor, no rashes or lesions noted Laboratory Results - last 24 hr 07/09/18 07/09/18 07/09/18 11:58 14:14 17:12 WBC RBC Hgb Hct MCV MCH MCHC RDW Plt Count MPV Absolute Neuts (auto) Neutrophils % Lymphocytes % Monocytes % Eosinophils % Basophils % Nucleated RBC % Anticoagulation Therapy No Result Required. Puncture Site Right radial ABG pH 7.37 ABG pCO2 at Pt Temp 37.3 ABG pO2 at Pt Temp 105 ABG HCO3 21.3 L ABG O2 Sat (Measured) 97.0 ABG O2 Content 22.7 H ABG Base Excess -2.9 L Dashawn Test Positive O2 Delivery Device No Result Required. Oxygen Flow Rate Yes Vent Mode S/t Vent Rate No Result Required. Mechanical Rate No Result Required. Pressure Support Vent 18/8 Sodium Potassium Chloride Carbon Dioxide Anion Gap BUN Creatinine Creat Clearance w eGFR POC Glucometer 217 199 Random Glucose Calcium Phosphorus Magnesium Total Bilirubin AST ALT Alkaline Phosphatase Total Protein Albumin 07/09/18 07/10/18 07/10/18 21:41 05:30 05:30 WBC 12.3 H RBC 3.73 L Hgb 11.9 Hct 34.6 L MCV 92.7 MCH 32.0 MCHC 34.5 RDW 14.7 Plt Count 249 MPV 9.2 Absolute Neuts (auto) 10.6 H Neutrophils % 86.3 H Lymphocytes % 5.8 L D Monocytes % 4.8 Eosinophils % 2.9 D Basophils % 0.2 Nucleated RBC % 0 Anticoagulation Therapy Puncture Site ABG pH ABG pCO2 at Pt Temp ABG pO2 at Pt Temp ABG HCO3 ABG O2 Sat (Measured) ABG O2 Content ABG Base Excess Dashawn Test O2 Delivery Device Oxygen Flow Rate Vent Mode Vent Rate Mechanical Rate Pressure Support Vent Sodium 140 Potassium 4.6 Chloride 106 Carbon Dioxide 27 Anion Gap 7 L BUN 90 H Creatinine 4.6 H Creat Clearance w eGFR 12.66 POC Glucometer 179 Random Glucose 195 H Calcium 8.1 L Phosphorus 6.7 H Magnesium 2.6 H Total Bilirubin 0.3 AST 87 H ALT 143 H Alkaline Phosphatase 112 Total Protein 4.9 L Albumin 1.5 L 07/10/18 05:46 WBC RBC Hgb Hct MCV MCH MCHC RDW Plt Count MPV Absolute Neuts (auto) Neutrophils % Lymphocytes % Monocytes % Eosinophils % Basophils % Nucleated RBC % Anticoagulation Therapy Puncture Site ABG pH ABG pCO2 at Pt Temp ABG pO2 at Pt Temp ABG HCO3 ABG O2 Sat (Measured) ABG O2 Content ABG Base Excess Dashawn Test O2 Delivery Device Oxygen Flow Rate Vent Mode Vent Rate Mechanical Rate Pressure Support Vent Sodium Potassium Chloride Carbon Dioxide Anion Gap BUN Creatinine Creat Clearance w eGFR POC Glucometer 174 Random Glucose Calcium Phosphorus Magnesium Total Bilirubin AST ALT Alkaline Phosphatase Total Protein Albumin Active Medications Generic Name Dose Route Start Last Admin Trade Name Freq PRN Reason Stop Dose Admin Acetaminophen 650 mg 07/07/18 20:35 Tylenol - PO Q6H PRN Pain Level 4-10 Albuterol/Ipratropium 1 amp 07/08/18 08:54 07/10/18 07:30 Duoneb - NEB 1 amp Q4H PRN Administration SHORTNESS OF BREATH Carvedilol 25 mg 07/07/18 22:00 07/10/18 09:23 Coreg - PO 25 mg BID MIMI Administration Chlorhexidine Gluconate 1 applic 07/07/18 22:00 07/09/18 21:43 Hibiclens For Decolonization - TP 1 applic HS MIMI Administration Folic Acid 1 mg 07/08/18 10:00 07/10/18 09:23 Folic Acid - PO 1 mg DAILY MIMI Administration Heparin Sodium (Porcine) 5,000 unit 07/07/18 22:00 07/10/18 05:52 Heparin - SQ 5,000 unit TID MIMI Administration Hydromorphone HCl 4 mg 07/09/18 16:09 07/10/18 09:24 Dilaudid - PO 4 mg Q4H PRN Administration PAIN LEVEL 7 - 10 Clindamycin Phosphate 600 mg in 50 mls @ 100 mls/hr 07/08/18 02:00 07/10/18 09:15 Cleocin 600 Mg Premix Ivpb - IVPB 100 mls/hr Q8H-IV MIMI Administration Protocol Piperacillin Sod/Tazobactam 50 mls @ 100 mls/hr 07/07/18 21:00 07/10/18 09:15 Sod 2.25 gm/ Dextrose IVPB 100 mls/hr Q6H-IV MIMI Administration Protocol Sodium Bicarbonate 150 meq/ 1,150 mls @ 100 mls/hr 07/09/18 15:45 07/10/18 05 :43 Dextrose IV 07/12/18 15:44 100 mls/hr Q11H MIMI Administration Insulin Aspart 1 vial 07/07/18 22:00 07/10/18 05:53 Novolog Vial Sliding Scale - SQ 2 unit ACHS MIMI Administration Protocol Morphine Sulfate 4 mg 07/07/18 20:35 07/09/18 14:30 Morphine Sulfate IVPUSH 4 mg Q4H PRN Administration Pain Level 7 - 10 BREAKTHROUGH Mupirocin 1 applic 07/07/18 22:00 07/10/18 09:23 Bactroban Ointment (For Decolonization) - NS 07/12/18 21:59 Not Given BID MIMI Nicotine 14 mg 07/08/18 10:00 07/10/18 09:26 Nicoderm Patch - TD 14 mg DAILY MIMI Administration Oxycodone HCl 5 mg 07/07/18 20:35 Roxicodone - PO Q6H PRN Pain Level 7 - 10 BREAKTHROUGH Rosuvastatin Calcium 40 mg 07/07/18 22:00 07/09/18 22:21 Crestor - PO 40 mg HS MIMI Administration Thiamine HCl 100 mg 07/08/18 10:00 07/10/18 09:26 Vitamin B1 - PO 100 mg DAILY MIMI Administration ASSESSMENT/PLAN:
[2018-07-10 11:57] VITALS: BP 115/54; TEMP 98.7
--- NOTE | 2018-07-10 12:28 | DS ---
Physical Exam: SUBJECTIVE: Patient seen and examined OBJECTIVE: Vital Signs Period Temp Pulse Resp BP Sys/Ramos Pulse Ox Last 24 Hr 97.5 F-98.7 F 79-87 20-24 91-134/54-62 97-97 PHYSICAL EXAM GENERAL: The patient is awake, alert, and fully oriented, in no acute distress. HEAD: Normal with no signs of trauma. EYES: PERRL, extraocular movements intact, sclera anicteric, conjunctiva clear. ENT: Ears normal, nares patent, oropharynx clear without exudates, moist mucous membranes. NECK: Trachea midline, full range of motion, supple. LUNGS: Breath sounds equal, clear to auscultation bilaterally, no wheezes, no crackles, no accessory muscle use. HEART: Regular rate and rhythm, S1, S2 without murmur, rub or gallop. ABDOMEN: Soft, nontender, nondistended, normoactive bowel sounds, no guarding, no rebound, no hepatosplenomegaly, no masses. EXTREMITIES: 2+ pulses, warm, well-perfused, no edema. NEUROLOGICAL: Cranial nerves II through XII grossly intact. Normal speech, gait not observed. PSYCH: Normal mood, normal affect. SKIN: Warm, dry, normal turgor, no rashes or lesions noted. LABS Laboratory Results - last 24 hr 07/09/18 07/09/18 07/09/18 14:14 17:12 21:41 WBC RBC Hgb Hct MCV MCH MCHC RDW Plt Count MPV Absolute Neuts (auto) Neutrophils % Lymphocytes % Monocytes % Eosinophils % Basophils % Nucleated RBC % Anticoagulation Therapy No Result Required. Puncture Site Right radial ABG pH 7.37 ABG pCO2 at Pt Temp 37.3 ABG pO2 at Pt Temp 105 ABG HCO3 21.3 L ABG O2 Sat (Measured) 97.0 ABG O2 Content 22.7 H ABG Base Excess -2.9 L Dashawn Test Positive O2 Delivery Device No Result Required. Oxygen Flow Rate Yes Vent Mode S/t Vent Rate No Result Required. Mechanical Rate No Result Required. Pressure Support Vent 18/8 Sodium Potassium Chloride Carbon Dioxide Anion Gap BUN Creatinine Creat Clearance w eGFR POC Glucometer 199 179 Random Glucose Calcium Phosphorus Magnesium Total Bilirubin AST ALT Alkaline Phosphatase Total Protein Albumin 07/10/18 07/10/18 07/10/18 05:30 05:30 05:46 WBC 12.3 H RBC 3.73 L Hgb 11.9 Hct 34.6 L MCV 92.7 MCH 32.0 MCHC 34.5 RDW 14.7 Plt Count 249 MPV 9.2 Absolute Neuts (auto) 10.6 H Neutrophils % 86.3 H Lymphocytes % 5.8 L D Monocytes % 4.8 Eosinophils % 2.9 D Basophils % 0.2 Nucleated RBC % 0 Anticoagulation Therapy Puncture Site ABG pH ABG pCO2 at Pt Temp ABG pO2 at Pt Temp ABG HCO3 ABG O2 Sat (Measured) ABG O2 Content ABG Base Excess Dashawn Test O2 Delivery Device Oxygen Flow Rate Vent Mode Vent Rate Mechanical Rate Pressure Support Vent Sodium 140 Potassium 4.6 Chloride 106 Carbon Dioxide 27 Anion Gap 7 L BUN 90 H Creatinine 4.6 H Creat Clearance w eGFR 12.66 POC Glucometer 174 Random Glucose 195 H Calcium 8.1 L Phosphorus 6.7 H Magnesium 2.6 H Total Bilirubin 0.3 AST 87 H ALT 143 H Alkaline Phosphatase 112 Total Protein 4.9 L Albumin 1.5 L 07/10/18 10:53 WBC RBC Hgb Hct MCV MCH MCHC RDW Plt Count MPV Absolute Neuts (auto) Neutrophils % Lymphocytes % Monocytes % Eosinophils % Basophils % Nucleated RBC % Anticoagulation Therapy Puncture Site ABG pH ABG pCO2 at Pt Temp ABG pO2 at Pt Temp ABG HCO3 ABG O2 Sat (Measured) ABG O2 Content ABG Base Excess Dashawn Test O2 Delivery Device Oxygen Flow Rate Vent Mode Vent Rate Mechanical Rate Pressure Support Vent Sodium Potassium Chloride Carbon Dioxide Anion Gap BUN Creatinine Creat Clearance w eGFR POC Glucometer 189 Random Glucose Calcium Phosphorus Magnesium Total Bilirubin AST ALT Alkaline Phosphatase Total Protein Albumin HOSPITAL COURSE: Date of Admission:07/07/18 Date of Discharge: 07/10/18 Discharge Summary Reason For Visit: COLLEEN'S GANGRENE,SEPSIS Condition: Critical - Instructions Disposition: TRANSFER ACUTE CARE/OTHER HOSP - Home Medications Comprehensive Discharge Medication List: Ambulatory Orders Carvedilol [Coreg -] 25 mg PO BID 06/09/15 Cyanocobalamin (Vitamin B-12) [Vitamin B-12] 1,000 mcg PO DAILY 06/09/15 Folic Acid - 1 mg PO DAILY 06/09/15 Glyburide [Diabeta] 1.25 mg PO HS 06/09/15 Methyl-B12/l-Mefolate/B6 Phos [Metanx Tablet] 1 each PO BID 06/09/15 Multivit-Min/FA/Lycopen/Lutein [Centrum Silver Tablet] 1 each PO DAILY 06/09/15 Bandon-3 Fatty Acids [Fish Oil] 1,200 mg PO BID 06/09/15 Rosuvastatin Calcium [Crestor] 40 mg PO DAILY 06/09/15 Silodosin [Rapaflo] 8 mg PO DAILY 06/09/15 Spironolactone [Aldactone] 25 mg PO DAILY 06/09/15 Glyburide [Diabeta -] 2.5 mg PO AM 07/07/18 - Discharge Referral Referred to [facility] No
--- NOTE | 2018-07-10 12:28 | PN ---
Progress Note, Physician History of Present Illness: Pt seen and examined at bedside. He is awake and alert. He feels that his breathing is improved. He is off of bipap. - Current Medication List Current Medications: Active Medications Acetaminophen (Tylenol -) 650 mg PO Q6H PRN PRN Reason: Pain Level 4-10 Albuterol/Ipratropium (Duoneb -) 1 amp NEB Q4H PRN PRN Reason: SHORTNESS OF BREATH Last Admin: 07/10/18 07:30 Dose: 1 amp Carvedilol (Coreg -) 25 mg PO BID [facility] Last Admin: 07/10/18 09:23 Dose: 25 mg Chlorhexidine Gluconate (Hibiclens For Decolonization -) 1 applic TP HS [facility] Last Admin: 07/09/18 21:43 Dose: 1 applic Folic Acid (Folic Acid -) 1 mg PO DAILY [facility] Last Admin: 07/10/18 09:23 Dose: 1 mg Heparin Sodium (Porcine) (Heparin -) 5,000 unit SQ TID MIMI Last Admin: 07/10/18 05:52 Dose: 5,000 unit Hydromorphone HCl (Dilaudid -) 4 mg PO Q4H PRN PRN Reason: PAIN LEVEL 7 - 10 Last Admin: 07/10/18 09:24 Dose: 4 mg Clindamycin Phosphate (Cleocin 600 Mg Premix Ivpb -) 600 mg in 50 mls @ 100 mls /hr IVPB Q8H-IV MIMI; Protocol Last Admin: 07/10/18 09:15 Dose: 100 mls/hr Piperacillin Sod/Tazobactam (Sod 2.25 gm/ Dextrose) 50 mls @ 100 mls/hr IVPB Q6H-IV MIMI; Protocol Last Admin: 07/10/18 09:15 Dose: 100 mls/hr Sodium Bicarbonate 150 meq/ (Dextrose) 1,150 mls @ 100 mls/hr IV Q11H [facility] Stop: 07/12/18 15:44 Last Admin: 07/10/18 05:43 Dose: 100 mls/hr Insulin Aspart (Novolog Vial Sliding Scale -) 1 vial SQ ACHS [facility]; Protocol Last Admin: 07/10/18 10:54 Dose: 2 unit Morphine Sulfate (Morphine Sulfate) 4 mg IVPUSH Q4H PRN PRN Reason: Pain Level 7 - 10 BREAKTHROUGH Last Admin: 07/09/18 14:30 Dose: 4 mg Mupirocin (Bactroban Ointment (For Decolonization) -) 1 applic NS BID [facility] Stop: 07/12/18 21:59 Last Admin: 07/10/18 09:23 Dose: Not Given Nicotine (Nicoderm Patch -) 14 mg TD DAILY [facility] Last Admin: 07/10/18 09:26 Dose: 14 mg Oxycodone HCl (Roxicodone -) 5 mg PO Q6H PRN PRN Reason: Pain Level 7 - 10 BREAKTHROUGH Rosuvastatin Calcium (Crestor -) 40 mg PO HS [facility] Last Admin: 07/09/18 22:21 Dose: 40 mg Thiamine HCl (Vitamin B1 -) 100 mg PO DAILY [facility] Last Admin: 07/10/18 09:26 Dose: 100 mg - Objective Vital Signs: Vital Signs Temperature 98.7 F 07/10/18 10:00 Pulse Rate 84 07/10/18 11:00 Respiratory Rate 22 H 07/10/18 11:00 Blood Pressure 115/54 L 07/10/18 11:00 O2 Sat by Pulse Oximetry (%) 97 07/10/18 08:17 Constitutional: Yes: Calm Eyes: Yes: Conjunctiva Clear HENT: Yes: Atraumatic Neck: Yes: Supple Cardiovascular: Yes: S1, S2 Respiratory: Yes: On Nasal O2 Gastrointestinal: Yes: Soft, Abdomen, Obese Genitourinary: Yes: Parson Present Edema: Yes Edema: LLE: 1+, RLE: 1+ Neurological: Yes: Oriented Psychiatric: Yes: Oriented Labs: CBC, BMP 07/10/18 05:30 07/10/18 05:30 INR, PTT INR 1.15 (0.83-1.09) H 07/08/18 06:30 Problem List - Problems (1) Acute kidney injury superimposed on CKD Code(s): N17.9 - ACUTE KIDNEY FAILURE, UNSPECIFIED; N18.9 - CHRONIC KIDNEY DISEASE, UNSPECIFIED (2) Diabetes mellitus type 2 in obese Code(s): E11.69 - TYPE 2 DIABETES MELLITUS WITH OTHER SPECIFIED COMPLICATION; E66.9 - OBESITY, UNSPECIFIED (3) Diabetes Code(s): E11.9 - TYPE 2 DIABETES MELLITUS WITHOUT COMPLICATIONS Qualifiers: Diabetes mellitus type: type 2 Diabetes mellitus complication status: with circulatory complication Diabetes mellitus complication detail: with peripheral angiopathy without gangrene Qualified Code(s): E11.51 - Type 2 diabetes mellitus with diabetic peripheral angiopathy without gangrene (4) FSGS (focal segmental glomerulosclerosis) Code(s): N05.1 - UNSP NEPH SYNDROME W FOCAL AND SEGMENTAL GLOMERULAR LESIONS (5) Hypertension Code(s): I10 - ESSENTIAL (PRIMARY) HYPERTENSION Qualifiers: Hypertension type: essential hypertension Qualified Code(s): I10 - Essential (primary) hypertension Assessment/Plan Impression 1. CKD with hx of FSGS 2. PVD 3. DM 4. HTN 5. hyperlipidemia 6. BPH 7. CAD 8. fourniers gangrene 9. PIYUSH 10. cardiac arrest Plan - renal function is improving - can d/c bicarb drip - monitor urine output - pt is being transferred to [facility] - cont bipap as needed - surgery follow up - hold diuretics for now
--- NOTE | 2018-07-10 13:02 | PN ---
Teaching Attending Note Name of Resident: Simin Anderson ATTENDING PHYSICIAN STATEMENT I saw and evaluated the patient. I reviewed the resident's note and discussed the case with the resident. I agree with the resident's findings and plan as documented. SUBJECTIVE: Patient seen & examined in the ICU. Awake and alert. Currently off pressors. BP stable on A line tracing. (+) discomfort at the surgical site. CPAP overnight. Arrangements being made for transfer to [facility] for tertiary surgical care. Intake & Output 07/07/18 07/08/18 07/09/18 07/10/18 23:59 23:59 23:59 23:59 Intake Total 3100 4475 2650 1900 Output Total 1400 1070 1720 1300 Balance 1700 3405 930 600 Weight 295 lb 286 lb 286 lb 295 lb 13.765 oz Last Vital Signs Temp Pulse Resp BP Pulse Ox 98.7 F 84 22 H 115/54 L 97 07/10/18 10:00 07/10/18 11:00 07/10/18 11:00 07/10/18 11:00 07/10/18 08:17 Active Medications Acetaminophen (Tylenol -) 650 mg PO Q6H PRN PRN Reason: Pain Level 4-10 Albuterol/Ipratropium (Duoneb -) 1 amp NEB Q4H PRN PRN Reason: SHORTNESS OF BREATH Last Admin: 07/09/18 15:19 Dose: 1 amp Carvedilol (Coreg -) 25 mg PO BID [facility] Last Admin: 07/09/18 10:33 Dose: 25 mg Chlorhexidine Gluconate (Hibiclens For Decolonization -) 1 applic TP HS [facility] Last Admin: 07/08/18 21:59 Dose: 1 applic Folic Acid (Folic Acid -) 1 mg PO DAILY [facility] Last Admin: 07/09/18 10:32 Dose: 1 mg Heparin Sodium (Porcine) (Heparin -) 5,000 unit SQ TID [facility] Last Admin: 07/09/18 13:34 Dose: 5,000 unit Clindamycin Phosphate (Cleocin 600 Mg Premix Ivpb -) 600 mg in 50 mls @ 100 mls /hr IVPB Q8H-IV MIMI; Protocol Last Admin: 07/09/18 10:08 Dose: 100 mls/hr Piperacillin Sod/Tazobactam (Sod 2.25 gm/ Dextrose) 50 mls @ 100 mls/hr IVPB Q6H-IV MIMI; Protocol Last Admin: 07/09/18 14:30 Dose: 100 mls/hr Insulin Aspart (Novolog Vial Sliding Scale -) 1 vial SQ ACHS [facility]; Protocol Last Admin: 07/09/18 12:00 Dose: 4 unit Morphine Sulfate (Morphine Sulfate) 4 mg IVPUSH Q4H PRN PRN Reason: Pain Level 7 - 10 BREAKTHROUGH Last Admin: 07/09/18 14:30 Dose: 4 mg Mupirocin (Bactroban Ointment (For Decolonization) -) 1 applic NS BID [facility] Stop: 07/12/18 21:59 Last Admin: 07/09/18 10:09 Dose: 1 applic Nicotine (Nicoderm Patch -) 14 mg TD DAILY [facility] Last Admin: 07/09/18 10:31 Dose: 14 mg Oxycodone HCl (Roxicodone -) 5 mg PO Q6H PRN PRN Reason: Pain Level 7 - 10 BREAKTHROUGH Rosuvastatin Calcium (Crestor -) 40 mg PO HS [facility] Last Admin: 07/08/18 21:09 Dose: Not Given Thiamine HCl (Vitamin B1 -) 100 mg PO DAILY [facility] Last Admin: 07/09/18 10:32 Dose: 100 mg Constitutional: Yes: Awake and alert, NAD Eyes: Yes: Conjunctiva Clear HENT: Yes: Atraumatic Neck: Yes: Supple Cardiovascular: Yes: S1, S2 Respiratory: Yes: On Nasal O2 Gastrointestinal: Yes: Soft, Abdomen, Obese Genitourinary: Yes: Parson Present Edema: Yes Edema: LLE: 1+, RLE: 1+ Neurological: Yes: Oriented Psychiatric: Yes: Oriented Labs: Laboratory Results - last 24 hr 07/09/18 07/09/18 07/09/18 14:14 17:12 21:41 WBC RBC Hgb Hct MCV MCH MCHC RDW Plt Count MPV Absolute Neuts (auto) Neutrophils % Lymphocytes % Monocytes % Eosinophils % Basophils % Nucleated RBC % Anticoagulation Therapy No Result Required. Puncture Site Right radial ABG pH 7.37 ABG pCO2 at Pt Temp 37.3 ABG pO2 at Pt Temp 105 ABG HCO3 21.3 L ABG O2 Sat (Measured) 97.0 ABG O2 Content 22.7 H ABG Base Excess -2.9 L Dashawn Test Positive O2 Delivery Device No Result Required. Oxygen Flow Rate Yes Vent Mode S/t Vent Rate No Result Required. Mechanical Rate No Result Required. Pressure Support Vent 18/8 Sodium Potassium Chloride Carbon Dioxide Anion Gap BUN Creatinine Creat Clearance w eGFR POC Glucometer 199 179 Random Glucose Calcium Phosphorus Magnesium Total Bilirubin AST ALT Alkaline Phosphatase Total Protein Albumin 07/10/18 07/10/18 07/10/18 05:30 05:30 05:46 WBC 12.3 H RBC 3.73 L Hgb 11.9 Hct 34.6 L MCV 92.7 MCH 32.0 MCHC 34.5 RDW 14.7 Plt Count 249 MPV 9.2 Absolute Neuts (auto) 10.6 H Neutrophils % 86.3 H Lymphocytes % 5.8 L D Monocytes % 4.8 Eosinophils % 2.9 D Basophils % 0.2 Nucleated RBC % 0 Anticoagulation Therapy Puncture Site ABG pH ABG pCO2 at Pt Temp ABG pO2 at Pt Temp ABG HCO3 ABG O2 Sat (Measured) ABG O2 Content ABG Base Excess Dashawn Test O2 Delivery Device Oxygen Flow Rate Vent Mode Vent Rate Mechanical Rate Pressure Support Vent Sodium 140 Potassium 4.6 Chloride 106 Carbon Dioxide 27 Anion Gap 7 L BUN 90 H Creatinine 4.6 H Creat Clearance w eGFR 12.66 POC Glucometer 174 Random Glucose 195 H Calcium 8.1 L Phosphorus 6.7 H Magnesium 2.6 H Total Bilirubin 0.3 AST 87 H ALT 143 H Alkaline Phosphatase 112 Total Protein 4.9 L Albumin 1.5 L 07/10/18 10:53 WBC RBC Hgb Hct MCV MCH MCHC RDW Plt Count MPV Absolute Neuts (auto) Neutrophils % Lymphocytes % Monocytes % Eosinophils % Basophils % Nucleated RBC % Anticoagulation Therapy Puncture Site ABG pH ABG pCO2 at Pt Temp ABG pO2 at Pt Temp ABG HCO3 ABG O2 Sat (Measured) ABG O2 Content ABG Base Excess Dashawn Test O2 Delivery Device Oxygen Flow Rate Vent Mode Vent Rate Mechanical Rate Pressure Support Vent Sodium Potassium Chloride Carbon Dioxide Anion Gap BUN Creatinine Creat Clearance w eGFR POC Glucometer 189 Random Glucose Calcium Phosphorus Magnesium Total Bilirubin AST ALT Alkaline Phosphatase Total Protein Albumin Problem List - Problems (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 transplanted heart: [place] heart Associated angina: without angina Qualified Code(s): I25.10 - Atherosclerotic heart disease of [place] coronary artery without angina pectoris (6) Peripheral arterial occlusive disease Code(s): I77.9 - DISORDER OF ARTERIES AND ARTERIOLES, UNSPECIFIED (7) Tobacco dependence due to cigarettes Code(s): F17.210 - NICOTINE DEPENDENCE, CIGARETTES, UNCOMPLICATED ASSESSMENT/PLAN: Resolving Septic Shock due to Nika's gangrene DM HTN HPL CAD CHF CKD Peripheral arterial occlusive dz BPH OSAS ABX per ID O2 as needed CPAP QHS & PRN Strict I & O Local wound care per surgery Hold anti-hypertensive agents Pressors for MAP < 65 For transfer to [facility] for tertiary level of surgical care Dr Grey Critical care time spent in reviewing chart, evaluating patient and formulating plan - 36 minutes.
--- NOTE | 2018-07-11 12:54 | PATH ---
Surgical Pathology Report Patient Name: AI GOODWIN [facility]. Rec. #: [id number] /Age/Gender: 1945 (Age: 73) / M Account: [id number] Location: ICU FINANCIAL BUSINESS ANALYST Taken: 07/07/2018 Received: 07/10/2018 Reported: 07/11/2018 Physicians: Tashi Schmidt M.D. PHYSICIAN EMERGENCY DEPT Specimen(s) Received PERINEAL TISSUE Clinical History Nika's gangrene, sepsis Final Diagnosis SKIN AND SOFT TISSUE, PERINEAL, DEBRIDEMENT: GANGRENOUS NECROSIS. Electronically Signed Reid Del Toro M.D. Gross Description Received in formalin labeled "perineal tissue" is an 18.0 x 12.0 x 3.5 cm aggregate of abundant necrotic portions of skin and soft tissue. Director Of Special Education sections are submitted in one cassette. /07/10/2018 saudi/07/10/2018
--- NOTE | 2018-07-22 07:10 | OP ---
DATE OF OPERATION: 07/07/2018 PREOPERATIVE DIAGNOSES: Nika gangrene and sepsis. POSTOPERATIVE DIAGNOSES: Nika gangrene and sepsis. PROCEDURE: Debridement of Nika gangrene/necrotizing infection of perineum, right perirectal area, scrotum (with Urology), debridement of skin, subcutaneous tissue, fascia and muscle, approximately 600 sq cm. SURGEON: Tashi Schmidt MD CO-SURGEON: Nikunj Olsen MD ANESTHESIA: Spinal. ESTIMATED BLOOD LOSS: 100 mL. FLUIDS: Crystalloid 2 L. URINE OUTPUT: 500 mL. DRAIN: An 18-Greek Parson catheter placed by Urology and left in place at the end of the procedure. SPECIMENS: Culture swabs taken of scrotal tissue and perirectal necrotic pockets of tissue and fluid as well as tissue cultures sent from both the perineal and perirectal/ ischiorectal areas. Also perineal tissue which was debrided was sent to Pathology in multiple pieces. FINDINGS: Extensive necrotic tissue in the scrotum and bilateral tunica vaginalis. The testicles were intact and viable. Necrotic tissue in the perineal area and right perirectal and perianal area. The infection likely started as a perirectal abscess on the right with necrotic tracts into the ischiorectal fossa on the right. After complete debridement of all necrotic tissue the testicles were pexied up under the remaining scrotal skin, tacked with sutures to hold (see Dr. Olsen's separately dictated note). The entire wound bed was also packed with 3 rolls of Kerlix gauze dampened with Betadine and saline. DISPOSITION: Hemodynamically stable but critical to surgical ICU. INDICATIONS FOR PROCEDURE: The patient is a 73-year-old male with multiple medical problems including hypertension, diabetes, atrial fibrillation, chronic kidney disease and a history of cardiac stents who presented with 3 to 4 days' worth of perirectal pain at home and no bowel movement for 3 days which is unusual by his report. He had poor appetite for several days but no nausea and vomiting and had associated sweats and chills but no fever. On Tuesday he had fallen from the bed to the floor and EMS was called to help him, but he refused to go to the hospital stating he had only bumped his leg a little and had no significant trauma but had been feeling weak. He is a 7-tlpe-h-day smoker and daily beer drinker. Had last had his medications except for his aspirin this morning but ultimately came to the hospital today because the pain was getting significant and in the emergency room Nika gangrene was suspected and Surgery promptly called for evaluation. He had a white count of 15,000, elevated glucose at 280, hemoglobin of 15 and erythema and induration of the right gluteal and perirectal area and gluteal crease extending over the perineum to bruising on the posterior scrotum with tenderness and redness as well. He had a temperature of 100.8 and his blood pressure was running a little low in the 90s systolic. Urology was immediately called to also evaluate him along with Surgery in the emergency room. Antibiotics were immediately started, clindamycin, vancomycin and Zosyn. He was hydrated with IV fluids and discussion was had with the patient regarding risks, benefits and alternatives of local, possible wide debridement of Nika gangrene including but not limited to bleeding, infection, injury to adjacent structures, loss of testicle or testicles, need for further procedures and with alternatives inclusive of antibiotics and delayed or no surgery which would lead most likely to progression of the necrosis, sepsis, need for more extensive debridement and potentially . The patient was agreeable to proceed with the operation, signed informed consent for the same and is brought emergently to the operating room along with the urologist as co-surgeon for the above procedure. OPERATIVE TECHNIQUE: The patient was brought to the operating room and moved over on to the operating table where he was sat up for Anesthesia to perform spinal anesthesia at which point he was then laid supine on the operating table and placed into the lithotomy position with his legs and feet up in [employer] [employer] stirrups. After a timeout was held the patient's entire genital, groin, perineal and perianal/perirectal area were prepped and draped with Betadine in sterile fashion. Urology, that is Dr. Olsen, placed an 18-Greek Parson catheter which was left in place postoperatively and according to his separately dictated note he began the procedure with sharp debridement of the patient's necrotic scrotal tissue ultimately determining that the testes were uninvolved and viable. These were ultimately pexied up under some of the remaining superior scrotal tissue which was tacked with sutures to hold them in place but not for complete closure at the end of the operation. Once the scrotal and peritesticular skin and tissues had been debrided, cultured and the extended dissection extended on to the patient's perineum I continued the dissection of all necrotic tissues. A scalpel and Bovie cautery were used to excise all clearly affected and necrotic skin and into the subcutaneous tissues. Bleeding tissues were not initially encountered as part of the dissection of the right perineal and perirectal tissues although extensive necrotic tissues were encountered. Several culture swabs as well as tissue cultures were taken and sent for microbiology. Remaining tissue in portions was also set aside for sending to Pathology as specimens. Dissection proceeded into the subcutaneous tissues in the perineal area and down into the right perirectal and perianal area inclusive of some fascia and muscle tissue at the deepest points until bleeding surfaces and tissues were encountered both at the skin edges as well as deeply. Again Bovie cautery, forceps, scissors and scalpel were used for all of this dissection. It became clear as we neared the right perianal area that the necrotic tissues appeared to dive into what was probably the ischiorectal fossa on the right and that the infection may have begun as an untreated perirectal abscess that extended to adjacent tissues. All visible and reachable dark foul and necrotic tissue was debrided until again bleeding surfaces were encountered. Hemostasis was achieved with electrocautery. In this case once bleeding was encountered and once all tissue had been removed and we appeared to have clean viable margins the area was irrigated copiously with saline solution and mechanically cleaned with gauze as well. The exact dimensions of the irregular area were difficult to fully appreciate, but the area was easily 20 to 25 by 30 cm or more in general dimensions. It is estimated that at least 600 sq cm of skin and subcutaneous tissue were debrided down to and including some fascia and muscle tissue at the base of the wounds primarily in the perirectal area. Once the wounds were clean and the full extent of the debridement had been completed by Urology as well as myself Dr. Olsen and I were able to make sure that the scrotal skin was tacked partially closed with sutures such that the testicles could be tucked up into that pocket with space behind and underneath for some of the gauze packing. Three rolls of Betadine- and saline-dampened Kerlix gauze were then used to pack the entirety of the open tissue spaces including the area back up behind the scrotal pocket as well as into the pockets around the perianal and right perirectal area up toward the ischiorectum and making sure that all the packing was contained within the wound edges and not on to intact skin. Once the entire wound had been packed a number of ABD pads were used to cover the open areas and secured in place with large silk tape. Before finalizing the dressing digital rectal exam was performed to ensure that there was no apparent compromise to the anorectal tissue and indeed the anal canal and palpable portion of the rectum were felt to be completely intact and a small bit of soft brown stool was evacuated on the glove tip. The patient was then taken out of lithotomy position, the Parson catheter secured to the upper portion of his right thigh immediately adjacent to the dressings with a StatLock. Counts were correct at the end of the procedure although an instrument count had not actually been performed. Thus an x-ray was done prior to leaving the OR which showed no presence of any instruments or metallic objects in the field. The patient was then moved back to an ICU bed and taken to the recovery room before the ICU in hemodynamically stable but critical condition. He did tolerate the procedure well and was awake at the end of the case. Again Dr. Olsen's separate note on debridement of the scrotum and testicles may be consulted in a separate dictation. Tashi Schmidt M.D. [id number]
== END 2018-07-10 12:26 | disposition short-term general hospital (02) | DRG 853 ==
LOC: JER 09:39 → JERBED 11:50 → JICU 23:34
PROVIDERS: ADMIT Internal Medicine; ATTEND Nurse Practitioner Family
PROC: 0VQC0ZZ Repair Bilateral Testes, Open Approach (ICD-10-PCS; 2018-07-07)
PROC: 0KBM0ZZ Excision of Perineum Muscle, Open Approach (ICD-10-PCS; principal; 2018-07-07 12:00)
PROC: 0BH Respiratory System, Insertion (ICD-10-PCS; 2018-07-08)
PROC: 05HN33Z Insertion of Infusion Device into Left Internal Jugular Vein, Percutaneous Approach (ICD-10-PCS; 2018-07-08)
DX: A41.51 Sepsis due to Escherichia coli [E. coli] (principal); R65.21 Severe sepsis with septic shock; N17.9 Acute kidney failure, unspecified; E11.52 Type 2 diabetes mellitus with diabetic peripheral angiopathy with gangrene; E87.2 Acidosis; I97.121 Postprocedural cardiac arrest following other surgery; N49.3 Fournier gangrene; E11.22 Type 2 diabetes mellitus with diabetic chronic kidney disease; N18.3 Chronic kidney disease, stage 3 (moderate); E78.5 Hyperlipidemia, unspecified; I25.10 Atherosclerotic heart disease of native coronary artery without angina pectoris; N40.0 Benign prostatic hyperplasia without lower urinary tract symptoms; E66.9 Obesity, unspecified; Z68.39 Body mass index [BMI] 39.0-39.9, adult; I12.9 Hypertensive chronic kidney disease with stage 1 through stage 4 chronic kidney disease, or unspecified chronic kidney disease; Z98.61 Coronary angioplasty status; F17.210 Nicotine dependence, cigarettes, uncomplicated; Y83.9 Surgical procedure, unspecified as the cause of abnormal reaction of the patient, or of later complication, without mention of misadventure at the time of the procedure
CPT/HCPCS: 36415; 36600; 71045-TC-FY; 72170-TC-FY; 80048; 80053; 80061; 81003; 82550; 82553; 82803; 82962; 83036; 83605; 83721; 83735; 84100; 84484; 85025; 85610; 85651; 85730; 86140; 86850; 86900; 86901; 87040; 87070; 87075; 87076; 87077; 87186; 87205; 88304-TC; 90688; 93005; 93010; 94640; 94660; 94760; 99285-25; G0008; J1644; J7030